=== PATIENT | male | born 1960 | race Caucasian/White ===

== ENCOUNTER → 2021-10-07 09:41 | Outpatient (BNVA) | payer MEDICARE, SELFPAY | PROVIDERS: PCP Internal Medicine; Visit Provider Hospitalist | DX: J44.9 Chronic obstructive pulmonary disease, unspecified (principal); J31.0 Chronic rhinitis; J84.9 Interstitial pulmonary disease, unspecified; R06.00 Dyspnea, unspecified; J34.89 Other specified disorders of nose and nasal sinuses; G47.33 Obstructive sleep apnea (adult) (pediatric); Z77.090 Contact with and (suspected) exposure to asbestos | CPT/HCPCS: 94618; 99202 ==

== ENCOUNTER 2021-12-23 10:36 | Outpatient (REF) | payer MEDICARE, SELFPAY | END 2021-12-23 10:37 | disposition home or self-care (01) | LOC: HO.XRAY 10:36 | PROVIDERS: PCP Internal Medicine; Visit Provider Hospitalist | DX: J84.9 Interstitial pulmonary disease, unspecified (principal); J44.9 Chronic obstructive pulmonary disease, unspecified; R06.00 Dyspnea, unspecified; G47.33 Obstructive sleep apnea (adult) (pediatric); J34.89 Other specified disorders of nose and nasal sinuses; Z77.090 Contact with and (suspected) exposure to asbestos | CPT/HCPCS: 99212 ==

== ENCOUNTER 2022-01-19 15:45 | Outpatient (REF) | payer MEDICARE, SELFPAY ==
--- NOTE | ~2022-01-19 | XR_ITS ---
EXAMINATION: XR CHEST CLINICAL INFORMATION: Difficulty breathing. Interstitial pulmonary disease COMPARISON: None TECHNIQUE: 2 views of the chest were obtained. FINDINGS: Heart size borderline with slight distention of the pulmonary vessels and an underlying prominence to the interstitial pattern suggestive of edema or pneumonitis. No pleural effusion. Postsurgical changes observed in the right shoulder joint. XR/XR chest 2V IMPRESSION: Initial pneumonitis versus edema.
== END 2022-01-19 15:46 | disposition home or self-care (01) ==
LOC: HO.XRAY 15:45
PROVIDERS: Visit Provider Hospitalist
DX: J84.9 Interstitial pulmonary disease, unspecified (principal)
CPT/HCPCS: 71046

== ENCOUNTER 2022-02-20 09:26 | Outpatient (REF) | payer MEDICARE, SELFPAY ==
[2022-02-20 15:35] LABS: MANUAL DIFF FLAG NO
[2022-02-20 15:47] LABS: Venous Blood Gas Refer to POC result
[2022-02-20 15:50] LABS: VBG pCO2 63 mmHg; VBG pO2 35 mmHg
[2022-02-20 15:51] LABS: VBG Base Excess 1.4 mmol/L; VBG HCO3 30 mmol/L (22-26)
[2022-02-20 15:52] LABS: VBG pH 7.28 (7.32-7.43)
[2022-02-20 15:58] LABS: Ammonia 31 umol/L (13-55); Basophils Percent Auto 0.4 % (0-2); Eosinophils Absolute Auto 0.2 X10*3/uL (0.0-0.4); Eosinophils Percent Auto 2.6 % (0-4); Hematocrit 51.9 % (42.0-52.0); Hemoglobin 16.7 g/dl (14.0-18.0); Imm Gran Abs Auto 0.03 X10*3/uL (0.00-0.03); Imm Gran Pct Auto 0.4 % (0.0-0.4); Lymphocytes Absolute Auto 1.4 X10*3/uL (1.2-4.9); Lymphocytes Percent Auto 18.8 % (20-40); Mean Corpuscular HGB Conc 32.2 g/dl (31.0-36.0); Mean Corpuscular Hemoglobin 29.3 pg (27.0-33.0); Mean Corpuscular Volume 91.2 fL (80.0-98.0); Mean Platelet Volume 10.2 fL (9.4-12.4); Monocytes Absolute Auto 0.5 X10*3/uL (0.1-1.2); Monocytes Percent Auto 6.3 % (2-11); Neutrophils Absolute Auto 5.2 x10*3/uL (2.0-8.3); Neutrophils Percent Auto 71.5 % (45-73); Platelet Count 179 X10*3/uL (160-400); Red Blood Count 5.69 X10*6/uL (4.60-5.80); Red Cell Distribution Width 13.2 % (11.0-16.0); White Blood Count 7.3 X10*3/uL (4.8-10.8)
[2022-02-20 16:05] LABS: Alanine Aminotransferase 21 U/L (0-40); Albumin Level 4.1 g/dL (3.5-5.0); Alkaline Phosphatase 112 U/L (39-117); Anion Gap 16 (12-20); Aspartate Amino Transferase 25 U/L (5-37); Bilirubin Direct 0.2 mg/dL (0.0-0.5); Bilirubin Total 0.7 mg/dL (0.0-1.0); Blood Urea Nitrogen 13 mg/dL (9-16); Calcium 10.4 mg/dL (8.4-10.2); Carbon Dioxide 28 mmol/L (22-29); Chloride 103 mmol/L (96-108); Estimated Glomerular Filt Rate > 60; Glucose Random 93 mg/dL (60-115); Potassium 5.9 mmol/L (3.3-5.1); Sodium 141 mmol/L (135-145); Total Protein 8.8 g/dL (6.5-8.0)
[2022-02-20 17:06] LABS: Erythrocyte Sedimentation Rate 22 MM/HR (0-15)
== END 2022-02-20 09:27 | disposition home or self-care (01) ==
LOC: HO.LAB 09:26
PROVIDERS: PCP Internal Medicine; Visit Provider Hospitalist
DX: J44.9 Chronic obstructive pulmonary disease, unspecified (principal); R41.82 Altered mental status, unspecified; J96.01 Acute respiratory failure with hypoxia; J96.02 Acute respiratory failure with hypercapnia; J84.9 Interstitial pulmonary disease, unspecified; J34.89 Other specified disorders of nose and nasal sinuses; Z77.090 Contact with and (suspected) exposure to asbestos
CPT/HCPCS: 36415; 80048; 80076; 82140; 82803; 85025; 85652; Q3014

== ENCOUNTER 2022-02-20 16:46 | Inpatient (IN) | payer MEDICARE, SELFPAY ==
--- NOTE | ~2022-02-20 | CT_ITS ---
EXAMINATION: CT CHEST WITHOUT CONTRAST CLINICAL INFORMATION: Cough, shortness of breath COMPARISON: X-ray 01/19/2022 TECHNIQUE: Multidetector volumetric CT imaging of the chest was done. Axial MIP volume rendering provided. Sagittal and coronal reformatted images were obtained. This CT examination was performed using dose optimization techniques as appropriate, variously including the following: *Automated exposure control *Adjustment of mA and/or kV according to patient size (this includes techniques or standardized protocols for targeted exams where dose is matched to indication/reason for exam; i.e. extremities or head) *Use of iterative reconstruction technique DLP: 375 mGy-cm FINDINGS: LUNGS: Trachea and central airway are patent. There is extensive multifocal groundglass opacities and interstitial prominence diffusely in bilateral lungs. More prominent confluent changes are seen in the inferior aspect of the right middle lobe, and in the right lower lobe, with component of peripheral distribution. Findings could reflect inflammatory, infectious process.. This pattern of infection can be seen in Covid disease. MEDIASTINUM: Heart size is borderline. Normal caliber aorta. No mediastinal or hilar lymphadenopathy seen. There are subcentimeter lymph nodes in the mediastinum. No pericardial effusion. CORONARY ARTERY CALCIFICATION: Coronary artery calcification present. PLEURA: There is no pleural effusion. No pleural mass or thickening. AXILLA: No axillary lymphadenopathy. UPPER ABDOMEN: Slightly lobular/nodular contour of the liver. No focal lesion seen. No biliary duct dilatation. Enlarged spleen measuring 15.7 cm AP. OSSEOUS STRUCTURES: There appears to severe right glenohumeral joint arthritis. Metallic screws/anchors in the right humeral head. Multilevel degenerative changes in the spine. CT/CT chest wo IV con IMPRESSION: 1. Multifocal groundglass opacities with interstitial prominence extensively in bilateral lungs, with more prominent changes in the right middle lobe inferiorly, in the right lower lobe. Differential consideration include infectious, inflammatory etiologies... This pattern can be seen with Covid disease, clinically correlate. Recommend follow-up imaging to ensure resolution of these findings. 2. Slightly lobulated contour of the liver. Splenomegaly. Clinically correlate. Further evaluation with follow-up ultrasound, CT without contrast as clinically warranted. 3. Severe right shoulder arthritis. Fleischner guidelines were followed.
[2022-02-20 16:48] VITALS: BP 146/76; PULSE 88; RESP 20; TEMP 36.3; O2SAT 95; BMI 32.8
--- NOTE | 2022-02-20 16:48 | ED_ITS ---
HPI - Recheck/Abnormal Lab/Rx General Chief Complaint: General Medical <Norma Anguiano CNP - Last Filed: 02/20/22 17:37> Stated Complaint: Abnormal labs <Norma Anguiano CNP - Last Filed: 02/20/22 17:37> Time Seen by Provider: 02/20/22 17:34 <Norma Anguiano CNP - Last Filed: 02/20/22 17:37> Source: patient <Tiffanie Lopez NP - Last Filed: 02/21/22 02:04> Mode of arrival: ambulatory <Tiffanie Lopez NP - Last Filed: 02/21/22 02:04> Limitations: no limitations <Tiffanie Lopez NP - Last Filed: 02/21/22 02:04> History of Present Illness HPI narrative: 61-year-old male with past medical history of COPD, history of asbestos exposure, GEOVANNI, presents from Dr. Alejandro's office for abnormal V BGs. Patient was evaluated by pulmonology for cough, drowsiness, and overall feeling unwell. Patient was referred to the emergency department for further workup. <Tiffanie Lopez NP - Last Filed: 02/21/22 02:04> MD complaint: abnormal lab <Tiffanie Lopez NP - Last Filed: 02/21/22 02:04> Returns today for: called because of abnormal lab/test <Tiffanie Lopez NP - Last Filed: 02/21/22 02:04> Symptoms since prior visit: no new symptoms <Tiffanie Lopez NP - Last Filed: 02/21/22 02:04> Associated symptoms: shortness of breath and other (Cough) <Tiffanie Lopez NP - Last Filed: 02/21/22 02:04> Related Data Home Medications: Home Medications Medication Instructions Recorded Confirmed albuterol sulfate 90 mcg/actuation 90 mcg inhalation Q4H PRN Wheezing 10/07/21 02/20/22 aerosol inhaler furosemide 40 mg tablet 40 mg PO BID 10/07/21 02/20/22 gabapentin 300 mg capsule 300 mg PO TID 10/07/21 02/20/22 omeprazole 40 mg capsule,delayed 40 mg PO DAILY@0630 10/07/21 02/20/22 release spironolactone 50 mg tablet 50 mg PO DAILY 10/07/21 02/20/22 fluticasone propionate 50 2 spray intranasal DAILY PRN 02/20/22 02/20/22 mcg/actuation nasal Congestion spray,suspension lactulose 10 gram/15 mL oral 15 ml PO TID PRN Constipation 02/20/22 02/20/22 solution multivitamin 1 tab PO DAILY 02/20/22 02/20/22 venlafaxine 75 mg capsule,extended 1 cap PO DAILY 02/20/22 02/20/22 release 24 hr Previous Rx's Medication Instructions Recorded fluticasone 113 mcg-salmeterol 14 1 inh inhalation BID #1 ea 10/07/21 mcg/actuation breath activated powdr (AirDuo RespiClick) prednisone 20 mg tablet See Rx Instructions PO DAILY 10 02/20/22 days #15 tabs <Norma Anguiano CNP - Last Filed: 02/20/22 17:37> Allergies/Adverse Reactions: Allergies Allergy/AdvReac Type Severity Reaction Status Date / Time No Known Allergies Allergy Verified 02/20/22 09:27 <Norma Anguiano CNP - Last Filed: 02/20/22 17:37> Review of Systems Review of Systems: Constitutional: No Fever, No Chills ENT/Mouth: No Ear Pain, positive Hoarseness, No sore throat Cardiovascular: No Chest Pain, positive SOB Respiratory: Positive Cough, positive Dyspnea Gastrointestinal: No Nausea, No Vomiting, No Diarrhea, No abdominal Pain Genitourinary: No Dysuria, No Hematuria Musculoskeletal: No joint pain, No Myalgias, No Joint Swelling Skin: No Skin lacerations, No rash Neuro: Positive Weakness, No Dizziness, No Headache Psych: No Anxiety/Panic, No Depression <Tiffanie Lopez NP - Last Filed: 02/21/22 02:04> Yes all other systems are reviewed and are negative <Tiffanie Lopez NP - Last Filed: 02/21/22 02:04> PMFSH Past Medical History Attestation statement: The following information was validated with the patient. <ROSARIO Swanson Last Filed: 02/21/22 02:04> Source: old records reviewed <Tiffanie Lopez NP - Last Filed: 02/21/22 02:04> Medical History: Medical History Altered mental state Asbestos exposure COPD (chronic obstructive pulmonary disease) Dyspnea ILD (interstitial lung disease) Nasal septal perforation GEOVANNI (obstructive sleep apnea) <Norma Anguiano ANJUM - Last Filed: 02/20/22 17:37> Social History Social History: Social History Household Members: Spouse Housing: House Patient Tobacco Use Status: Never used Tobacco Substance Use Type: Other <Norma AnguianoANJUM - Last Filed: 02/20/22 17:37> Physical Exam Vital Signs: Vital Signs: Last Vital Signs Temp 97.9 F 02/21/22 01:13 Pulse 79 02/21/22 01:13 Resp 17 02/21/22 01:13 BP 138/72 02/21/22 01:13 Pulse Ox 96 02/21/22 01:13 O2 Del Method 02/21/22 01:13 BMI result Body Mass Index 32.8 <Norma Anguiano CNP - Last Filed: 02/20/22 17:37> Vital Signs: Last Vital Signs Temp 97.9 F 02/21/22 01:13 Pulse 79 02/21/22 01:13 Resp 17 02/21/22 01:13 BP 138/72 02/21/22 01:13 Pulse Ox 96 02/21/22 01:13 O2 Del Method 02/21/22 01:13 BMI result Body Mass Index 32.8 <Tiffanie Lopez ROLLING MILL OPERATOR HELPER - Last Filed: 02/21/22 02:04> Appearance: Alert. Oriented X3. Moderate distress. Eyes: Pupils equal, round and reactive to light. ENT: Pharynx normal. Neck: Normal inspection. Neck supple. CVS: Normal heart rate and rhythm. Pulses normal. Respiratory: No respiratory distress. Coarse lung sounds with expiratory wheezi ng throughout. Abdomen: Soft and nontender. Skin: Skin warm and dry. Normal skin color. Normal skin turgor. Extremities: No lower extremity edema. Gait well-balanced well coordinated. Neuro: No motor deficit. No sensory deficit. Cranial nerves 2-12 intact <Tiffanie Lopez NP - Last Filed: 02/21/22 02:04> Course Course Course Narrative: This is an RME: Additional HPI, ROS, PE not included below will be deferred to primary provider. Patient is a 61-year-old male who was sent to emergency department by recommendation of Dr. Alejandro, history of COPD with increased drowsiness, cough, fatigue over the past week. Had venous blood gases obtained 1 hour ago,reviewed im EMR, concerning for respiratory acidosis, CO2 retention. Uses O2 only at nighttime. No apparent respiratory distress, LS rhonchi bilaterally, no tachypnea or hypoxia, Speaking clear short sentences. Plan: Spoke with gas charger, patient moved back to room, labs, CXR, viral testing <Norma Anguiano CNP - Last Filed: 02/20/22 17:37> This is an RME: Additional HPI, ROS, PE not included below will be deferred to primary provider. Patient is a 61-year-old male who was sent to emergency department by recommendation of Dr. Alejandro, history of COPD with increased drowsiness, cough, fatigue over the past week. Had venous blood gases obtained 1 hour ago,reviewed im EMR, concerning for respiratory acidosis, CO2 retention. Uses O2 only at nighttime. No apparent respiratory distress, LS rhonchi bilaterally, no tachypnea or hypoxia, Speaking clear short sentences. Plan: Spoke with gas charger, patient moved back to room, labs, CXR, viral testing 61-year-old male presents with suspected acute on chronic hypercarbic respiratory failure from Dr. Alejandro's office. The patient does have a significant lung history of asbestos exposure, COPD, GEOVANNI. Physical exam indicates coarse lung sounds throughout with poor air flow, will order nebulizers, and repeat lab values. Will add on lactic, cultures, Solu-Medrol, fluids, and ceftriaxone. 17:[address] scan of chest. 20:44 CT scan indicates multifocal ground-glass opacities extensively in the bilateral lungs, consistent with COVID however patient is COVID influenza RSV negative. I did discuss these findings with Dr. Alejandro, plan of care is to admit. Ambulatory pulse ox is 86% on room air. Lactic acid is elevated however this is not sepsis, this is due to respiratory acidosis. Plan of care is to admit for hypoxia. I did discuss this case with hospitalist, plan of care is to admit. <Tiffanie Lopez NP - Last Filed: 02/21/22 02:04> Consultations Consultation #1: Javon <Tiffanie Lopez NP - Last Filed: 02/21/22 02:04> Time: 20:46 <Tiffanie Lopez ROLLING MILL OPERATOR HELPER - Last Filed: 02/21/22 02:04> Consultation #2: Kyle <Tiffanie Lopez ROLLING MILL OPERATOR HELPER - Last Filed: 02/21/22 02:04> Time: 20:48 <Tiffanie Lopez ROLLING MILL OPERATOR HELPER - Last Filed: 02/21/22 02:04> Medications Administered Generic Name Dose Route Start Last Admin Trade Name Freq PRN Reason Stop Dose Admin Benzonatate 200 mg 02/20/22 21:49 02/21/22 00:39 Benzonatate 100 Mg Capsule PO 200 mg TID PRN Administration cough Enoxaparin Sodium 40 mg 02/20/22 22:00 02/20/22 22:15 Enoxaparin Sodium 40 Mg/0.4 Ml Syringe SUBCUT 40 mg Q24H STEFFANY Administration Sodium Chloride 3 ml 02/21/22 00:00 02/21/22 00:37 0.9 % Sodium Chloride Flush 3 Ml Syringe IVFLUSH Not Given QSHIFT STEFFANY Discontinued Medications Generic Name Dose Route Start Last Admin Trade Name Freq PRN Reason Stop Dose Admin Albuterol Sulfate 7.5 mg/ 10 mg 02/20/22 17:44 02/20/22 17:51 Albuterol Sulfate 2.5 mg INHALE 02/20/22 17:45 10 mg ONCE ONE Administration Azithromycin 500 mg 02/20/22 20:50 02/20/22 21:14 Azithromycin 500 Mg Tablet PO 02/20/22 20:51 500 mg ONCE ONE Administration Furosemide 40 mg 02/20/22 17:45 02/20/22 18:15 Furosemide 40 Mg/4 Ml Vial IVPUSH 02/20/22 17:46 40 mg ONCE ONE Administration Protocol Ceftriaxone Sodium 1 gm/ 50 mls @ 100 mls/hr 02/20/22 17:44 02/20/22 19:20 Sodium Chloride IV 02/20/22 18:13 Infused ONCE ONE Infusion Sodium Chloride 1,000 mls @ 999 mls/hr 02/20/22 23:45 02/21/22 00:31 Ns IV 02/21/22 00:45 999 mls/hr .Q1H1M ONE Administration Methylprednisolone Sodium Succinate 125 mg 02/20/22 17:44 02/20/22 18:15 Methylprednisolone Sod Succ 125 Mg/2 Ml Vial IVPUSH 02/20/22 17:45 125 mg ONCE ONE Administration <Norma Anguiano, FRAME PULLEY MORTISING MACHINE OPERATOR - Last Filed: 02/20/22 17:37> Medications Administered Generic Name Dose Route Start Last Admin Trade Name Frelina PRN Reason Stop Dose Admin Benzonatate 200 mg 02/20/22 21:49 02/21/22 00:39 Benzonatate 100 Mg Capsule PO 200 mg TID PRN Administration cough Enoxaparin Sodium 40 mg 02/20/22 22:00 02/20/22 22:15 Enoxaparin Sodium 40 Mg/0.4 Ml Syringe SUBCUT 40 mg Q24H STEFFANY Administration Sodium Chloride 3 ml 02/21/22 00:00 02/21/22 00:37 0.9 % Sodium Chloride Flush 3 Ml Syringe IVFLUSH Not Given QSHIFT STEFFANY Discontinued Medications Generic Name Dose Route Start Last Admin Trade Name Celia PRN Reason Stop Dose Admin Albuterol Sulfate 7.5 mg/ 10 mg 02/20/22 17:44 02/20/22 17:51 Albuterol Sulfate 2.5 mg INHALE 02/20/22 17:45 10 mg ONCE ONE Administration Azithromycin 500 mg 02/20/22 20:50 02/20/22 21:14 Azithromycin 500 Mg Tablet PO 02/20/22 20:51 500 mg ONCE ONE Administration Furosemide 40 mg 02/20/22 17:45 02/20/22 18:15 Furosemide 40 Mg/4 Ml Vial IVPUSH 02/20/22 17:46 40 mg ONCE ONE Administration Protocol Ceftriaxone Sodium 1 gm/ 50 mls @ 100 mls/hr 02/20/22 17:44 02/20/22 19:20 Sodium Chloride IV 02/20/22 18:13 Infused ONCE ONE Infusion Sodium Chloride 1,000 mls @ 999 mls/hr 02/20/22 23:45 02/21/22 00:31 Ns IV 02/21/22 00:45 999 mls/hr .Q1H1M ONE Administration Methylprednisolone Sodium Succinate 125 mg 02/20/22 17:44 02/20/22 18:15 Methylprednisolone Sod Succ 125 Mg/2 Ml Vial IVPUSH 02/20/22 17:45 125 mg ONCE ONE Administration <Tiffanie Lopez NP - Last Filed: 02/21/22 02:04> Medical Decision Making Differential Diagnosis Differential Diagnoses: The differential diagnosis associated with the presentation includes <Tiffanie Lopez NP - Last Filed: 02/21/22 02:04> Hypoxia, respiratory failure, pneumonia, COVID, influenza, RSV, metastatic disease <Tiffanie Lopez NP - Last Filed: 02/21/22 02:04> Admission/Observation Consideration of admission/observation: Escalation of care including admission/observation considered <Tiffanie Lopez NP - Last Filed: 02/21/22 02:04> High likelihood for admission <Tiffanie Lopez NP - Last Filed: 02/21/22 02:04> Consult Healthcare Provider Management of the patient was discussed with: Hospitalist and Front Office Secretary <Tiffanie Lopez NP - Last Filed: 02/21/22 02:04> Lab Data MDM Lab Attestation statement: I reviewed the patient's lab results. <Tiffanie Lopez NP - Last Filed: 02/21/22 02:04> Result Diagrams: 02/20/22 18:03 02/20/22 18:02 <Norma Anguiano CNP - Last Filed: 02/20/22 17:37> Labs: Lab Results 02/20/22 02/20/22 02/20/22 Range/Units 18:02 18:02 18:02 WBC (4.8-10.8) X10*3/uL RBC (4.60-5.80) X10*6/uL Hgb (14.0-18.0) g/dl Hct (42.0-52.0) % MCV (80.0-98.0) fL MCH (27.0-33.0) pg MCHC (31.0-36.0) g/dl RDW (11.0-16.0) % Plt Count (160-400) X10*3/uL MPV (9.4-12.4) fL Immature Gran % (Auto) (0.0-0.4) % Neut % (Auto) (45-73) % Lymph % (Auto) (20-40) % Lares % (Auto) (2-11) % Eos % (Auto) (0-4) % Baso % (Auto) (0-2) % Lymph # (Auto) (1.2-4.9) X10*3/uL Lares # (Auto) (0.1-1.2) X10*3/uL Eos # (Auto) (0.0-0.4) X10*3/uL Baso # (Auto) (0.0-0.2) X10*3/uL Abs Immat Gran (auto) (0.00-0.03) X10*3/uL Absolute Neuts (auto) (2.0-8.3) x10*3/uL Absolute Nucleated RBC (0.0-0.012) X10*3/uL Nucleated RBC % (auto) (0.0-0.2) /100WBC O2 Saturation % ABG pH at Pt Temp (7.35-7.45) ABG pCO2 at Pt Temp (32-45) mmHg ABG pO2 at Pt Temp (83-108) mmHg ABG HCO3 (22-26) mmol/L ABG Base Excess (Actual) mmol/L Sodium 138 (135-145) mmol/L Potassium 4.0 D (3.3-5.1) mmol/L Chloride 103 (96-108) mmol/L Carbon Dioxide 24 (22-29) mmol/L Anion Gap 15 (12-20) BUN 12 (9-16) mg/dL Creatinine 0.85 (0.5-1.4) mg/dL Estim Creat Clear Calc 97.8 Estimated GFR > 60 Random Glucose 91 (60-115) mg/dL Lactic Acid (0.5-2.0) mmol/L Lactic Acid F/U @ 2Hr (0.5-2.0) mmol/L Calcium 9.8 (8.4-10.2) mg/dL Magnesium 2.0 (1.6-2.6) mg/dL Total Bilirubin 0.5 (0.0-1.0) mg/dL AST 26 (5-37) U/L ALT 20 (0-40) U/L Alkaline Phosphatase 103 (39-117) U/L Troponin I High Sens (<3.5-35.0) ng/L B-Natriuretic Peptide (<100) pg/mL Total Protein 8.5 H (6.5-8.0) g/dL Albumin 4.0 (3.5-5.0) g/dL COVID-19 (RONEY) Negative (Negative) COVID-19 Clin Com See Note Influenza Type A (EVELYN) Negative (Negative) Influenza Type B (EVELYN) Negative (Negative) Influenza A & B Note See Note 02/20/22 02/20/22 02/20/22 Range/Units 18:02 18:02 18:02 WBC (4.8-10.8) X10*3/uL RBC (4.60-5.80) X10*6/uL Hgb (14.0-18.0) g/dl Hct (42.0-52.0) % MCV (80.0-98.0) fL MCH (27.0-33.0) pg MCHC (31.0-36.0) g/dl RDW (11.0-16.0) % Plt Count (160-400) X10*3/uL MPV (9.4-12.4) fL Immature Gran % (Auto) (0.0-0.4) % Neut % (Auto) (45-73) % Lymph % (Auto) (20-40) % Lares % (Auto) (2-11) % Eos % (Auto) (0-4) % Baso % (Auto) (0-2) % Lymph # (Auto) (1.2-4.9) X10*3/uL Lares # (Auto) (0.1-1.2) X10*3/uL Eos # (Auto) (0.0-0.4) X10*3/uL Baso # (Auto) (0.0-0.2) X10*3/uL Abs Immat Gran (auto) (0.00-0.03) X10*3/uL Absolute Neuts (auto) (2.0-8.3) x10*3/uL Absolute Nucleated RBC (0.0-0.012) X10*3/uL Nucleated RBC % (auto) (0.0-0.2) /100WBC O2 Saturation % ABG pH at Pt Temp (7.35-7.45) ABG pCO2 at Pt Temp (32-45) mmHg ABG pO2 at Pt Temp (83-108) mmHg ABG HCO3 (22-26) mmol/L ABG Base Excess (Actual) mmol/L Sodium (135-145) mmol/L Potassium (3.3-5.1) mmol/L Chloride (96-108) mmol/L Carbon Dioxide (22-29) mmol/L Anion Gap (12-20) BUN (9-16) mg/dL Creatinine (0.5-1.4) mg/dL Estim Creat Clear Calc Estimated GFR Random Glucose (60-115) mg/dL Lactic Acid 2.5 H* (0.5-2.0) mmol/L Lactic Acid F/U @ 2Hr (0.5-2.0) mmol/L Calcium (8.4-10.2) mg/dL Magnesium (1.6-2.6) mg/dL Total Bilirubin (0.0-1.0) mg/dL AST (5-37) U/L ALT (0-40) U/L Alkaline Phosphatase (39-117) U/L Troponin I High Sens < 3.5 (<3.5-35.0) ng/L B-Natriuretic Peptide 21 (<100) pg/mL Total Protein (6.5-8.0) g/dL Albumin (3.5-5.0) g/dL COVID-19 (RONEY) (Negative) COVID-19 Clin Com Influenza Type A (EVELYN) (Negative) Influenza Type B (EVELYN) (Negative) Influenza A & B Note 02/20/22 02/20/22 02/20/22 Range/Units 18:03 20:23 21:29 WBC 8.1 (4.8-10.8) X10*3/uL RBC 5.62 (4.60-5.80) X10*6/uL Hgb 16.6 (14.0-18.0) g/dl Hct 51.5 (42.0-52.0) % MCV 91.6 (80.0-98.0) fL MCH 29.5 (27.0-33.0) pg MCHC 32.2 (31.0-36.0) g/dl RDW 13.2 (11.0-16.0) % Plt Count 163 (160-400) X10*3/uL MPV 9.9 (9.4-12.4) fL Immature Gran % (Auto) 0.2 (0.0-0.4) % Neut % (Auto) 66.8 (45-73) % Lymph % (Auto) 24.0 (20-40) % Lares % (Auto) 5.6 (2-11) % Eos % (Auto) 3.0 (0-4) % Baso % (Auto) 0.4 (0-2) % Lymph # (Auto) 1.9 (1.2-4.9) X10*3/uL Lares # (Auto) 0.5 (0.1-1.2) X10*3/uL Eos # (Auto) 0.2 (0.0-0.4) X10*3/uL Baso # (Auto) 0.0 (0.0-0.2) X10*3/uL Abs Immat Gran (auto) 0.02 (0.00-0.03) X10*3/uL Absolute Neuts (auto) 5.4 (2.0-8.3) x10*3/uL Absolute Nucleated RBC 0.000 (0.0-0.012) X10*3/uL Nucleated RBC % (auto) 0.0 (0.0-0.2) /100WBC O2 Saturation 96.0 % ABG pH at Pt Temp 7.43 (7.35-7.45) ABG pCO2 at Pt Temp 30 L (32-45) mmHg ABG pO2 at Pt Temp 84 (83-108) mmHg ABG HCO3 20 L (22-26) mmol/L ABG Base Excess (Actual) -2.2 mmol/L Sodium (135-145) mmol/L Potassium (3.3-5.1) mmol/L Chloride (96-108) mmol/L Carbon Dioxide (22-29) mmol/L Anion Gap (12-20) BUN (9-16) mg/dL Creatinine (0.5-1.4) mg/dL Estim Creat Clear Calc Estimated GFR Random Glucose (60-115) mg/dL Lactic Acid (0.5-2.0) mmol/L Lactic Acid F/U @ 2Hr 2.7 H* (0.5-2.0) mmol/L Calcium (8.4-10.2) mg/dL Magnesium (1.6-2.6) mg/dL Total Bilirubin (0.0-1.0) mg/dL AST (5-37) U/L ALT (0-40) U/L Alkaline Phosphatase (39-117) U/L Troponin I High Sens (<3.5-35.0) ng/L B-Natriuretic Peptide (<100) pg/mL Total Protein (6.5-8.0) g/dL Albumin (3.5-5.0) g/dL COVID-19 (RONEY) (Negative) COVID-19 Clin Com Influenza Type A (EVELYN) (Negative) Influenza Type B (EVELYN) (Negative) Influenza A & B Note <Norma Anguiano CNP - Last Filed: 02/20/22 17:37> Lab Results 02/20/22 02/20/22 02/20/22 Range/Units 18:02 18:02 18:02 WBC (4.8-10.8) X10*3/uL RBC (4.60-5.80) X10*6/uL Hgb (14.0-18.0) g/dl Hct (42.0-52.0) % MCV (80.0-98.0) fL MCH (27.0-33.0) pg MCHC (31.0-36.0) g/dl RDW (11.0-16.0) % Plt Count (160-400) X10*3/uL MPV (9.4-12.4) fL Immature Gran % (Auto) (0.0-0.4) % Neut % (Auto) (45-73) % Lymph % (Auto) (20-40) % Lares % (Auto) (2-11) % Eos % (Auto) (0-4) % Baso % (Auto) (0-2) % Lymph # (Auto) (1.2-4.9) X10*3/uL Lares # (Auto) (0.1-1.2) X10*3/uL Eos # (Auto) (0.0-0.4) X10*3/uL Baso # (Auto) (0.0-0.2) X10*3/uL Abs Immat Gran (auto) (0.00-0.03) X10*3/uL Absolute Neuts (auto) (2.0-8.3) x10*3/uL Absolute Nucleated RBC (0.0-0.012) X10*3/uL Nucleated RBC % (auto) (0.0-0.2) /100WBC O2 Saturation % ABG pH at Pt Temp (7.35-7.45) ABG pCO2 at Pt Temp (32-45) mmHg ABG pO2 at Pt Temp (83-108) mmHg ABG HCO3 (22-26) mmol/L ABG Base Excess (Actual) mmol/L Sodium 138 (135-145) mmol/L Potassium 4.0 D (3.3-5.1) mmol/L Chloride 103 (96-108) mmol/L Carbon Dioxide 24 (22-29) mmol/L Anion Gap 15 (12-20) BUN 12 (9-16) mg/dL Creatinine 0.85 (0.5-1.4) mg/dL Estim Creat Clear Calc 97.8 Estimated GFR > 60 Random Glucose 91 (60-115) mg/dL Lactic Acid (0.5-2.0) mmol/L Lactic Acid F/U @ 2Hr (0.5-2.0) mmol/L Calcium 9.8 (8.4-10.2) mg/dL Magnesium 2.0 (1.6-2.6) mg/dL Total Bilirubin 0.5 (0.0-1.0) mg/dL AST 26 (5-37) U/L ALT 20 (0-40) U/L Alkaline Phosphatase 103 (39-117) U/L Troponin I High Sens (<3.5-35.0) ng/L B-Natriuretic Peptide (<100) pg/mL Total Protein 8.5 H (6.5-8.0) g/dL Albumin 4.0 (3.5-5.0) g/dL COVID-19 (RONEY) Negative (Negative) COVID-19 Clin Com See Note Influenza Type A (EVELYN) Negative (Negative) Influenza Type B (EVELYN) Negative (Negative) Influenza A & B Note See Note 02/20/22 02/20/22 02/20/22 Range/Units 18:02 18:02 18:02 WBC (4.8-10.8) X10*3/uL RBC (4.60-5.80) X10*6/uL Hgb (14.0-18.0) g/dl Hct (42.0-52.0) % MCV (80.0-98.0) fL MCH (27.0-33.0) pg MCHC (31.0-36.0) g/dl RDW (11.0-16.0) % Plt Count (160-400) X10*3/uL MPV (9.4-12.4) fL Immature Gran % (Auto) (0.0-0.4) % Neut % (Auto) (45-73) % Lymph % (Auto) (20-40) % Lares % (Auto) (2-11) % Eos % (Auto) (0-4) % Baso % (Auto) (0-2) % Lymph # (Auto) (1.2-4.9) X10*3/uL Lares # (Auto) (0.1-1.2) X10*3/uL Eos # (Auto) (0.0-0.4) X10*3/uL Baso # (Auto) (0.0-0.2) X10*3/uL Abs Immat Gran (auto) (0.00-0.03) X10*3/uL Absolute Neuts (auto) (2.0-8.3) x10*3/uL Absolute Nucleated RBC (0.0-0.012) X10*3/uL Nucleated RBC % (auto) (0.0-0.2) /100WBC O2 Saturation % ABG pH at Pt Temp (7.35-7.45) ABG pCO2 at Pt Temp (32-45) mmHg ABG pO2 at Pt Temp (83-108) mmHg ABG HCO3 (22-26) mmol/L ABG Base Excess (Actual) mmol/L Sodium (135-145) mmol/L Potassium (3.3-5.1) mmol/L Chloride (96-108) mmol/L Carbon Dioxide (22-29) mmol/L Anion Gap (12-20) BUN (9-16) mg/dL Creatinine (0.5-1.4) mg/dL Estim Creat Clear Calc Estimated GFR Random Glucose (60-115) mg/dL Lactic Acid 2.5 H* (0.5-2.0) mmol/L Lactic Acid F/U @ 2Hr (0.5-2.0) mmol/L Calcium (8.4-10.2) mg/dL Magnesium (1.6-2.6) mg/dL Total Bilirubin (0.0-1.0) mg/dL AST (5-37) U/L ALT (0-40) U/L Alkaline Phosphatase (39-117) U/L Troponin I High Sens < 3.5 (<3.5-35.0) ng/L B-Natriuretic Peptide 21 (<100) pg/mL Total Protein (6.5-8.0) g/dL Albumin (3.5-5.0) g/dL COVID-19 (RONEY) (Negative) COVID-19 Clin Com Influenza Type A (EVELYN) (Negative) Influenza Type B (EVELYN) (Negative) Influenza A & B Note 02/20/22 02/20/22 02/20/22 Range/Units 18:03 20:23 21:29 WBC 8.1 (4.8-10.8) X10*3/uL RBC 5.62 (4.60-5.80) X10*6/uL Hgb 16.6 (14.0-18.0) g/dl Hct 51.5 (42.0-52.0) % MCV 91.6 (80.0-98.0) fL MCH 29.5 (27.0-33.0) pg MCHC 32.2 (31.0-36.0) g/dl RDW 13.2 (11.0-16.0) % Plt Count 163 (160-400) X10*3/uL MPV 9.9 (9.4-12.4) fL Immature Gran % (Auto) 0.2 (0.0-0.4) % Neut % (Auto) 66.8 (45-73) % Lymph % (Auto) 24.0 (20-40) % Lares % (Auto) 5.6 (2-11) % Eos % (Auto) 3.0 (0-4) % Baso % (Auto) 0.4 (0-2) % Lymph # (Auto) 1.9 (1.2-4.9) X10*3/uL Lares # (Auto) 0.5 (0.1-1.2) X10*3/uL Eos # (Auto) 0.2 (0.0-0.4) X10*3/uL Baso # (Auto) 0.0 (0.0-0.2) X10*3/uL Abs Immat Gran (auto) 0.02 (0.00-0.03) X10*3/uL Absolute Neuts (auto) 5.4 (2.0-8.3) x10*3/uL Absolute Nucleated RBC 0.000 (0.0-0.012) X10*3/uL Nucleated RBC % (auto) 0.0 (0.0-0.2) /100WBC O2 Saturation 96.0 % ABG pH at Pt Temp 7.43 (7.35-7.45) ABG pCO2 at Pt Temp 30 L (32-45) mmHg ABG pO2 at Pt Temp 84 (83-108) mmHg ABG HCO3 20 L (22-26) mmol/L ABG Base Excess (Actual) -2.2 mmol/L Sodium (135-145) mmol/L Potassium (3.3-5.1) mmol/L Chloride (96-108) mmol/L Carbon Dioxide (22-29) mmol/L Anion Gap (12-20) BUN (9-16) mg/dL Creatinine (0.5-1.4) mg/dL Estim Creat Clear Calc Estimated GFR Random Glucose (60-115) mg/dL Lactic Acid (0.5-2.0) mmol/L Lactic Acid F/U @ 2Hr 2.7 H* (0.5-2.0) mmol/L Calcium (8.4-10.2) mg/dL Magnesium (1.6-2.6) mg/dL Total Bilirubin (0.0-1.0) mg/dL AST (5-37) U/L ALT (0-40) U/L Alkaline Phosphatase (39-117) U/L Troponin I High Sens (<3.5-35.0) ng/L B-Natriuretic Peptide (<100) pg/mL Total Protein (6.5-8.0) g/dL Albumin (3.5-5.0) g/dL COVID-19 (RONEY) (Negative) COVID-19 Clin Com Influenza Type A (EVELYN) (Negative) Influenza Type B (EVELYN) (Negative) Influenza A & B Note <Tiffanie Lopez NP - Last Filed: 02/21/22 02:04> Independent Interpretation I performed an independent interpretation of an: EKG and CT Scan <Tiffanie Lopez NP - Last Filed: 02/21/22 02:04> Interpretation: Vent. rate 90 BPM MI interval 136 ms QRS duration 76 ms QT/QTc 346/423 ms P-R-T axes 71 1 23 Normal sinus rhythm Cannot rule out Anterior infarct , age undetermined Abnormal ECG No previous ECGs available 20-FEB-2022 18:02:12 <Tiffanie Lopez NP - Last Filed: 02/21/22 02:04> Radiology Impression Discussion of test interpretation with radiology: I have reviewed the radiologist's reading. <Tiffanie Lopez NP - Last Filed: 02/21/22 02:04> Radiologist Impression: FINDINGS: LUNGS: Trachea and central airway are patent. There is extensive multifocal groundglass opacities and interstitial prominence diffusely in bilateral lungs. More prominent confluent changes are seen in the inferior aspect of the right middle lobe, and in the right lower lobe, with component of peripheral distribution. Findings could reflect inflammatory, infectious process.. This pattern of infection can be seen in Covid disease. MEDIASTINUM: Heart size is borderline. Normal caliber aorta. No mediastinal or hilar lymphadenopathy seen. There are subcentimeter lymph nodes in the mediastinum. No pericardial effusion.? CORONARY ARTERY CALCIFICATION: Coronary artery calcification present. PLEURA: There is no pleural effusion. No pleural mass or thickening.? AXILLA: No axillary lymphadenopathy.? UPPER ABDOMEN: Slightly lobular/nodular contour of the liver. No focal lesion seen. No biliary duct dilatation. Enlarged spleen measuring 15.7 cm AP.? OSSEOUS STRUCTURES: There appears to severe right glenohumeral joint arthritis. Metallic screws/anchors in the right humeral head. Multilevel degenerative changes in the spine.? CT/CT chest wo IV con IMPRESSION: 1. Multifocal groundglass opacities with interstitial prominence extensively in bilateral lungs, with more prominent changes in the right middle lobe inferiorly, in the right lower lobe. Differential consideration include infectious, inflammatory etiologies... This pattern can be seen with Covid disease, clinically correlate. Recommend follow-up imaging to ensure resolution of these findings. ? 2. Slightly lobulated contour of the liver. Splenomegaly. Clinically correlate. Further evaluation with follow-up ultrasound, CT without contrast as clinically warranted. ? 3. Severe right shoulder arthritis. ? Fleischner guidelines were followed. <Tiffanie Lopez NP - Last Filed: 02/21/22 02:04> Independent Historian Clinical information obtained from an independent historian. History obtained from or confirmed by: Spouse <Tiffanie Lopez NP - Last Filed: 02/21/22 02:04> External Record Review External record reviewed: Inpatient record, Outpatient record and Prior outpatient labs <Tiffanie Lopez NP - Last Filed: 02/21/22 02:04> Prescription Management I considered prescription management with: Antibiotic <Tiffanie Lopez NP - Last Filed: 02/21/22 02:04> Critical Care Time Critical Care Time Critical Care Time: Yes <Tiffanie Lopez NP - Last Filed: 02/21/22 02:04> Total Critical Care Time: 45 <Tiffanie Lopez NP - Last Filed: 02/21/22 02:04> Attestation: I have personally provided critical care time exclusive of time spent on separately billable procedures. Time includes review of laboratory data, radiology results, discussion with consultants, and monitoring for potential decompensation. Interventions were performed as documented. <ROSARIO Swanson Last Filed: 02/21/22 02:04> Discharge Plan Discharge Clinical Impression: Hypoxia, Acute respiratory failure with hypoxia and hypercarbia, Pneumonia <Norma Anguiano CNP - Last Filed: 02/20/22 17:37> Patient Disposition: Admitted As Inpatient <Norma Anguiano CNP - Last Filed: 02/20/22 17:37> Interventions: Admission Worksheet (ED) Last Done: 02/20/22 23:40 <Norma Anguiano CNP - Last Filed: 02/20/22 17:37> Discharge Date/Time: 02/20/22 23:42 <Norma Anguiano CNP - Last Filed: 02/20/22 17:37>
--- NOTE | 2022-02-20 17:36 | ECG_ITS ---
Test Reason : SOB Blood Pressure : / mmHG Vent. Rate : 090 BPM Atrial Rate : 090 BPM P-R Int : 136 ms QRS Dur : 076 ms QT Int : 346 ms P-R-T Axes : 071 001 023 degrees QTc Int : 423 ms Normal sinus rhythm Cannot rule out Anterior infarct , age undetermined Nonspecific ST and T wave abnormality Abnormal ECG No previous ECGs available Referred By: Tiffanie Lopez Electronically Signed By:AMANDA LOERA
[2022-02-20] MEDS: Albuterol Sulfate 7.5 MG, Albuterol Sulfate (0.083%) 2.5 MG 10 MG INHALE (17:51)
[2022-02-20 17:54] VITALS: RESP 18; O2SAT 96
[2022-02-20 18:15] LABS: MANUAL DIFF FLAG NO
[2022-02-20] MEDS: cefTRIAXone sodium 1 GM in 0.9 % Sodium Chloride 50 ML IV (18:15)
[2022-02-20] MEDS: Furosemide 40 MG/4 ML VIAL IVPUSH (18:15)
[2022-02-20] MEDS: methylPREDNISolone Sod Succ 125 MG/2 ML VIAL IVPUSH (18:15)
[2022-02-20 18:17] LABS: Basophils Percent Auto 0.4 % (0-2); Eosinophils Absolute Auto 0.2 X10*3/uL (0.0-0.4); Hematocrit 51.5 % (42.0-52.0); Hemoglobin 16.6 g/dl (14.0-18.0); Imm Gran Abs Auto 0.02 X10*3/uL (0.00-0.03); Imm Gran Pct Auto 0.2 % (0.0-0.4); Lymphocytes Absolute Auto 1.9 X10*3/uL (1.2-4.9); Mean Corpuscular HGB Conc 32.2 g/dl (31.0-36.0); Mean Corpuscular Hemoglobin 29.5 pg (27.0-33.0); Mean Corpuscular Volume 91.6 fL (80.0-98.0); Mean Platelet Volume 9.9 fL (9.4-12.4); Monocytes Absolute Auto 0.5 X10*3/uL (0.1-1.2); Monocytes Percent Auto 5.6 % (2-11); Neutrophils Absolute Auto 5.4 x10*3/uL (2.0-8.3); Neutrophils Percent Auto 66.8 % (45-73); Platelet Count 163 X10*3/uL (160-400); Red Blood Count 5.62 X10*6/uL (4.60-5.80); Red Cell Distribution Width 13.2 % (11.0-16.0); White Blood Count 8.1 X10*3/uL (4.8-10.8)
[2022-02-20 18:33] LABS: Alanine Aminotransferase 20 U/L (0-40); Alkaline Phosphatase 103 U/L (39-117); Anion Gap 15 (12-20); Aspartate Amino Transferase 26 U/L (5-37); Bilirubin Total 0.5 mg/dL (0.0-1.0); Blood Urea Nitrogen 12 mg/dL (9-16); Calcium 9.8 mg/dL (8.4-10.2); Carbon Dioxide 24 mmol/L (22-29); Chloride 103 mmol/L (96-108); Creatinine Clr Calc Pharmacy 97.8; Estimated Glomerular Filt Rate > 60; Glucose Random 91 mg/dL (60-115); Sodium 138 mmol/L (135-145); Total Protein 8.5 g/dL (6.5-8.0)
[2022-02-20 18:34] LABS: Lactic Acid 2.5 mmol/L (0.5-2.0)
[2022-02-20 18:38] LABS: B Type Natriuretic Peptide 21 pg/mL (<100)
[2022-02-20 18:43] LABS: COVID-19 Test Negative (Negative); IDNOW Serial# 55D5AD1C; IDNOW Serial# 6674DD1D; Influenza A Negative (Negative); Influenza B2 Negative (Negative); Troponin-I High Sensitivity < 3.5 ng/L (<3.5-35.0)
--- NOTE | 2022-02-20 18:46 | PC.NURSE ---
61 y/o M referred from PCP office with elevated CO2 labs and fatigue. hx of CHF, ?CHF exacerbation. 18G IV in place, labs drawn and sent, covid swab sent, bcx sent, IV medication given as well as IV abx. pt resting comfortably. VSS
[2022-02-20 19:19] VITALS: BP 147/83; PULSE 102; RESP 18; TEMP 36.7; O2SAT 97
--- NOTE | 2022-02-20 20:11 | PC.NURSE ---
Patient is alert and oriented x3. Denies to be in pain. Vitals are stable, no signs of resp distress. Patient is resting comfortable with the call johnson in reach. by the bed side. Safety maintained.
[2022-02-20 20:13] LABS: Reflex Lactate? Lactic Acid Added
[2022-02-20 20:57] LABS: ~Lactic Acid-LAB USE ONLY 2.7 mmol/L (0.5-2.0)
[2022-02-20 21:14] VITALS: O2SAT 94
[2022-02-20] MEDS: Azithromycin 500 MG TABLET PO (21:14)
[2022-02-20 21:15] VITALS: BP 108/66; PULSE 85; RESP 18; O2SAT 93
[2022-02-20 21:36] LABS: ABG Base Excess -2.2 mmol/L; ABG HCO3 20 mmol/L (22-26); ABG pCO2 30 mmHg (32-45); ABG pH 7.43 (7.35-7.45); ABG pO2 84 mmHg (83-108)
--- NOTE | 2022-02-20 21:36 | PHA.MEDREC ---
Pharmacy Consult ? Medication Reconciliation Pharmacy has completed the medication reconciliation.
[2022-02-20 21:49] LABS: ABG Refer to POC result
--- NOTE | 2022-02-20 21:49 | PM.IMHP ---
History of Present Illness Date of Service: 02/20/22 Chief Complaint: Dyspnea This is a 61-year-old male with pertinent history of chronic hypoxemic respiratory failure secondary to COPD, essential hypertension, gastroesophageal reflux disease, mood disorder who presents to the emergency department for evaluation of dyspnea. Patient was seen at Dr. Alejandro office today and was sent to the ER for further evaluation. Patient states for the last 5-6 days he has been having dyspnea, worse with exertion. Also has associated productive cough, chills. Also noticed wheezing which has not relieved with his home inhalers. No sick contacts. Patient denies chest discomfort, palpitations, abdominal pain, nausea, vomiting, changes in urinary or bowel habits. Also has been having increased drowsiness and fatigability in the emergency department, imaging concerning for right-sided pneumonia. Patient was initially hypercapnic which improved with IV steroids Review of Systems Constitutional: Constitutional: Reports chills, Reports fatigue and Reports malaise Cardiovascular: Cardiovascular: Reports no additional cardiovascular complaints and Reports dyspnea on exertion Respiratory: Respiratory: Reports cough, Reports dyspnea on exertion and Reports wheezing Gastrointestinal: Gastrointestinal: Reports no additional gastrointestinal complaints Genitourinary: Genitourinary: Reports no additional male genitourinary complaints Endocrine: Endocrine: Reports fatigue Allergic/Immunologic: Allergic/Immunologic: Reports wheezing [facility] Medical History Altered mental state Asbestos exposure COPD (chronic obstructive pulmonary disease) Dyspnea ILD (interstitial lung disease) Nasal septal perforation GEOVANNI (obstructive sleep apnea) Pertinent family history: no family history of CAD Social History Patient Tobacco Use Status: Never used Tobacco Advance Directives: No Advance Directives Information Provided: Yes Meds Allergies Allergy/AdvReac Type Severity Reaction Status Date / Time No Known Allergies Allergy Verified 02/20/22 09:27 Active Medications: Current Medications Acetaminophen (Acetaminophen 325 Mg Tablet) 650 mg PO Q6H PRN PRN Reason: Pain, Mild (Pain Scale 1-3) Albuterol Sulfate 2.5 mg/ (Ipratropium Smock 0.5 mg) 0 mg INHALE RQ4H WHILE AWAKE STEFFANY Albuterol Sulfate 2.5 mg/ (Ipratropium Smock 0.5 mg) 0 mg INHALE RQ4H WHILE AWAKE PRN PRN Reason: Wheezing Enoxaparin Sodium (Enoxaparin Sodium 40 Mg/0.4 Ml Syringe) 40 mg SUBCUT Q24H STEFFANY Melatonin (Melatonin 3 Mg Tablet) 6 mg PO BEDTIME PRN PRN Reason: Insomnia Methylprednisolone Sodium Succinate (Methylprednisolone Sod Succ 40 Mg/Ml Vial) 40 mg IVPUSH Q12H STEFFANY Ondansetron HCl (Ondansetron Hcl 4 Mg/2 Ml Vial) 4 mg IVPUSH Q8H PRN PRN Reason: Nausea and Vomiting Pharmacy Consult (Consult Rx Perform Med Rec) 1 each MISCELLANE ONCE PRN PRN Reason: Consult order Sodium Chloride (0.9 % Sodium Chloride Flush 3 Ml Syringe) 3 ml IVFLUSH QSHIFT [facility] Home Medications Medication Instructions Recorded Confirmed Last Taken Type albuterol sulfate 90 mcg/actuation 90 mcg inhalation Q4H PRN Wheezing 10/07/21 02/20/22 Unknown History aerosol inhaler furosemide 40 mg tablet 40 mg PO BID 10/07/21 02/20/22 Unknown History gabapentin 300 mg capsule 300 mg PO TID 10/07/21 02/20/22 Unknown History omeprazole 40 mg capsule,delayed 40 mg PO DAILY@0630 10/07/21 02/20/22 Unknown History release spironolactone 50 mg tablet 50 mg PO DAILY 10/07/21 02/20/22 Unknown History fluticasone propionate 50 2 spray intranasal DAILY PRN 02/20/22 02/20/22 Unknown History mcg/actuation nasal Congestion spray,suspension lactulose 10 gram/15 mL oral 15 ml PO TID PRN Constipation 02/20/22 02/20/22 02/20/22 History solution multivitamin 1 tab PO DAILY 02/20/22 02/20/22 Unknown History venlafaxine 75 mg capsule,extended 1 cap PO DAILY 02/20/22 02/20/22 Unknown History release 24 hr Physical Exam Vital Signs and Narrative: Vital Signs: Last Vital Signs Temp 98.1 F 02/20/22 19:19 Pulse 85 02/20/22 21:15 Resp 18 02/20/22 21:15 BP 108/66 02/20/22 21:15 Pulse Ox 93 02/20/22 21:15 O2 Del Method 02/20/22 21:15 BMI result Body Mass Index 32.8 Middle-aged male lying in bed in mild distress Neck supple, no JVD Regular rate and rhythm, S1-S2 heard Right-sided crackles with bilateral wheezing Abdomen soft nontender, no guarding, no rigidity Patient is awake, alert and oriented to self, place, time and person ; no focal motor deficit Psych: Normal mood No pedal edema Results Labs 02/20/22 18:03 02/20/22 18:02 Labs: Laboratory Results - last 24 hr 02/20/22 02/20/22 02/20/22 18:02 18:02 18:02 MCV MCH MCHC RDW Plt Count MPV Immature Gran % (Auto) Neut % (Auto) Lymph % (Auto) Simpson % (Auto) Eos % (Auto) Baso % (Auto) Lymph # (Auto) Simpson # (Auto) Eos # (Auto) Baso # (Auto) Abs Immat Gran (auto) Absolute Neuts (auto) Absolute Nucleated RBC Nucleated RBC % (auto) O2 Saturation ABG pH at Pt Temp ABG pCO2 at Pt Temp ABG pO2 at Pt Temp ABG HCO3 ABG Base Excess (Actual) Anion Gap 15 Estim Creat Clear Calc 97.8 Estimated GFR > 60 Random Glucose 91 Lactic Acid Lactic Acid F/U @ 2Hr Calcium 9.8 Magnesium 2.0 Total Bilirubin 0.5 AST 26 ALT 20 Alkaline Phosphatase 103 Troponin I High Sens B-Natriuretic Peptide Total Protein 8.5 H Albumin 4.0 COVID-19 (RONEY) Negative COVID-19 Clin Com See Note Influenza Type A (EVELYN) Negative Influenza Type B (EVELYN) Negative Influenza A & B Note See Note 02/20/22 02/20/22 02/20/22 18:02 18:02 18:02 MCV MCH MCHC RDW Plt Count MPV Immature Gran % (Auto) Neut % (Auto) Lymph % (Auto) Simpson % (Auto) Eos % (Auto) Baso % (Auto) Lymph # (Auto) Simpson # (Auto) Eos # (Auto) Baso # (Auto) Abs Immat Gran (auto) Absolute Neuts (auto) Absolute Nucleated RBC Nucleated RBC % (auto) O2 Saturation ABG pH at Pt Temp ABG pCO2 at Pt Temp ABG pO2 at Pt Temp ABG HCO3 ABG Base Excess (Actual) Anion Gap Estim Creat Clear Calc Estimated GFR Random Glucose Lactic Acid 2.5 H* Lactic Acid F/U @ 2Hr Calcium Magnesium Total Bilirubin AST ALT Alkaline Phosphatase Troponin I High Sens < 3.5 B-Natriuretic Peptide 21 Total Protein Albumin COVID-19 (RONEY) COVID-19 Clin Com Influenza Type A (EVELYN) Influenza Type B (EVELYN) Influenza A & B Note 02/20/22 02/20/22 02/20/22 18:03 20:23 21:29 MCV 91.6 MCH 29.5 MCHC 32.2 RDW 13.2 Plt Count 163 MPV 9.9 Immature Gran % (Auto) 0.2 Neut % (Auto) 66.8 Lymph % (Auto) 24.0 Simpson % (Auto) 5.6 Eos % (Auto) 3.0 Baso % (Auto) 0.4 Lymph # (Auto) 1.9 Simpson # (Auto) 0.5 Eos # (Auto) 0.2 Baso # (Auto) 0.0 Abs Immat Gran (auto) 0.02 Absolute Neuts (auto) 5.4 Absolute Nucleated RBC 0.000 Nucleated RBC % (auto) 0.0 O2 Saturation 96.0 ABG pH at Pt Temp 7.43 ABG pCO2 at Pt Temp 30 L ABG pO2 at Pt Temp 84 ABG HCO3 20 L ABG Base Excess (Actual) -2.2 Anion Gap Estim Creat Clear Calc Estimated GFR Random Glucose Lactic Acid Lactic Acid F/U @ 2Hr 2.7 H* Calcium Magnesium Total Bilirubin AST ALT Alkaline Phosphatase Troponin I High Sens B-Natriuretic Peptide Total Protein Albumin COVID-19 (RONEY) COVID-19 Clin Com Influenza Type A (EVELYN) Influenza Type B (EVELYN) Influenza A & B Note Imaging Radiologist's Impressions: Impressions Chest CT 02/20/22 17:55 IMPRESSION: 1. Multifocal groundglass opacities with interstitial prominence extensively in bilateral lungs, with more prominent changes in the right middle lobe inferiorly, in the right lower lobe. Differential consideration include infectious, inflammatory etiologies... This pattern can be seen with Covid disease, clinically correlate. Recommend follow-up imaging to ensure resolution of these findings. 2. Slightly lobulated contour of the liver. Splenomegaly. Clinically correlate. Further evaluation with follow-up ultrasound, CT without contrast as clinically warranted. 3. Severe right shoulder arthritis. Fleischner guidelines were followed. Assessment and Plan (1) Acute respiratory failure with hypoxia and hypercarbia: Status: Acute (2) Pneumonia: Status: Acute (3) COPD (chronic obstructive pulmonary disease): Status: Acute Plan This is a 61-year-old male with pertinent history of chronic hypoxemic respiratory failure secondary to COPD, essential hypertension, gastroesophageal reflux disease, mood disorder who presents to the emergency department for evaluation of dyspnea. #. Acute on chronic hypoxemic hypercapnic respiratory failure due to #. Right sided (community-acquired) pneumonia leading to COPD exacerbation. Ambulatory hypoxemia noted in the ER. Patient on baseline nighttime 2 L supplemental oxygen. Initial respiratory acidosis on VBG resolved with IV steroids. Continue empiric IV antibiotics for CAP. Continue systemic steroids and scheduled and p.r.n. DuoNebs. Sputum cultures and blood cultures pending #. lactic acidosis due to hypoxemia. No sepsis #. essential hypertension: Continue p.o. antihypertensives #. gastroesophageal reflux disease: On PPI DVT prophylaxis: Lovenox 40 mg daily Diet: Cardiac diet Full code Admit as inpatient and will require two night minimum hospital stay for IV antibiotics Time Spent With Patient Time: Total time managing care of this patient today ____ minutes. Quality Stroke Does the patient have a stroke diagnosis?: No VTE Prior VTE?: No VTE Risk Level:: Medical - moderate - high VTE Device Contraindication: Treatment Not Indicated VTE Drug Contraindication: N/A - Med Ordered
[2022-02-20 22:13] VITALS: BP 108/63; PULSE 87; RESP 18; TEMP 36.8; O2SAT 95
[2022-02-20] MEDS: Enoxaparin Sodium 40 MG/0.4 ML SYRINGE SUBCUT (22:15)
[2022-02-20 22:31] LABS: Reflex Lactate? 2 Y
[2022-02-20 23:30] LABS: ~Lactic Acid-LAB USE ONLY 4.1 mmol/L (0.5-2.0)
--- NOTE | 2022-02-20 23:37 | PC.NURSE ---
Patient is alert and oriented x4. Denies to be in plain. Resting peacefully, vitals are stable. Report was given to the nurse Al. Lab called to report critical results on lactic acid. Al the nurse is aware of that. Patient is not in resp distress, safety maintained.
[2022-02-21] VITALS (8 sets, daily range): BP systolic 113–138; BP diastolic 59–73; PULSE 79–95; RESP 16–18; TEMP 36.4–37.1; O2SAT 94–99; BMI 31.4
[2022-02-21] MEDS: 0.9 % Sodium Chloride 1,000 ML 999 ML IV (00:31)
[2022-02-21] MEDS: Benzonatate 100 MG CAPSULE 200 MG PO (00:39)
[2022-02-21] MEDS: Omeprazole 40 MG CAPSULE.DR PO (05:33)
[2022-02-21 05:58] LABS: Mean Corpuscular Hemoglobin 29.2 pg (27.0-33.0); PLT CLUMP 1; SCAN SMEAR FLAG 1
[2022-02-21 06:00] LABS: Hematocrit 44.7 % (42.0-52.0); Hemoglobin 14.8 g/dl (14.0-18.0); Imm Gran Abs Auto 0.02 X10*3/uL (0.00-0.03); Imm Gran Pct Auto 0.3 % (0.0-0.4); Lymphocytes Absolute Auto 0.5 X10*3/uL (1.2-4.9); Lymphocytes Percent Auto 6.2 % (20-40); MANUAL DIFF FLAG SCAN; Mean Corpuscular HGB Conc 33.1 g/dl (31.0-36.0); Mean Corpuscular Volume 88.3 fL (80.0-98.0); Mean Platelet Volume 9.9 fL (9.4-12.4); Monocytes Absolute Auto 0.2 X10*3/uL (0.1-1.2); Monocytes Percent Auto 2.3 % (2-11); Neutrophils Absolute Auto 7.1 x10*3/uL (2.0-8.3); Neutrophils Percent Auto 91.2 % (45-73); Red Blood Count 5.06 X10*6/uL (4.60-5.80); Red Cell Distribution Width 12.9 % (11.0-16.0)
[2022-02-21 06:02] LABS: Platelet Count 138 X10*3/uL (160-400); White Blood Count 7.8 X10*3/uL (4.8-10.8)
[2022-02-21 06:14] LABS: Anion Gap 13 (12-20); Blood Urea Nitrogen 12 mg/dL (9-16); Calcium 9.6 mg/dL (8.4-10.2); Carbon Dioxide 20 mmol/L (22-29); Chloride 106 mmol/L (96-108); Creatinine Clr Calc Pharmacy 99.1; Estimated Glomerular Filt Rate > 60; Glucose Random 184 mg/dL (60-115); Potassium 4.1 mmol/L (3.3-5.1); Sodium 135 mmol/L (135-145)
[2022-02-21 06:17] LABS: SLIDE REVIEW VERIFIED
[2022-02-21 06:32] LABS: Lactic Acid 2.4 mmol/L (0.5-2.0)
[2022-02-21 07:55] LABS: Reflex Lactate? Lactic Acid Added
[2022-02-21 08:31] LABS: ~Lactic Acid-LAB USE ONLY 2.2 mmol/L (0.5-2.0)
[2022-02-21] MEDS: Furosemide 40 MG TABLET PO ×2 (08:53→17:21)
[2022-02-21] MEDS: Gabapentin 300 MG CAPSULE PO ×3 (08:53→22:32)
[2022-02-21] MEDS: Spironolactone 25 MG TABLET 50 MG PO (08:53)
[2022-02-21] MEDS: methylPREDNISolone Sod Succ 40 MG/ML VIAL IVPUSH ×2 (08:53→22:29)
[2022-02-21] MEDS: 0.9 % Sodium Chloride Flush 3 ML SYRINGE IVFLUSH ×2 (08:54→15:07)
--- NOTE | 2022-02-21 09:17 | P.PNIM_ITS ---
Subjective Subjective Date of Service: 02/21/22 Interval History: Seen in follow-up for pneumonia with acute hypoxemic respiratory failure Interval history: No complaints except for nonproductive cough. Denies any shortness of breath, wheezing, chest pain Review of Systems General: No fevers, malaise, unintentional weight loss HEENT: No sore throat, nasal congestion, rhinorrhea, sinus pain, ear pain Cardiovascular: No chest pain, palpitations, or leg edema Respiratory: +cough. No shortness of breath, wheezing GI: No abdominal pain, nausea, vomiting, diarrhea MSK: No myalgia, back pain Neuro: No headaches, weakness, paresthesias Skin: No rashes or lesions Physical Exam Vital Signs: Vital Signs: Last Vital Signs Temp 97.6 F 02/21/22 08:00 Pulse 80 02/21/22 08:23 Resp 18 02/21/22 08:23 BP 132/73 02/21/22 08:00 Pulse Ox 99 02/21/22 08:00 O2 Del Method 02/21/22 08:00 BMI result Body Mass Index 31.4 Constitutional - Awake and Alert, No apparent distress Eyes - PERRLA, EOMI Cardiovascular - S1S2, RRR, No edema Respiratory - Normal lung expansion, Normal respiratory effort, No respiratory distress, rhonchi RML/RLL Gastrointestinal - NT / ND; +BS; No rebound or guarding Extremities - no calf tenderness bilaterally, no swelling Skin - Warm/Dry Neurological - Alert & oriented x3 Psychological - Appropriate affect Objective Data Active Medications Acetaminophen (Acetaminophen 325 Mg Tablet) 650 mg PO Q6H PRN PRN Reason: Pain, Mild (Pain Scale 1-3) Benzonatate (Benzonatate 100 Mg Capsule) 200 mg PO TID PRN PRN Reason: cough Last Admin: 02/21/22 00:39 Dose: 200 mg Documented By: THEE Albuterol Sulfate 2.5 mg/ (Ipratropium [place] 0.5 mg) 0 mg INHALE RQ4H WHILE AWAKE STEFFANY Last Admin: 02/21/22 08:19 Dose: 1 each Documented By: FLORESITA Albuterol Sulfate 2.5 mg/ (Ipratropium [place] 0.5 mg) 0 mg INHALE Q4H PRN PRN Reason: Wheezing Enoxaparin Sodium (Enoxaparin Sodium 40 Mg/0.4 Ml Syringe) 40 mg SUBCUT Q24H [facility] Last Admin: 02/20/22 22:15 Dose: 40 mg Documented By: ARTOCL Fluticasone Propionate (Fluticasone Propionate Nasal 16 Gm [place]) 2 spray NOSTRIL-B DAILY PRN PRN Reason: Congestion Furosemide (Furosemide 40 Mg Tablet) 40 mg PO BIDWM [facility]; Protocol Last Admin: 02/21/22 08:53 Dose: 40 mg Documented By: LILIANE Gabapentin (Gabapentin 300 Mg Capsule) 300 mg PO TID [facility] Last Admin: 02/21/22 08:53 Dose: 300 mg Documented By: LILIANE Azithromycin 500 mg/ Sodium (Chloride) 250 mls @ 125 mls/hr IV Q24H [facility] Ceftriaxone Sodium 1 gm/ (Sodium Chloride) 50 mls @ 100 mls/hr IV Q24H [facility] Lactulose (Lactulose 20 Gm/30 Ml Solution) 10 gm PO TID PRN PRN Reason: Constipation Melatonin (Melatonin 3 Mg Tablet) 6 mg PO BEDTIME PRN PRN Reason: Insomnia Methylprednisolone Sodium Succinate (Methylprednisolone Sod Succ 40 Mg/Ml Vial) 40 mg IVPUSH Q12H [facility] Last Admin: 02/21/22 08:53 Dose: 40 mg Documented By: LILIANE Non-Formulary Medication (Fluticasone Propion-Salmeterol [Airduo Respiclick]) 1 inhalation INHALE BID [facility] Omeprazole (Omeprazole 40 Mg Capsule.Dr) 40 mg PO DAILY@0630 [facility] Last Admin: 02/21/22 05:33 Dose: 40 mg Documented By: THEE Ondansetron HCl (Ondansetron Hcl 4 Mg/2 Ml Vial) 4 mg IVPUSH Q8H PRN PRN Reason: Nausea and Vomiting Pharmacy Consult (Consult Rx Perform Med Rec) 1 each MISCELLANE ONCE PRN PRN Reason: Consult order Sodium Chloride (0.9 % Sodium Chloride Flush 3 Ml Syringe) 3 ml IVFLUSH QSHIFT [facility] Last Admin: 02/21/22 08:54 Dose: 3 ml Documented By: LILIANE Spironolactone (Spironolactone 25 Mg Tablet) 50 mg PO DAILY [facility]; Protocol Last Admin: 02/21/22 08:53 Dose: 50 mg Documented By: LILIANE Labs 02/21/22 05:51 02/21/22 05:51 Labs: Laboratory Results - last 24 hr 02/20/22 02/20/22 02/20/22 18:02 18:02 18:02 MCV MCH MCHC RDW Plt Count MPV Immature Gran % (Auto) Neut % (Auto) Lymph % (Auto) George % (Auto) Eos % (Auto) Baso % (Auto) Lymph # (Auto) George # (Auto) Eos # (Auto) Baso # (Auto) Abs Immat Gran (auto) Absolute Neuts (auto) Absolute Nucleated RBC Nucleated RBC % (auto) Smear Tech's Comments O2 Saturation ABG pH at Pt Temp ABG pCO2 at Pt Temp ABG pO2 at Pt Temp ABG HCO3 ABG Base Excess (Actual) Anion Gap 15 Estim Creat Clear Calc 97.8 Estimated GFR > 60 Random Glucose 91 Lactic Acid Lactic Acid F/U @ 2Hr Lactic Acid F/U @ 4Hr Calcium 9.8 Magnesium 2.0 Total Bilirubin 0.5 AST 26 ALT 20 Alkaline Phosphatase 103 Troponin I High Sens B-Natriuretic Peptide Total Protein 8.5 H Albumin 4.0 COVID-19 (RONEY) Negative T-Quad 22ID-INVOLTA Com See Note Influenza Type A (EVELYN) Negative Influenza Type B (EVELYN) Negative Influenza A & B Note See Note 02/20/22 02/20/22 02/20/22 18:02 18:02 18:02 MCV MCH MCHC RDW Plt Count MPV Immature Gran % (Auto) Neut % (Auto) Lymph % (Auto) George % (Auto) Eos % (Auto) Baso % (Auto) Lymph # (Auto) George # (Auto) Eos # (Auto) Baso # (Auto) Abs Immat Gran (auto) Absolute Neuts (auto) Absolute Nucleated RBC Nucleated RBC % (auto) Smear Tech's Comments O2 Saturation ABG pH at Pt Temp ABG pCO2 at Pt Temp ABG pO2 at Pt Temp ABG HCO3 ABG Base Excess (Actual) Anion Gap Estim Creat Clear Calc Estimated GFR Random Glucose Lactic Acid 2.5 H* Lactic Acid F/U @ 2Hr Lactic Acid F/U @ 4Hr Calcium Magnesium Total Bilirubin AST ALT Alkaline Phosphatase Troponin I High Sens < 3.5 B-Natriuretic Peptide 21 Total Protein Albumin COVID-19 (RONEY) COVID-INVOLTA Com Influenza Type A (EVELYN) Influenza Type B (EVELYN) Influenza A & B Note 02/20/22 02/20/22 02/20/22 18:03 20:23 21:29 MCV 91.6 MCH 29.5 MCHC 32.2 RDW 13.2 Plt Count 163 MPV 9.9 Immature Gran % (Auto) 0.2 Neut % (Auto) 66.8 Lymph % (Auto) 24.0 George % (Auto) 5.6 Eos % (Auto) 3.0 Baso % (Auto) 0.4 Lymph # (Auto) 1.9 George # (Auto) 0.5 Eos # (Auto) 0.2 Baso # (Auto) 0.0 Abs Immat Gran (auto) 0.02 Absolute Neuts (auto) 5.4 Absolute Nucleated RBC 0.000 Nucleated RBC % (auto) 0.0 Smear Tech's Comments O2 Saturation 96.0 ABG pH at Pt Temp 7.43 ABG pCO2 at Pt Temp 30 L ABG pO2 at Pt Temp 84 ABG HCO3 20 L ABG Base Excess (Actual) -2.2 Anion Gap Estim Creat Clear Calc Estimated GFR Random Glucose Lactic Acid Lactic Acid F/U @ 2Hr 2.7 H* Lactic Acid F/U @ 4Hr Calcium Magnesium Total Bilirubin AST ALT Alkaline Phosphatase Troponin I High Sens B-Natriuretic Peptide Total Protein Albumin COVID-19 (RONEY) COVID-19 Clin Com Influenza Type A (EVELYN) Influenza Type B (EVELYN) Influenza A & B Note 02/20/22 02/21/22 02/21/22 22:50 05:51 05:51 MCV 88.3 MCH 29.2 MCHC 33.1 RDW 12.9 Plt Count 138 L MPV 9.9 Immature Gran % (Auto) 0.3 Neut % (Auto) 91.2 H Lymph % (Auto) 6.2 L George % (Auto) 2.3 Eos % (Auto) 0.0 Baso % (Auto) 0.0 Lymph # (Auto) 0.5 L George # (Auto) 0.2 Eos # (Auto) 0.0 Baso # (Auto) 0.0 Abs Immat Gran (auto) 0.02 Absolute Neuts (auto) 7.1 Absolute Nucleated RBC 0.000 Nucleated RBC % (auto) 0.0 Smear Tech's Comments VERIFIED O2 Saturation ABG pH at Pt Temp ABG pCO2 at Pt Temp ABG pO2 at Pt Temp ABG HCO3 ABG Base Excess (Actual) Anion Gap Estim Creat Clear Calc Estimated GFR Random Glucose Lactic Acid 2.4 H* Lactic Acid F/U @ 2Hr Lactic Acid F/U @ 4Hr 4.1 H* Calcium Magnesium Total Bilirubin AST ALT Alkaline Phosphatase Troponin I High Sens B-Natriuretic Peptide Total Protein Albumin COVID-19 (RONEY) COVID-19 Clin Com Influenza Type A (EVELYN) Influenza Type B (EVELYN) Influenza A & B Note 02/21/22 02/21/22 05:51 08:07 MCV MCH MCHC RDW Plt Count MPV Immature Gran % (Auto) Neut % (Auto) Lymph % (Auto) George % (Auto) Eos % (Auto) Baso % (Auto) Lymph # (Auto) George # (Auto) Eos # (Auto) Baso # (Auto) Abs Immat Gran (auto) Absolute Neuts (auto) Absolute Nucleated RBC Nucleated RBC % (auto) Smear Tech's Comments O2 Saturation ABG pH at Pt Temp ABG pCO2 at Pt Temp ABG pO2 at Pt Temp ABG HCO3 ABG Base Excess (Actual) Anion Gap 13 Estim Creat Clear Calc 99.1 Estimated GFR > 60 Random Glucose 184 H Lactic Acid Lactic Acid F/U @ 2Hr 2.2 H* Lactic Acid F/U @ 4Hr Calcium 9.6 Magnesium Total Bilirubin AST ALT Alkaline Phosphatase Troponin I High Sens B-Natriuretic Peptide Total Protein Albumin COVID-19 (RONEY) COVID-19 Clin Com Influenza Type A (EVELYN) Influenza Type B (EVELYN) Influenza A & B Note Assessment and Plan (1) Acute respiratory failure with hypoxia and hypercarbia: Status: Acute (2) Pneumonia: Status: Acute Plan This is a 61-year-old male with pertinent history of chronic hypoxemic respiratory failure secondary to COPD, asbestos exposure, essential hypertension, gastroesophageal reflux disease, mood disorder admitted for community-acquired pneumonia with acute on chronic hypoxemic respiratory failure. #Acute on chronic hypoxemic hypercapnic respiratory failure - secondary to community-acquired pneumonia, COPD exacerbation -on arrival, was in respiratory acidosis on VBG resolved with IV steroids -continue supplemental O2 to maintain oximetry 90-92% -on 2 L nocturnal supplemental O2 at home as well as CPAP -Treat pneumonia and COPD per below -continue CPAP at bedtime #Right sided (community-acquired) pneumonia -negative for COVID-19, influenza -Continue supplemental O2 as above -continue ceftriaxone azithromycin -sputum culture pending. Blood cultures pending # COPD exacerbation-secondary to pneumonia -IV Solu-Medrol -DuoNebs q.4h -albuterol p.r.n. -supplemental O2 as above # lactic acidosis due to hypoxemia- No sepsis #essential hypertension -Continue p.o. antihypertensives #gastroesophageal reflux disease -continue PPI DVT prophylaxis: Lovenox 40 mg daily Diet:? Cardiac diet Full code Pt requires ongoing inpt hospital stay for IV antibiotics for community-acquired pneumonia with acute on chronic hypoxemic hypercapnic respiratory failure with increase in supplemental O2 requirement Time spent in interview with patient, documentation of note, reviewing history and physical, chest x-ray, CBC, BMP, serologies, chest CT Time Spent With Patient Time: Total time managing care of this patient today 25 minutes. Quality Stroke Does the patient have a stroke diagnosis?: No VTE Prior VTE?: No VTE Risk Level:: Medical - moderate - high VTE Device Contraindication: Treatment Not Indicated VTE Drug Contraindication: N/A - Med Ordered
[2022-02-21 10:12] LABS: Reflex Lactate? 2 Y
[2022-02-21] MEDS: cefTRIAXone sodium 1 GM in 0.9 % Sodium Chloride 50 ML IV (17:21)
[2022-02-21] MEDS: Azithromycin 500 MG in 0.9 % Sodium Chloride 250 ML 125 MG IV (22:23)
[2022-02-21] MEDS: Enoxaparin Sodium 40 MG/0.4 ML SYRINGE SUBCUT (22:32)
[2022-02-22] MEDS: Melatonin 3 MG TABLET 6 MG PO (01:31)
[2022-02-22 04:00] VITALS: BP 119/71; PULSE 77; RESP 17; TEMP 36.4; O2SAT 94
[2022-02-22] MEDS: Omeprazole 40 MG CAPSULE.DR PO (05:31)
[2022-02-22 08:00] VITALS: BP 126/62; PULSE 80; RESP 17; TEMP 37.1; O2SAT 93
[2022-02-22] MEDS: Furosemide 40 MG TABLET PO (08:30)
[2022-02-22] MEDS: Spironolactone 25 MG TABLET 50 MG PO (08:30)
[2022-02-22] MEDS: Gabapentin 300 MG CAPSULE PO (08:30)
[2022-02-22] MEDS: 0.9 % Sodium Chloride Flush 3 ML SYRINGE IVFLUSH (08:31)
[2022-02-22] MEDS: methylPREDNISolone Sod Succ 40 MG/ML VIAL IVPUSH (08:31)
[2022-02-22] MEDS: Fluticasone/Vilanterol 100/25 BLST.W.DEV 1 PUFF INHALE (08:52)
[2022-02-22 08:55] VITALS: PULSE 84; RESP 18; O2SAT 93
--- NOTE | 2022-02-22 10:07 | P.DS_ITS ---
DS: Providers Provider Date of Service: 02/22/22 Date of admission: 02/20/22 21:45 Date of discharge: 02/22/22 Primary care physician: Le Lima MD Attending physician on admission: Lopez Wright Attending physician on discharge: Gemma Johnson Discharging clinician: Digna Lennon DS: Diagnosis Discharge Diagnosis (1) Acute respiratory failure with hypoxia and hypercarbia: Status: Acute (2) Pneumonia: Status: Acute DS: Summary Hospital Course Hospital Course: HPI on admission 02/20/[address] Wright: This is a 61-year-old male with pertinent history of chronic hypoxemic respiratory failure secondary to COPD, essential hypertension, gastroesophageal reflux disease, mood disorder who presents to the emergency department for evaluation of dyspnea.? Patient was seen? at Dr. Alejandro office today and was sent to the ER for further evaluation.? Patient states for the last 5-6 days he has been having dyspnea, worse with exertion.? Also has associated productive cough, chills.? Also noticed wheezing which has not relieved with his home inhalers.? No sick contacts.? Patient denies chest discomfort, palpitations, abdominal pain, nausea, vomiting, changes in urinary or bowel habits.? Also has been having increased drowsiness and fatigability ?in the emergency department, imaging concerning for right-sided pneumonia.? Patient was initially hypercapnic which improved with IV steroids Hospital Course: Hospital course uneventful. Pt admitted for acute on chronic hypercarbic respiratory failure with nocturnal hypoxemia on 2L supplemental O2 nightly at baseline with CPAP, referred to ED by psychiatric social worker for abnormal VGB results. Treated for multifocal pneumonia. No increased supplemental O2 requirement. Treated with IV ceftriaxone and azithromycin as well as IV steroids. Will be discharged with augmentin BID x5 days, azithromycin 250mg daily x4 days, and 40mg prednisone x 3 days. Follow up with PCP and Dr. Alejandro. #Acute on chronic hypoxemic hypercapnic respiratory failure - secondary to community-acquired pneumonia, COPD exacerbation- resolved -on arrival, was in respiratory acidosis on VBG 7.28/63/35/30 resolved with IV steroid. Follow up ABG 7.43/30//84/20/-2.2 -No acute hypoxemia requiring supplemental O2 -Continued baseline 2 L nocturnal supplemental O2 as well as CPAP -Treat pneumonia and COPD below #Right sided (community-acquired) pneumonia- resolving -Chest CT noted multifocal groundglass opacities with interstitial prominence extensively b/l, greatest in RML/RLL -negative for COVID-19, influenza -Treated with ceftriaxone azithromycin -Blood cultures preliminary result negative -D/c with augmentin and azithromycin as above. Follow up CXR in 6 weeks with pcp. # COPD exacerbation-secondary to pneumonia- resolved -History of asbestos exposure -Treated with IV solumedrol, duonebs. -D/c with prednisone as above. Continue maintenance inhalers, albuterol prn # lactic acidosis due to hypoxemia- No sepsis #essential hypertension -Treated with home antihypertensives with reasonable control #gastroesophageal reflux disease -treated with ppi Time Spent with Patient Time attestation: Total time managing care of this patient today ____ minutes. Discharge coordination time: Greater than 30 minutes Quality: Safe Use of Opioids Does Pt have an Active Cancer Diagnosis on the Problem List?: No Quality: Stroke Does the patient have a stroke diagnosis?: No Physical Exam Vital Signs: Vital Signs: Last Vital Signs Temp 98.7 F 02/22/22 08:00 Pulse 84 02/22/22 08:55 Resp 18 02/22/22 08:55 BP 126/62 02/22/22 08:00 Pulse Ox 93 02/22/22 08:00 O2 Del Method 02/22/22 08:00 BMI result Body Mass Index 31.4 DS: Data Data Completed and Pending Labs on day of discharge: Laboratory Results - last 24 hr 02/21/22 10:23 Lactic Acid F/U @ 4Hr 3.0 H* Preliminary micro results at discharge 02/20/22 18:02 Blood Culture - Preliminary Blood - Venous No growth after 24 hours. 02/20/22 18:02 Blood Culture - Preliminary Blood - Venous No growth after 24 hours. Discharge Plan Discharge Anticipated Discharge Date/Time: 02/22/22 09:44 Patient Disposition: Home, Self-Care Discharge Diagnosis: Pneumonia, COPD exacerbation Referrals: Le Lima MD [Primary Care Provider] - 1 Week Discharge Medications: New amoxicillin-pot clavulanate 875-125 mg tablet 1 tab PO BID Qty: 10 0RF azithromycin 250 mg tablet 250 mg PO BEDTIME 6 Days Qty: 4 0RF prednisone 20 mg tablet 40 mg PO DAILY Qty: 6 0RF Continued venlafaxine 75 mg capsule,extended release 24hr 1 cap PO DAILY lactulose 10 gram/15 mL solution 15 ml PO TID PRN (Reason: Constipation) fluticasone propionate 50 mcg/actuation spray,suspension 2 spray intranasal DAILY PRN (Reason: Congestion) multivitamin Tablet 1 tab PO DAILY gabapentin 300 mg capsule 300 mg PO TID omeprazole 40 mg capsule,delayed release(DR/EC) 40 mg PO DAILY@0630 furosemide 40 mg tablet 40 mg PO BID spironolactone 50 mg tablet 50 mg PO DAILY albuterol sulfate 90 mcg/actuation HFA aerosol inhaler 90 mcg inhalation Q4H PRN (Reason: Wheezing) fluticasone propion-salmeterol [AirDuo RespiClick] 113-14 mcg/actuation aerosol powdr breath activated 1 inh inhalation BID Qty: 1 11RF Discontinued prednisone 20 mg tablet See Rx Instructions PO DAILY 10 Days Qty: 15 0RF Rx Instructions: PO daily; Take 2 tabs daily x 5 days, then 1 tablet daily x 5 days Diet: Regular diet Activity on Discharge: As tolerated Stand Alone Forms: Patient Portal Discharge page Care Plan Goals: Continue treatment of community acquired pneumonia Continue treatment for COPD excaerbation Health Concerns: Community acquired pneumonia and COPD exacerbation with acute on chronic hypoxemic respiratory failure Plan of Treatment: Community acquired pneumonia -Your chest CT showed Mulifocal pneumonia. Covid and influenza testing negative -You were treated with IV ceftriaxone and azithromycin. You were successfully weaned off oxygen back to your baseline -You should complete outpatient course of antibiotics without skipping any doses: Take augmentin 875mg twice daily x 10 doses (next dose due around 7pm) and azithromycin 250mg daily x 4 doses (next dose due around 7pm) -Follow up with PCP soon. Recommend repeat chest xray in 5-6 weeks to ensure full resolution of pneumonia COPD exacerbation- secondary to pneumonia -Treated with IV steroids. Continue 40mg (2 tabs 20mg) daily x 3 days (next dose due tomorrow am 02/23) -Continue home inhalers and albuterol prn -Follow up with Dr. Alejandro Assessment: As above Incidental finding on chest CT: Slightly abnormal appearance of the liver. Your liver enzymes in your blood work are all normal. Recommend following up with your PCP regarding results given your history of substance use and cirrhosis with your PCP and possibly a follow up ultrasound of the liver at the discretion of PCP.
[2022-02-22 12:14] VITALS: PULSE 84; RESP 18; O2SAT 94
--- NOTE | 2022-02-22 12:27 | MHC.CM.PN ---
PT REPORTS HE LIVES WITH HIS AND IS INDEPENDENT WITH CARE HE REPORTS HE HAS NO SERVICES HE HAS A CPAP AND HOME O2, HE REPORTS HE USES BOTH AT NIGHT ONLY HE REPORTS HIS IS HIS HCP, COPY REQUESTED HE IS KACI ELIZABETH PCP: GUADALUPE CLEMENT IMM DELIVERED PT WILL DC HOME TODAY WITH NO SERVICES FAMILY TO TRANSPORT
== END 2022-02-22 14:08 | disposition home or self-care (01) | DRG 194 ==
LOC: HO.ED 21:17 → HO.EDOVER 21:49 → HO.S3 22:35
PROVIDERS: Nurse Practitioner Family; Admitting Provider Student in an Organized Health Care Education/Training Program; Emergency Provider Emergency Medicine; PCP Internal Medicine; Visit Provider Physician Assistant
DX: J18.9 Pneumonia, unspecified organism (principal); E87.20 Acidosis, unspecified; J44.0 Chronic obstructive pulmonary disease with (acute) lower respiratory infection; J44.1 Chronic obstructive pulmonary disease with (acute) exacerbation; I10 Essential (primary) hypertension; G47.33 Obstructive sleep apnea (adult) (pediatric); Z20.822 Contact with and (suspected) exposure to COVID-19; Z79.51 Long term (current) use of inhaled steroids; Z79.899 Other long term (current) drug therapy
CPT/HCPCS: 36415; 71250; 80048; 80053; 82803; 83605; 83735; 83880; 84484; 85025; 87040; 87502; 87635; 93005; 94640; 94660; 96365; 96375; 99285; J0456; J0696; J1650; J1940; J2920; J2930

== ENCOUNTER → 2022-03-30 14:49 | Outpatient (BNVA) | payer MEDICARE, SELFPAY | PROVIDERS: PCP Internal Medicine; Visit Provider Hospitalist | DX: J84.9 Interstitial pulmonary disease, unspecified (principal); J44.9 Chronic obstructive pulmonary disease, unspecified; R06.00 Dyspnea, unspecified; J34.89 Other specified disorders of nose and nasal sinuses; J18.9 Pneumonia, unspecified organism; G47.33 Obstructive sleep apnea (adult) (pediatric); Z77.090 Contact with and (suspected) exposure to asbestos | CPT/HCPCS: 99212 ==

== ENCOUNTER → 2022-07-30 14:45 | Outpatient (BNVA) | payer MEDICARE, SELFPAY | PROVIDERS: PCP Internal Medicine; Visit Provider Hospitalist | DX: J84.9 Interstitial pulmonary disease, unspecified (principal); J44.9 Chronic obstructive pulmonary disease, unspecified; J34.89 Other specified disorders of nose and nasal sinuses; J18.9 Pneumonia, unspecified organism; R06.00 Dyspnea, unspecified; G47.33 Obstructive sleep apnea (adult) (pediatric); Z77.090 Contact with and (suspected) exposure to asbestos | CPT/HCPCS: 99212 ==

== ENCOUNTER → 2022-08-30 20:30 | Outpatient (REF) | payer MEDICARE, SELFPAY | LOC: HO.SL 20:30 | PROVIDERS: PCP Internal Medicine; Visit Provider Hospitalist | DX: G47.33 Obstructive sleep apnea (adult) (pediatric) (principal); G47.34 Idiopathic sleep related nonobstructive alveolar hypoventilation | CPT/HCPCS: 95810 ==

== ENCOUNTER → 2022-08-30 20:30 | Outpatient (BNV) | payer MEDICARE, SELFPAY | PROVIDERS: PCP Internal Medicine; Visit Provider Psychiatry & Neurology Neurology | DX: G47.33 Obstructive sleep apnea (adult) (pediatric) (principal) | CPT/HCPCS: 95810 ==

== ENCOUNTER 2022-10-29 15:34 | Outpatient (AMB) | payer MEDICARE, SELFPAY ==
[2022-10-29 15:42] VITALS: PULSE 90; O2SAT 96; BMI 32.1
--- NOTE | 2022-10-29 15:42 | MHC.OFFVIS ---
Intake Vital Signs 10/29/22 15:42 Height 5 ft 7 in Weight 205 lb BMI 32.1 Pulse 90 Pulse Source Pulse Oximeter Pulse Oximetry (%) 96 Oxygen Delivery Method Room Air Intake Visit Reasons: Asthma Manager Product Management Required: No Allergies No Known Allergies Allergy (Verified 10/29/22 15:43) HPI HPI Comments History of Present Illness Details The patient is a 62-year-old gentleman with a known history of past substance abuse and alcohol use now with underlying liver cirrhosis and obstructive sleep apnea. The patient has been complaining worsening dyspnea on exertion moderate severity. In addition the patient does complaint of a cough at times productive in nature. Being a white phlegm. Denies any hemoptysis. He was evaluated at [facility] . Underwent pulmonary function studies in addition to a CT scan of the chest. We did personally review the report. the patient has evidence of interstitial lung disease primarily in the subpleural area as well as some areas of ground-glass opacities. The patient was placed on Trelegy. Although it is very expensive for him to pay and now he is not able to afford it. He did feel the Trelegy was helping some. The patient does sleep on a recliner. He states that he had diagnosis of sleep apnea. Reason the last few months he did undergo an [facility] We did review the report. This was a suboptimal study as the patient only slept about a couple hours and did not have any significant sleep apnea during those 2 hours. The patient did desaturate below 88% for about 9 minutes. Therefore the patient likely requires oxygen supplementation at nighttime. This will be checked with an overnight oximetry. In the future we can consider repeating this study. During the visit the patient was taken for a walking oximetry. He is currently healing from a wound in his lower extremity making it very difficult for him to ambulate. The patient did not qualify for oxygen with activity. 12/23/2021 the patient is here for pulmonary follow-up visit. The patient overall has been doing better. He is responding well to the inhaler. He is using as prescribed. Although, too expensive about 50 dollars a month. Will continue for now although will looking to more financially reasonable with her options in the near future. In addition to that he did start the oxygen at nighttime. The oxygen therapy has been affecting beneficial. The patient is still struggling with the CPAP. he does try to use it. The CPAP therapy is affecting beneficial. He should be using it every night more than 4 hours a night. The patient will return in about 3-4 months and undergo pulmonary function studies. Depending of the results we can consider additional evaluation specially for hepatopulmonary conditions. 02/20/2022 the patient has a telephone visit today due to the patient's she is worsening respiratory symptoms. He has been complaining of cough and shortness of breath. Moderate severity. His also was noticed that he has been more tired and sleeping more. The patient does have liver cirrhosis in addition to his COPD. Therefore she was sent to get blood work. His ammonia level was within normal limits which is reassuring. Although his venous blood gas demonstrated hypercarbia with acute on chronic respiratory acidosis. Therefore, the patient was referred to the hospital. He was evaluated in the ER. There he had a CT scan of the chest demonstrating extensive ground-glass opacities he was admitted to the hospital briefly. 03/30/2022 the patient is here for pulmonary follow-up visit. He was last seen back in February where he was confuse and was hypercarbic. He did go to the ER where he had a ABG done demonstrating resolution of the hypercarbia. His lactic acid was indeed elevated and the patient did have a CT scan consistent with ill-defined hazy opacities throughout which may have been due to an atypical type of pneumonia. He was treated with antibiotics and the patient clinically is feeling better from a respiratory status. However, he has noticed significant lower extremity edema. He has been using his Lasix. His scan a few lb. He did go to a [employer] party and they did have a lot of snacks. Probably dietary indiscretion did take place during that time. Unfortunately he now has significant amount of fluid. He was going to go ahead and double up on the Lasix at least for the morning does from 40-80 for 3 days to see if this helps with his fluid status. He is also should be using the compression stockings and he can talk to his provider about Nathen bandage wraps. Patient has significant fluid. Does not appear to be infected at this time although he just finished a course of antibiotics. If his the redness comes back and his legs feel more warm. He can always call here but I will send him a course of doxycycline that he can start in the meantime. The 07/30/2022 the patient is here for a pulmonary follow-up visit. The patient overall is doing better. He had issues with depression and went back to drinking and therefore was admitted to [facility] psychiatrically and then went to rehab afterwards. That was tough for him. Although he is now working with a counselor and waiting for psychiatrist to try to get back to normal with that. He is using the CPAP at nighttime. He is also using the oxygen with. He is wondering if it needs to be adjusted. He is not getting supplies from any DME company and the patient is no longer active with any [employer] company. Therefore now that he also requires oxygen and has had issues with hypercarbia the patient needs to have an in-lab study to further address 1st of all his diagnosis of sleep apnea and then afterwards address the issue of if the patient benefits from BiPAP or IPAP to address his respiratory failure component. He continues with respiratory medicines and also has been and diuretics with good effect. The only issue is that the inhalers are expensive. I will switch him over to Symbicort in hopes that is a little bit better antunez and efficacy. The Will plan to continue the inhalers and will follow-up after the in-lab sleep study. 10/29/2022 the patient is here for a pulmonary follow-up visit. Overall the patient is doing a lot better. He brought in the CPAP and we were able to adjusted to the Pred pressure. He has been tolerating the new pressure is very well. I did request he can bring it to the next visit so we can download the machine. He does uses CPAP every night for more than 4 hours a night. Again the therapy has been affecting beneficial. In meantime he continues with his respiratory therap. the patient is still working with his alcohol. He recently went back to AA. In the meantime he was in the pool and he lacerated his left lower extremity. Now appears to be significantly inflamed erythematous indurated warm. This is consistent with cellulitis. Will go ahead and prescribed some antibiotics to make sure that it does not get worse. We did marked. The patient is aware that if the swelling gets worse he needs to seek urgent medical advice otherwise follow-up with his primary care. The patient returns will bring his machine in so we can download the data. [facility] Medical History (Updated 10/30/22 @ 00:14 by Ryne Alejandro MD) Nocturnal hypoxia Altered mental state Nasal septal perforation Asbestos exposure GEOVANNI (obstructive sleep apnea) Dyspnea ILD (interstitial lung disease) COPD (chronic obstructive pulmonary disease) Social History Household Members: Spouse Housing: House Patient Tobacco Use Status: Never used Tobacco Substance Use Type: Other service: No Current occupational status: retired Review of Systems Const Denies daytime sleepiness and Denies fatigue Eyes Denies change in vision ENT Denies change in voice, Reports nasal congestion and Reports nasal discharge Card Denies chest pain, Reports leg edema, Reports dyspnea on exertion and Reports paroxysmal nocturnal dyspnea Resp Reports chest congestion, Reports cough, Denies hemoptysis, Reports dyspnea on exertion and Denies wheezing GI Denies abdominal pain Musc Reports abnormal gait, Reports myalgias, Reports arthralgias and Reports joint swelling Skin/Breast Reports as per HPI Neuro Reports abnormal gait Endo Denies fatigue Ramana/Lymph Denies easy bleeding and Denies easy bruising Aller/Immun Denies wheezing Physical Exam Vital Signs: Last Vital Signs Pulse 90 10/29/22 15:42 Pulse Ox 96 10/29/22 15:42 Oxygen Delivery Method Room Air 10/29/22 15:42 BMI result Body Mass Index 32.1 Const General: comfortable HEENT Head: Yes normal to inspection General nose exam: Abnormal nasal septum present perforated Eyes General: appearance normal, both eyes and all related structures Sclerae: scleral abnormal bilateral Neck Neck: Yes supple Chest Chest palpation & inspection: normal inspection of the chest Resp Auscultation: no rhonchi, no wheezes and diminished lung sounds Cardio Rate: regular rate Rhythm: regular rhythm Heart sounds: S1 normal heart sound present and S2 normal heart sound present GI Inspection: Yes normal to inspection Skin General skin exam: no rashes or lesions noted Extrem General: No clubbing, No cyanosis and Yes edema Assessment & Plan Assessment & Plan (1) ILD (interstitial lung disease): Code(s): J84.9 - Interstitial pulmonary disease, unspecified (2) COPD (chronic obstructive pulmonary disease): Code(s): J44.9 - Chronic obstructive pulmonary disease, unspecified Qualifiers: COPD type: chronic bronchitis Chronic bronchitis type: simple Qualified Code(s): J41.0 - Simple chronic bronchitis (3) Dyspnea: Code(s): R06.00 - Dyspnea, unspecified Qualifiers: Dyspnea type: dyspnea on exertion Qualified Code(s): R06.09 - Other forms of dyspnea (4) GEOVANNI (obstructive sleep apnea): Code(s): G47.33 - Obstructive sleep apnea (adult) (pediatric) (5) Asbestos exposure: Code(s): Z77.090 - Contact with and (suspected) exposure to asbestos (6) Nasal septal perforation: Code(s): J34.89 - Other specified disorders of nose and nasal sinuses (7) Pneumonia: Comment: s/p treatment Code(s): J18.9 - Pneumonia, unspecified organism (8) Cellulitis: Code(s): L03.90 - Cellulitis, unspecified Qualifiers: Site of cellulitis: extremity Site of cellulitis of extremity: lower extremity Laterality: left Qualified Code(s): L03.116 - Cellulitis of left lower limb Plan Continue CPAP 13cm, need to download data next visit continue oxygen therapy NICOLE as needed continue symbiocrt start doxycycline for cellulitis F/U 6-8 months Medications: New doxycycline monohydrate 100 mg PO BID 14 days 28 tabs 0RF Coding Level of Care Code Est Pt Level 4 (97819) Diagnoses ILD (interstitial lung disease) J84.9 Simple chronic bronchitis J41.0 COPD type: chronic bronchitis Chronic bronchitis type: simple Dyspnea on exertion R06.09 Dyspnea type: dyspnea on exertion GEOVANNI (obstructive sleep apnea) G47.33 Asbestos exposure Z77.090 Nasal septal perforation J34.89 Pneumonia J18.9 Cellulitis of left lower extremity L03.116 Site of cellulitis: extremity Site of cellulitis of extremity: lower extremity Laterality: left Time Spent (min) 16
== END 2022-10-29 16:03 | disposition home or self-care (01) ==
PROVIDERS: PCP Internal Medicine; Visit Provider Hospitalist
DX: J84.9 Interstitial pulmonary disease, unspecified (principal); J41.0 Simple chronic bronchitis; G47.33 Obstructive sleep apnea (adult) (pediatric); Z77.090 Contact with and (suspected) exposure to asbestos; J34.89 Other specified disorders of nose and nasal sinuses; J18.9 Pneumonia, unspecified organism; L03.116 Cellulitis of left lower limb
CPT/HCPCS: 99214

== ENCOUNTER → 2022-10-29 15:34 | Outpatient (BNVA) | payer MEDICARE, SELFPAY | PROVIDERS: PCP Internal Medicine; Visit Provider Hospitalist | DX: J41.0 Simple chronic bronchitis (principal); J84.9 Interstitial pulmonary disease, unspecified; R06.09 Other forms of dyspnea; J34.89 Other specified disorders of nose and nasal sinuses; G47.33 Obstructive sleep apnea (adult) (pediatric); L03.116 Cellulitis of left lower limb; Z77.090 Contact with and (suspected) exposure to asbestos; Z99.89 Dependence on other enabling machines and devices | CPT/HCPCS: 99212 ==

== ENCOUNTER 2023-09-02 15:46 | Outpatient (AMB) | payer MEDICARE, OTHER, SELFPAY ==
[2023-09-02 15:48] VITALS: BP 122/67; PULSE 96; O2SAT 97; BMI 34.5
--- NOTE | 2023-09-02 15:48 | A.OFFVIS_ITS ---
Vital Signs 09/02/23 15:48 Height 5 ft 7 in Weight 220 lb BMI 34.5 BP 122/67 Blood Pressure Location Lt brachial Position Sitting Pulse 96 Pulse Source Doppler Pulse Oximetry (%) 97 Oxygen Delivery Method Room Air Intake Visit Reasons: Asthma Allergies No Known Allergies Allergy (Verified 10/29/22 15:43) HPI Comments Details: The patient is a 62-year-old gentleman with a known history of past substance abuse and alcohol use now with underlying liver cirrhosis and obstructive sleep apnea. The patient has been complaining worsening dyspnea on exertion moderate severity. In addition the patient does complaint of a cough at times productive in nature. Being a white phlegm. Denies any hemoptysis. He was evaluated at [address] . Underwent pulmonary function studies in addition to a CT scan of the chest. We did personally review the report. the patient has evidence of interstitial lung disease primarily in the subpleural area as well as some areas of ground-glass opacities. The patient was placed on Trelegy. Although it is very expensive for him to pay and now he is not able to afford it. He did feel the Trelegy was helping some. The patient does sleep on a recliner. He states that he had diagnosis of sleep apnea. Reason the last few months he did undergo an [facility] We did review the report. This was a suboptimal study as the patient only slept about a couple hours and did not have any significant sleep apnea during those 2 hours. The patient did desaturate below 88% for about 9 minutes. Therefore the patient likely requires oxygen supplementation at nighttime. This will be checked with an overnight oximetry. In the future we can consider repeating this study. During the visit the patient was taken for a walking oximetry. He is currently healing from a wound in his lower extremity making it very difficult for him to ambulate. The patient did not qualify for oxygen with activity. 12/23/2021 the patient is here for pulmonary follow-up visit. The patient overall has been doing better. He is responding well to the inhaler. He is using as prescribed. Although, too expensive about 50 dollars a month. Will continue for now although will looking to more financially reasonable with her options in the near future. In addition to that he did start the oxygen at nighttime. The oxygen therapy has been affecting beneficial. The patient is still struggling with the CPAP. he does try to use it. The CPAP therapy is affecting beneficial. He should be using it every night more than 4 hours a night. The patient will return in about 3-4 months and undergo pulmonary function studies. Depending of the results we can consider additional evaluation specially for hepatopulmonary conditions. 02/20/2022 the patient has a telephone visit today due to the patient's she is worsening respiratory symptoms. He has been complaining of cough and shortness of breath. Moderate severity. His also was noticed that he has been more tired and sleeping more. The patient does have liver cirrhosis in addition to his COPD. Therefore she was sent to get blood work. His ammonia level was within normal limits which is reassuring. Although his venous blood gas demonstrated hypercarbia with acute on chronic respiratory acidosis. Therefore, the patient was referred to the hospital. He was evaluated in the ER. There he had a CT scan of the chest demonstrating extensive ground-glass opacities he was admitted to the hospital briefly. 03/30/2022 the patient is here for pulmonary follow-up visit. He was last seen back in February where he was confuse and was hypercarbic. He did go to the ER where he had a ABG done demonstrating resolution of the hypercarbia. His lactic acid was indeed elevated and the patient did have a CT scan consistent with ill- defined hazy opacities throughout which may have been due to an atypical type of pneumonia. He was treated with antibiotics and the patient clinically is feeling better from a respiratory status. However, he has noticed significant lower extremity edema. He has been using his Lasix. His scan a few lb. He did go to a [employer] and they did have a lot of snacks. Probably dietary indiscretion did take place during that time. Unfortunately he now has signifi cant amount of fluid. He was going to go ahead and double up on the Lasix at least for the morning does from 40-80 for 3 days to see if this helps with his fluid status. He is also should be using the compression stockings and he can talk to his provider about Nathen bandage wraps. Patient has significant fluid. Does not appear to be infected at this time although he just finished a course of antibiotics. If his the redness comes back and his legs feel more warm. He can always call here but I will send him a course of doxycycline that he can start in the meantime. The 07/30/2022 the patient is here for a pulmonary follow-up visit. The patient overall is doing better. He had issues with depression and went back to drinking and therefore was admitted to [facility] psychiatrically and then went to rehab afterwards. That was tough for him. Although he is now working with a counselor and waiting for psychiatrist to try to get back to normal with that. He is using the CPAP at nighttime. He is also using the oxygen with. He is wondering if it needs to be adjusted. He is not getting supplies from any DME company and the patient is no longer active with any [employer] company. Therefore now that he also requires oxygen and has had issues with hypercarbia the patient needs to have an in-lab study to further address 1st of all his diagnosis of sleep apnea and then afterwards address the issue of if the patient benefits from BiPAP or IPAP to address his respiratory failure component. He continues with respiratory medicines and also has been and diuretics with good effect. The only issue is that the inhalers are expensive. I will switch him over to Symbicort in hopes that is a little bit better antunez and efficacy. The Will plan to continue the inhalers and will follow-up after the in-lab sleep study. 10/29/2022 the patient is here for a pulmonary follow-up visit. Overall the patient is doing a lot better. He brought in the CPAP and we were able to adju sted to the Pred pressure. He has been tolerating the new pressure is very well. I did request he can bring it to the next visit so we can download the machine. He does uses CPAP every night for more than 4 hours a night. Again the therapy has been affecting beneficial. In meantime he continues with his respiratory therap. the patient is still working with his alcohol. He recently went back to AA. In the meantime he was in the pool and he lacerated his left lower extremity. Now appears to be significantly inflamed erythematous indurated warm. This is consistent with cellulitis. Will go ahead and prescribed some antibiotics to make sure that it does not get worse. We did marked. The patient is aware that if the swelling gets worse he needs to seek urgent medical advice otherwise follow-up with his primary care. The patient returns springtime will bring his machine in so we can download the data. 09/02/2023 the patient is here for pulmonary follow-up visit. The patient ove rall fairly okay. He ran out of his inhalers therefore he has been short of breath. Make sure to send to the pharmacy. In addition to that we did look at his last CT scan from March 09 demonstrating pneumonitis. The patient will get a chest x-ray today. He also recently underwent an endoscopy and demonstrated that he does have esophageal varices. The patient did undergo banding. No evidence of any active bleeding. He is trying to be careful with his medication adherence. In addition to that he did get a new CPAP. The CPAP therapy 5 has been very affecting beneficial. Although he has not gotten to use the new machine as of yet since he has been too hot upstairs where he sleeps. He is going to start using it tonight however. He understands that if he does not use it it may be taken back. Therefore he needs use it more than 4 hours a night. Does use oxygen with it. Hopefully by using the CPAP regularly he will feel better during the daytime. His Maxwell score is still elevated at 11 over 24. The patient also will monitor closely his p.o. intake. He has 2 avoid anything was salt since he is having some lower extremity edema and also already have some portal hypertension. He does take diuretics for that. [facility] Medical History (Updated 10/30/22 @ 00:14 by Ryne Alejandro MD) Nocturnal hypoxia Altered mental state Nasal septal perforation Asbestos exposure GEOVANNI (obstructive sleep apnea) Dyspnea ILD (interstitial lung disease) COPD (chronic obstructive pulmonary disease) Social History Household Members: Spouse Housing: House Patient Tobacco Use Status: Never used Tobacco Substance Use Type: Other service: No Current occupational status: retired Review of Systems Const Reports daytime sleepiness and Denies fatigue Eyes Denies change in vision ENT Denies change in voice, Reports nasal congestion and Reports nasal discharge Card Denies chest pain, Reports leg edema, Reports dyspnea on exertion and Reports paroxysmal nocturnal dyspnea Resp Reports chest congestion, Reports cough, Denies hemoptysis, Reports dyspnea on exertion and Denies wheezing GI Denies abdominal pain Musc Reports abnormal gait, Reports myalgias, Reports arthralgias and Reports joint swelling Skin/Breast Reports as per HPI Neuro Reports abnormal gait Endo Denies fatigue Ramana/Lymph Denies easy bleeding and Denies easy bruising Aller/Immun Denies wheezing Physical Exam Vital Signs: Last Vital Signs Pulse 96 09/02/23 15:48 BP 122/67 09/02/23 15:48 Pulse Ox 97 09/02/23 15:48 Oxygen Delivery Method Room Air 09/02/23 15:48 BMI result Body Mass Index 34.5 Const General: comfortable HEENT Head: Yes normal to inspection General nose exam: Abnormal nasal septum present perforated Eyes General: appearance normal, both eyes and all related structures Sclerae: scleral abnormal bilateral Neck Neck: Yes supple Chest Chest palpation & inspection: normal inspection of the chest Resp Auscultation: no rhonchi, no wheezes and diminished lung sounds Cardio Rate: regular rate Rhythm: regular rhythm Heart sounds: S1 normal heart sound present and S2 normal heart sound present GI Inspection: Yes normal to inspection Skin General skin exam: no rashes or lesions noted Extrem General: No clubbing, No cyanosis and Yes edema Assessment & Plan Assessment & Plan (1) ILD (interstitial lung disease): Code(s): J84.9 - Interstitial pulmonary disease, unspecified Category: Medical (2) COPD (chronic obstructive pulmonary disease): Code(s): J44.9 - Chronic obstructive pulmonary disease, unspecified Category: Medical Qualifiers: COPD type: chronic bronchitis Chronic bronchitis type: simple Qualified Code(s): J41.0 - Simple chronic bronchitis (3) Dyspnea: Code(s): R06.00 - Dyspnea, unspecified Category: Medical Qualifiers: Dyspnea type: dyspnea on exertion Qualified Code(s): R06.09 - Other forms of dyspnea (4) GEOVANNI (obstructive sleep apnea): Code(s): G47.33 - Obstructive sleep apnea (adult) (pediatric) Category: Medical (5) Asbestos exposure: Code(s): Z77.090 - Contact with and (suspected) exposure to asbestos Category: Medical (6) Nasal septal perforation: Code(s): J34.89 - Other specified disorders of nose and nasal sinuses Category: Medical Plan Continue CPAP 13cm with 2L oxygenneed to download data next visit continue oxygen therapy NICOLE as needed continue symbiocrt diuresis as tolerated low Na diet CXR F/U 6-8 months Orders: Orders XR chest 2V Today J84.9 - Interstitial pulmonary disease, unspecified Medications: Changed From albuterol sulfate 90 mcg/actuation 90 mcg inhalation Q4H PRN Wheezing To albuterol sulfate 90 mcg/actuation 90 mcg inhalation Q4H PRN 8.5 grams 11RF Wheezing 30 days Refilled Symbicort 160-4.5 mcg/actuation (budesonide-formoterol) 2 puffs inhalation BID 10.2 grams 11RF 30 days NS J44.9 - Chronic obstructive pulmonary disease, unspecified Coding Level of Care Code Est Pt Level 4 (70190) Diagnoses ILD (interstitial lung disease) J84.9 Simple chronic bronchitis J41.0 COPD type: chronic bronchitis Chronic bronchitis type: simple Dyspnea on exertion R06.09 Dyspnea type: dyspnea on exertion GEOVANNI (obstructive sleep apnea) G47.33 Asbestos exposure Z77.090 Nasal septal perforation J34.89 Time Spent (min) 17
== END 2023-09-02 16:08 | disposition home or self-care (01) ==
PROVIDERS: PCP Internal Medicine; Visit Provider Hospitalist
DX: J84.9 Interstitial pulmonary disease, unspecified (principal); J41.0 Simple chronic bronchitis; R06.09 Other forms of dyspnea; G47.33 Obstructive sleep apnea (adult) (pediatric); Z77.090 Contact with and (suspected) exposure to asbestos; J34.89 Other specified disorders of nose and nasal sinuses
CPT/HCPCS: 99214

== ENCOUNTER 2023-09-02 15:46 | Outpatient (REF) | payer MEDICARE, OTHER, SELFPAY ==
--- NOTE | ~2023-09-02 | XR_ITS ---
EXAMINATION: XR CHEST CLINICAL INFORMATION: Interstitial pulmonary disease, unspecified COMPARISON: January 2022. TECHNIQUE: 2 views of the chest were obtained. FINDINGS: No new dominant airspace consolidation or pleural effusions. The hilar regions and pulmonary vascularity appear to be stable. Slight interstitial prominence not appearing significantly changed. There are minimal thoracic spondylitic changes. XR/XR chest 2V IMPRESSION: No new dominant infiltrates or effusions. Slight interstitial prominence not appearing appreciably changed.
== END 2023-09-02 15:47 | disposition home or self-care (01) ==
LOC: HO.XRAY 15:46
PROVIDERS: PCP Internal Medicine; Visit Provider Hospitalist
DX: J84.9 Interstitial pulmonary disease, unspecified (principal)
CPT/HCPCS: 71046

== ENCOUNTER 2024-03-28 10:48 | Outpatient (AMB) | payer MEDICARE, OTHER, SELFPAY ==
[2024-03-28 10:54] VITALS: BP 108/64; PULSE 68; O2SAT 95; BMI 39.2
--- NOTE | 2024-03-28 10:54 | MHC.OFFVIS ---
Vital Signs 03/28/24 10:54 Height 5 ft 7 in Weight 250 lb 3.594 oz BMI 39.2 BP 108/64 Blood Pressure Location Rt brachial Position Sitting Pulse 68 Pulse Source Pulse Oximeter Pulse Oximetry (%) 95 Oxygen Delivery Method Room Air Intake Visit Reasons: asthma Allergies No Known Allergies Allergy (Verified 03/28/24 10:56) HPI Comments Details: The patient is a 63-year-old gentleman with a known history of past substance abuse and alcohol use now with underlying liver cirrhosis and obstructive sleep apnea. The patient has been complaining worsening dyspnea on exertion moderate severity. In addition the patient does complaint of a cough at times productive in nature. Being a white phlegm. Denies any hemoptysis. He was evaluated at [facility] . Underwent pulmonary function studies in addition to a CT scan of the chest. We did personally review the report. the patient has evidence of interstitial lung disease primarily in the subpleural area as well as some areas of ground-glass opacities. The patient was placed on Trelegy. Although it is very expensive for him to pay and now he is not able to afford it. He did feel the Trelegy was helping some. The patient does sleep on a recliner. He states that he had diagnosis of sleep apnea. Reason the last few months he did undergo an [facility]-lab sleep [facility] We did review the report. This was a suboptimal study as the patient only slept about a couple hours and did not have any significant sleep apnea during those 2 hours. The patient did desaturate below 88% for about 9 minutes. Therefore the patient likely requires oxygen supplementation at nighttime. This will be checked with an overnight oximetry. In the future we can consider repeating this study. During the visit the patient was taken for a walking oximetry. He is currently healing from a wound in his lower extremity making it very difficult for him to ambulate. The patient did not qualify for oxygen with activity. 12/23/2021 the patient is here for pulmonary follow-up visit. The patient overall has been doing better. He is responding well to the inhaler. He is using as prescribed. Although, too expensive about 50 dollars a month. Will continue for now although will looking to more financially reasonable with her options in the near future. In addition to that he did start the oxygen at nighttime. The oxygen therapy has been affecting beneficial. The patient is still struggling with the CPAP. he does try to use it. The CPAP therapy is affecting beneficial. He should be using it every night more than 4 hours a night. The patient will return in about 3-4 months and undergo pulmonary function studies. Depending of the results we can consider additional evaluation specially for hepatopulmonary conditions. 02/20/2022 the patient has a telephone visit today due to the patient's she is worsening respiratory symptoms. He has been complaining of cough and shortness of breath. Moderate severity. His also was noticed that he has been more tired and sleeping more. The patient does have liver cirrhosis in addition to his COPD. Therefore she was sent to get blood work. His ammonia level was within normal limits which is reassuring. Although his venous blood gas demonstrated hypercarbia with acute on chronic respiratory acidosis. Therefore, the patient was referred to the hospital. He was evaluated in the ER. There he had a CT scan of the chest demonstrating extensive ground-glass opacities he was admitted to the hospital briefly. 03/30/2022 the patient is here for pulmonary follow-up visit. He was last seen back in February where he was confuse and was hypercarbic. He did go to the ER where he had a ABG done demonstrating resolution of the hypercarbia. His lactic acid was indeed elevated and the patient did have a CT scan consistent with ill-defined hazy opacities throughout which may have been due to an atypical type of pneumonia. He was treated with antibiotics and the patient clinically is feeling better from a respiratory status. However, he has noticed significant lower extremity edema. He has been using his Lasix. His scan a few lb. He did go to a [employer] party and they did have a lot of snacks. Probably dietary indiscretion did take place during that time. Unfortunately he now has significant amount of fluid. He was going to go ahead and double up on the Lasix at least for the morning does from 40-80 for 3 days to see if this helps with his fluid status. He is also should be using the compression stockings and he can talk to his provider about Nathen bandage wraps. Patient has significant fluid. Does not appear to be infected at this time although he just finished a course of antibiotics. If his the redness comes back and his legs feel more warm. He can always call here but I will send him a course of doxycycline that he can start in the meantime. The 07/30/2022 the patient is here for a pulmonary follow-up visit. The patient overall is doing better. He had issues with depression and went back to drinking and therefore was admitted to [facility] psychiatrically and then went to rehab afterwards. That was tough for him. Although he is now working with a counselor and waiting for psychiatrist to try to get back to normal with that. He is using the CPAP at nighttime. He is also using the oxygen with. He is wondering if it needs to be adjusted. He is not getting supplies from any DME company and the patient is no longer active with any [employer] company. Therefore now that he also requires oxygen and has had issues with hypercarbia the patient needs to have an in-lab study to further address 1st of all his diagnosis of sleep apnea and then afterwards address the issue of if the patient benefits from BiPAP or IPAP to address his respiratory failure component. He continues with respiratory medicines and also has been and diuretics with good effect. The only issue is that the inhalers are expensive. I will switch him over to Symbicort in hopes that is a little bit better antunez and efficacy. The Will plan to continue the inhalers and will follow-up after the in-lab sleep study. 10/29/2022 the patient is here for a pulmonary follow-up visit. Overall the patient is doing a lot better. He brought in the CPAP and we were able to adjusted to the Pred pressure. He has been tolerating the new pressure is very well. I did request he can bring it to the next visit so we can download the machine. He does uses CPAP every night for more than 4 hours a night. Again the therapy has been affecting beneficial. In meantime he continues with his respiratory therap. the patient is still working with his alcohol. He recently went back to AA. In the meantime he was in the pool and he lacerated his left lower extremity. Now appears to be significantly inflamed erythematous indurated warm. This is consistent with cellulitis. Will go ahead and prescribed some antibiotics to make sure that it does not get worse. We did marked. The patient is aware that if the swelling gets worse he needs to seek urgent medical advice otherwise follow-up with his primary care. The patient returns will bring his machine in so we can download the data. 09/02/2023 the patient is here for pulmonary follow-up visit. The patient overall fairly okay. He ran out of his inhalers therefore he has been short of breath. Make sure to send to the pharmacy. In addition to that we did look at his last CT scan from March 09 demonstrating pneumonitis. The patient will get a chest x-ray today. He also recently underwent an endoscopy and demonstrated that he does have esophageal varices. The patient did undergo banding. No evidence of any active bleeding. He is trying to be careful with his medication adherence. In addition to that he did get a new CPAP. The CPAP therapy 5 has been very affecting beneficial. Although he has not gotten to use the new machine as of yet since he has been too hot upstairs where he sleeps. He is going to start using it tonight however. He understands that if he does not use it it may be taken back. Therefore he needs use it more than 4 hours a night. Does use oxygen with it. Hopefully by using the CPAP regularly he will feel better during the daytime. His [place] score is still elevated at 11 over 24. The patient also will monitor closely his p.o. intake. He has 2 avoid anything was salt since he is having some lower extremity edema and also already have some portal hypertension. He does take diuretics for that. 03/28/2024 the patient is here for a pulmonary follow-up visit. The patient overall has been doing okay. He was briefly hospitalized in he underwent endoscopy demonstrating varices. Status post banding. He was diagnosed with portal hypertension. His placed on blood pressure medications. He is also taking diuretics. He is having issues with hoarseness. He has been tolerating the CPAP the CPAP therapy has been affecting beneficial. He is having issues with his mask. I will request a replacement mask, F40 so they can be fit to him. I believe this mask would be lot more comfortable for him. He does find CPAP to be very affecting beneficial. Patient also has been having issues with shortness of breath and deconditioning. He has also gained weight. We did talk about pulmonary rehabilitation is been be very effective for him. He is going to think about it. In the meantime will plan to follow-up with PFTs for his next follow-up in then we can discuss about pulmonary rehab further. In the meantime he is going to make some dietary indiscretions and eliminate salt specially because his liver cirrhosis. On exam he does have some irritation to the left tonsil appears to be infection. Will go ahead and start him on chlorhexidine mouthwash. If he continues have the abnormality he should follow-up with his primary care. [facility] Medical History (Updated 10/30/22 @ 00:14 by Ryne Alejandro MD) Nocturnal hypoxia Altered mental state Nasal septal perforation Asbestos exposure GEOVANNI (obstructive sleep apnea) Dyspnea ILD (interstitial lung disease) COPD (chronic obstructive pulmonary disease) Social History Household Members: Spouse Housing: House Patient Tobacco Use Status: Never used Tobacco Substance Use Type: Other service: No Current occupational status: retired Review of Systems Const Reports daytime sleepiness, Denies fatigue and Reports weight gain Eyes Denies change in vision ENT Denies change in voice, Reports nasal congestion and Reports nasal discharge Card Denies chest pain, Reports leg edema, Reports dyspnea on exertion and Reports paroxysmal nocturnal dyspnea Resp Reports chest congestion, Reports cough, Denies hemoptysis, Reports dyspnea on exertion and Denies wheezing GI Denies abdominal pain Musc Reports abnormal gait, Reports myalgias, Reports arthralgias and Reports joint swelling Skin/Breast Reports as per HPI Neuro Reports abnormal gait Endo Denies fatigue Ramana/Lymph Denies easy bleeding and Denies easy bruising Aller/Immun Denies wheezing Physical Exam Vital Signs: Last Vital Signs Pulse 68 03/28/24 10:54 BP 108/64 03/28/24 10:54 Pulse Ox 95 03/28/24 10:54 Oxygen Delivery Method Room Air 03/28/24 10:54 BMI result Body Mass Index 39.2 Const General: comfortable HEENT Head: Yes normal to inspection General nose exam: Abnormal nasal septum present perforated Throat: Yes abnormal tonsil (exudative appearance over the left tonsil) Eyes General: appearance normal, both eyes and all related structures Sclerae: scleral abnormal bilateral Neck Neck: Yes supple Chest Chest palpation & inspection: normal inspection of the chest Resp Auscultation: no rhonchi, no wheezes and diminished lung sounds Cardio Rate: regular rate Rhythm: regular rhythm Heart sounds: S1 normal heart sound present and S2 normal heart sound present GI Inspection: Yes normal to inspection Skin General skin exam: no rashes or lesions noted Extrem General: No clubbing, No cyanosis and Yes edema Assessment & Plan Assessment & Plan (1) ILD (interstitial lung disease): Code(s): J84.9 - Interstitial pulmonary disease, unspecified Category: Medical (2) COPD (chronic obstructive pulmonary disease): Code(s): J44.9 - Chronic obstructive pulmonary disease, unspecified Category: Medical Qualifiers: COPD type: chronic bronchitis Chronic bronchitis type: simple Qualified Code(s): J41.0 - Simple chronic bronchitis (3) Dyspnea: Code(s): R06.00 - Dyspnea, unspecified Category: Medical Qualifiers: Dyspnea type: dyspnea on exertion Qualified Code(s): R06.09 - Other forms of dyspnea (4) GEOVANNI (obstructive sleep apnea): Code(s): G47.33 - Obstructive sleep apnea (adult) (pediatric) Category: Medical (5) Asbestos exposure: Code(s): Z77.090 - Contact with and (suspected) exposure to asbestos Category: Medical (6) Nasal septal perforation: Code(s): J34.89 - Other specified disorders of nose and nasal sinuses Category: Medical Plan Continue CPAP 13cm with 2L oxygen, trial F40 mask continue oxygen therapy NICOLE as needed stop symbiocrt due to cost start Wixela start chlorhexadine (monitor exudative changes to the left tonsil) diuresis as tolerated low Na diet CXR PFTs F/U 4 months Orders: Orders PFT pulmonary function test 3 Months J41.0 - Simple chronic bronchitis Medications: New chlorhexidine gluconate 0.12% 15 mL buccal BID 14 days 600 mL 0RF fluticasone propion-salmeterol 250-50 mcg/dose (Wixela Inhub) 1 inh inhalation Q12H 30 days 60 ea 11RF fluticasone propion-salmeterol 250-50 mcg/dose (Wixela Inhub) 1 inh inhalation Q12H 30 days 60 ea 11RF Coding Level of Care Code Est Pt Level 4 (83851) Complex EM visit Add On G2211 Diagnoses ILD (interstitial lung disease) J84.9 Simple chronic bronchitis J41.0 COPD type: chronic bronchitis Chronic bronchitis type: simple Dyspnea on exertion R06.09 Dyspnea type: dyspnea on exertion GEOVANNI (obstructive sleep apnea) G47.33 Asbestos exposure Z77.090 Nasal septal perforation J34.89 Time Spent (min) 17
== END 2024-03-28 11:28 | disposition home or self-care (01) ==
PROVIDERS: PCP Internal Medicine; Visit Provider Hospitalist
DX: J84.9 Interstitial pulmonary disease, unspecified (principal); J41.0 Simple chronic bronchitis; R06.09 Other forms of dyspnea; G47.33 Obstructive sleep apnea (adult) (pediatric); Z77.090 Contact with and (suspected) exposure to asbestos; J34.89 Other specified disorders of nose and nasal sinuses
CPT/HCPCS: 99214; G2211

== ENCOUNTER → 2024-03-28 10:48 | Outpatient (BNVA) | payer MEDICARE, OTHER, SELFPAY | PROVIDERS: PCP Internal Medicine; Visit Provider Hospitalist | DX: J41.0 Simple chronic bronchitis (principal); G47.33 Obstructive sleep apnea (adult) (pediatric); R06.09 Other forms of dyspnea; J84.9 Interstitial pulmonary disease, unspecified; J34.89 Other specified disorders of nose and nasal sinuses; Z77.090 Contact with and (suspected) exposure to asbestos | CPT/HCPCS: 99212 ==

== ENCOUNTER 2024-06-08 12:52 | Outpatient (REF) | payer MEDICARE, OTHER, SELFPAY ==
--- NOTE | 2024-06-08 12:56 | PFT_ITS ---
Spirometry [] Lung Volumes [] Diffusion Capacity [] Methacholine Challenge [] Flow Volume Loops [] MVV [] MIP/MEP(Max inspiratory pressure/Max expiratory pressure) [] 6 Minute Walk Test [] ABG [] Interpretation [] MTDD
[2024-06-08 13:34] VITALS: PULSE 71; O2SAT 97
--- OUTSIDE RECORDS SUMMARY | 2024-06-08 15:08 | XMS_ITS | Encounter Summary ---
Author Organization [employer] [facility] Address [address] [place] [address] Care Team Providers Care Bee Breeder Name Role Phone Jonny Lima MD Primary Care Provider [phone] Encounter Details Date Type Department Care Team Description 02/22/2022 [facility] Medical Records [address] [place] [address] Digna Lennon PA-C Social History Tobacco Use Types Packs/Day Years Used Date Smoking Tobacco: Never Passive Smoke Exposure: Past Smokeless Tobacco: Never Alcohol Use Standard Drinks/Week Comments No 0 (1 standard drink = 0.6 oz pur e alcohol) quit 03/28/2018 Sex Assigned at Date Recorded Male 07/20/2020 9:55 AM E DT Job Start Date Occupation Industry Not on file Not on file Not on file documented as of this encounter Plan of Treatment Not on file documented as of this encounter Visit Diagnoses Not on filedocumented in this encounter Care Teams Bee Breeder Relationship Specialty Start Date End Date Jonny Lima MD [address] [place] [address] PCP - General Internal Medicine 01/13/19 documented as of this encounter
--- OUTSIDE RECORDS SUMMARY | 2024-06-08 15:08 | XMS_ITS | Encounter Summary ---
Author Organization [facility] Address [address] [place] [address] Care Team Providers Care Rolloff Truck Driver Name Role Phone Jonny Lima MD Primary Care Provider [phone] Encounter Details Date Type Department Care Team Description 11/04/2019 [facility] Medical Records [address] [place] [address] Social History Tobacco Use Types Packs/Day Years Used Date Smoking Tobacco: Never Passive Smoke Exposure: Past Smokeless Tobacco: Never Alcohol Use Standard Drinks/Week Comments No 0 (1 standard drink = 0.6 oz pur e alcohol) quit 03/28/2018 Sex Assigned at Date Recorded Male 07/20/2020 9:55 AM E DT Job Start Date Occupation Industry Not on file Not on file Not on file COVID-19 Exposure Response Date Recorded In the last month, have you been in contact with someone who was confirmed or suspected to have Coronavirus / COVID-19? No / Unsure 10/20/2019 9:55 AM EDT documented as of this encounter Plan of Treatment Not on file documented as of this encounter Visit Diagnoses Not on filedocumented in this encounter Care Teams Rolloff Truck Driver Relationship Specialty Start Date End Date Jonny Lima MD [address] [place] [address] PCP - General Internal Medicine 01/13/19 documented as of this encounter
--- OUTSIDE RECORDS SUMMARY | 2024-06-08 15:08 | XMS_ITS | Encounter Summary ---
Author Organization [facility] Address [address] [place] [address] Care Team Providers Care Investment Advisor Name Role Phone Jonny Lima MD Primary Care Provider [phone] Encounter Details Date Type Department Care Team Description 11/03/2019 Hospital Medical Records [address] [place] [address] Brothers, MD Anthony Social History Tobacco Use Types Packs/Day Years [...] on filedocumented in this encounter Care Teams Investment Advisor Relationship Specialty Start Date End Date Jonny Lima MD [address] [place] [id number] PCP - General Internal Medicine 01/13/19 documented as of this encounter
--- OUTSIDE RECORDS SUMMARY | 2024-06-08 15:08 | XMS_ITS | Encounter Summary ---
Author Organization [facility] Address [address] [place] [address] Care Team Providers Care Distribution Sales Manager Name Role Phone Jonny Lima MD Primary Care Provider [phone] Reason for Visit * Reason Comments E-prescribe Rx Request Encounter Details Date Type Department Care Team Description 10/24/2019 Refill Medicine/Pediatrics - [place] [address] [place] [phone] Jonny Lima, [address] [place] [address] E-prescribe Rx Request Social History Tobacco Use Types Packs/Day Years Used Date Smoking Tobacco: Never Smokeless Tobacco: Never Alcohol Use Standard Drinks/Week [...] AM EDT documented as of this encounter Miscellaneous Notes * Telephone Encounter - Alvina Stearns - 10/24/2019 4:47 PM EDT Patient would like script to be: E-PRESCRIBED/FAXED TO PHARMACY WHEN WAS THE PATIENT'S LAST APPOINTMENT IN ADULT MEDICINE? 10/20/19 WHEN WAS THE LAST TIME THE PATIENT SAW THEIR PCP? Same as above Does patient have an upcoming appointment? (THE MEDICATION REQUESTED IS ON THE MED LIST ABOVE) All of the medications requested were on the CURRENT MEDS list Did you check the Pharmacy information above?: YES Patient wants: 30 -day supply Is this a mail order prescription request ? NO If the refill is from a FAXED refill request what is the RX # listed on the fax? N/A Patients current insurance carrier is: Payor: [employer] PLAN / Plan: DIRECT BRONZE $50/$90 [facility] [id number] / Product Type: HMO [id number] documented in this encounter Plan of Treatment Not on file documented as of this encounter Visit Diagnoses Not on filedocumented in this encounter Care Teams Distribution Sales Manager Relationship Specialty Start Date End Date Jonny Lima MD [address] [place] [address] PCP - General Internal Medicine 01/13/19 documented as of this encounter
--- OUTSIDE RECORDS SUMMARY | 2024-06-08 15:08 | XMS_ITS | Encounter Summary ---
Author Organization [facility] Address [address] [place] [address] Care Team Providers Care Financial Accountant Name Role Phone Amira Shannon MD Primary Care Provider Unavailable Jonny Lima MD Primary Care Provider [phone] Amira Shannon MD Primary Care Provider Unavailable Jonny Lima MD Primary Care Provider [phone] Encounter Details Date Type Department Care Team Description 03/21/2018 Telephone Adult Medicine - [address] [address] Amira Shannon MD Social History Tobacco Use Types Packs/Day Years Used Date Smoking Tobacco: Never Smokeless Tobacco: Never Alcohol Use Standard Drinks/Week Comments No 0 (1 standard drink = 0.6 oz pur e alcohol) former alcohol absue Sex Assigned at Date Recorded Male 07/20/2020 9:55 AM E DT Job Start Date Occupation Industry Not on file Not on file Not on file documented as of this encounter Miscellaneous Notes * Telephone Encounter - Shoshana Wilson R.N. - 03/24/2018 12:22 PM EST Called and spoke with patient. Patient states he has not followed up yet but states he is working on it . Patient agrees to call with questions or concerns. FYI to . * Telephone Encounter - Shoshana Wilson R.N. - 03/21/2018 1:06 PM EST Called patient. Got name identified voicemail. Left message for patient to return call * Telephone Encounter - Amira Shannon MD - 03/21/2018 12:17 PM EST At his visit last week he told me he planned on called to get into inpatient detox for alcohol. Canyou please call and see if he did call and got in or has a spot soon? Thanks documented in this encounter Plan of Treatment Not on file documented as of this encounter Visit Diagnoses Not on filedocumented in this encounter Care Teams Financial Accountant Relationship Specialty Start Date End Date Amira Shannon MD PCP - General Internal Medicine 06/01/14 Jonny Lima, [address] [place] [address] PCP - General Internal Medicine 07/13/18 11/22/18 Amira Shannon MD PCP - General Internal Medicine 11/23/18 Jonny Lima, [address] [place] [address] PCP - General Internal Medicine 01/13/19 documented as of this encounter
--- OUTSIDE RECORDS SUMMARY | 2024-06-08 15:08 | XMS_ITS | Encounter Summary ---
Author Organization [facility] Address [address] [place] [address] Care Team Providers Care Molding Machine Setter Name Role Phone Amira Shannon MD Primary Care Provider Unavailable Jonny Lima MD Primary Care Provider [phone] Amira Shannon MD Primary Care Provider Unavailable Jonny Lima MD Primary Care Provider [phone] Reason for Visit * Reason Onset Date Comments APPOINTMENT 05/24/2018 EGD Encounter Details Date Type Department Care Team Description 05/24/2018 Telephone Gastroenterology - [address] [place] [address] Arnoldo Duvall MD APPOINTMENT (EGD) Social History Tobacco Use Types Packs/Day Years [...] encounter Miscellaneous Notes * Telephone Encounter - Kareen Parks - 05/24/2018 10:33 AM EDT 1st attempt to schedule appointment, LM to schedule an EGD with Dr. Duvall and a 6 month followup documented in this encounter Plan of Treatment Not on file documented as of this encounter Visit Diagnoses Not on filedocumented in this encounter Care Teams Molding Machine Setter Relationship Specialty Start Date End Date Radhika-Amira Mena MD PCP - General Internal Medicine 06/01/14 Jonny Lima, [address] [place] [address] PCP - General Internal Medicine 07/13/18 11/22/18 Radhika-Amira Mena MD PCP - General Internal Medicine 11/23/18 Jonny Lima, [address] [place] [address] PCP - General Internal Medicine 01/13/19 documented as of this encounter
--- OUTSIDE RECORDS SUMMARY | 2024-06-08 15:08 | XMS_ITS | Encounter Summary ---
Author Organization [facility] Address [address] [place] [address] Care Team Providers Care Supervisor Electrolytic Tinning Name Role Phone Amira Shannon MD Primary Care Provider Unavailable Nicanor Orozco MD Primary Care Provider Iza Pace DO Primary Care Provider Unavailabl e Amira Shannon MD Primary Care Provider Unavailable Jonny Lima MD Primary Care Provider +1 [phone] mAira Shannon MD Primary Care Provider Unavailable Jonny Lima MD Primary Care Provider +1 -[phone] Encounter Details Date Type Department Care Team Description 11/06/2009 Paper Hanger Report Medical Records [address] [place] [address] [place], [address] [address] Social History Tobacco Use Types Packs/Day Years Used Date Smoking Tobacco: Never Alcohol Use Standard Drinks/Week Comments No 0 (1 standard drink = 0.6 oz pur e alcohol) former Sex Assigned at Date Recorded Male 07/20/2020 9:55 AM E DT Job Start Date Occupation Industry Not on file Not on file Not on file documented as of this encounter Plan of Treatment Not on file documented as of this encounter Visit Diagnoses Not on filedocumented in this encounter Care Teams Supervisor Electrolytic Tinning Relationship Specialty Start Date End Date Amira Shannon MD PCP - General 04/28/1011/17 Nicanor Orozco MD PCP - General 06/15/01 04/27/10 Iza Barajas DO PCP - General Internal Medicine 11/19/11 05/31/14 Amira Shannon MD PCP - General Internal Medicine 06/01/14 Jonny Lima, [address] [place] [address] PCP - General Internal Medicine 07/13/18 11/22/18 Amira Shannon MD PCP - General Internal Medicine 11/23/18 Jonny Lima, [address] [place] [address] PCP - General Internal Medicine 01/13/19 documented as of this encounter
--- OUTSIDE RECORDS SUMMARY | 2024-06-08 15:08 | XMS_ITS | Encounter Summary ---
Author Organization [facility] Address [address] [place] [address] Care Team Providers Care Uniform Cap Operator Name Role Phone Amira Shannon MD Primary Care Provider Unavailable Iza Barajas DO Primary Care Provider Unavailabl e Amira Shannon MD Primary Care Provider Unavailable Jonny Lima MD Primary Care Provider [phone] [phone] Amira Shannon MD Primary Care Provider Unavailable Jonny Lima MD Primary Care Provider +1 -[phone] Encounter Details Date Type Department Care Team Description 06/24/2010 Stereoptic Projection Topographer Report Medical Records [address] [place] [address] [place] Social History Tobacco Use Types Packs/Day Years [...] on filedocumented in this encounter Care Teams Uniform Cap Operator Relationship Specialty Start Date End Date Amira Shannon MD PCP - General 04/28/1011/17 Iza Barajas DO PCP - General Internal Medicine 11/19/11 05/31/14 Amira Shannon MD PCP - General Internal Medicine 06/01/14 Jonny Lima MD [address] [place], [place] [id number] PCP - General Internal Medicine 07/13/18 11/22/18 Radhika-Amira Mena MD PCP - General Internal Medicine 11/23/18 Jonny Lima MD [address] [place] [address] PCP - General Internal Medicine 01/13/19 documented as of this encounter
--- OUTSIDE RECORDS SUMMARY | 2024-06-08 15:08 | XMS_ITS | Encounter Summary ---
Author Organization [facility] Address [address] [place] [address] Care Team Providers Care Biology Manager Name Role Phone Jonny Lima MD Primary Care Provider [phone] [phone] Encounter Details Date Type Department Care Team Description 01/22/2022 Pt. Non Urgent Medic al Question Adult Medicine - [address] [address] Harris Solomon PA-C [address] [place] [address] Social History Tobacco Use Types Packs/Day Years [...] encounter Miscellaneous Notes * Telephone Encounter - Shweta Madsen L.P.N. - 01/22/2022 3:37 PM EST From: Raul Metz To: Alexandrea Solomon Sent: 01/22/2022 3:29 PM EST Subject: Yasmeen amado at [facility] is looking for records for yasmeen. I???m assuming he would need the woundcare information is that some thing that could be givin to them. I guess they have tried to call [employer] and no luck with getting a hold of some one Thanks Jorge and yasmeen metz documented in this encounter Plan of Treatment Not on file documented as of this encounter Visit Diagnoses Not on filedocumented in this encounter Care Teams Biology Manager Relationship Specialty Start Date End Date Jonny Lima MD [address] [place] [address] [facility] [place] [address] PCP - General Internal Medicine 01/13/19 documented as of this encounter
--- OUTSIDE RECORDS SUMMARY | 2024-06-08 15:08 | XMS_ITS | Encounter Summary ---
Author Organization [facility] Address [address] [place] [address] Care Team Providers Care Carton Forming Machine Operator Name Role Phone Jonny Lima MD Primary Care Provider [phone] [phone] Encounter Details Date Type Department Care Team Description 06/27/2020 Orders Only Lab - [place] [address] [place] [address] Jonny Lima, [address] [place] [address] Alcoholic cirrhosis of liver with ascites (HCC) (Primary Dx) Social History Tobacco Use Types Packs/Day Years [...] on file documented as of this encounter Results * (ABNORMAL) AMMONIA, BLOOD, ASSAY (09/09/2020 3:33 PM EDT) AMMONIA (NH3) 37(H) 11 - 35 umol/L 09/09/2020 5:03 PM EDT [facility] 09/09/2020 3:33 PM EDT 09/09/2020 3:33 PM EDT [facility]ative [facility] - 09/09/2020 5:03 PM EDT Release to patient->Immediate Jonny Lima MD LAB [facility] [employer] documented in this encounter Visit Diagnoses Diagnosis Alcoholic cirrhosis of liver with ascites (HCC)- Primary Alcoholic cirrhosis of liver Alcoholic cirrhosis of liver with ascites (HCC) Alcoholic cirrhosis of liver documented in this encounter Care Teams Carton Forming Machine Operator Relationship Specialty Start Date End Date Jonny Lima, [address] [place] [address] PCP - General Internal Medicine 01/13/19 documented as of this encounter
--- OUTSIDE RECORDS SUMMARY | 2024-06-08 15:08 | XMS_ITS | Encounter Summary ---
Author Organization [facility] Address [address] [place] [address] Care Team Providers Care Fermentologist Name Role Phone Amira Shannon MD Primary Care Provider Unavailable Jonny Lima MD Primary Care Provider [phone] [phone] Amira Shannon MD Primary Care Provider Unavailable Jonny Lima MD Primary Care Provider +1 [phone] Reason for Visit * Reason Onset Date Comments Provider Call Back 03/30/2018 Encounter Details Date Type Department Care Team Description 03/30/2018 Telephone Adult [facility] - [address] [address] Amira Shannon MD Provider Call Back Social History Tobacco Use Types Packs/Day Years [...] encounter Miscellaneous Notes * Telephone Encounter - Chayo Hall - 03/30/2018 4:42 PM EST FYI to provider- pt went to [facility]. documented in this encounter Plan of Treatment Not on file documented as of this encounter Visit Diagnoses Not on filedocumented in this encounter Care Teams Fermentologist Relationship Specialty Start Date End Date Amira Shannon MD PCP - General Internal Medicine 06/01/14 Jonny Lima, [address] [place] [address] PCP - General Internal Medicine 07/13/18 11/22/18 Amira Shannon MD PCP - General Internal Medicine 11/23/18 Jonny Lima, [address] [place] [address] PCP - General Internal Medicine 01/13/19 documented as of this encounter
--- OUTSIDE RECORDS SUMMARY | 2024-06-08 15:09 | XMS_ITS | Encounter Summary ---
Author Organization [facility] Address [address] [place] [address] Care Team Providers Care Kinesiologist Name Role Phone Amira Shannon MD Primary Care Provider Unavailable Jonny Lima MD Primary Care Provider [phone] [phone] Amira Shannon MD Primary Care Provider Unavailable Jonny Lima MD Primary Care Provider +1 [phone] Encounter Details Date Type Department Care Team Description 02/21/2016 C Application Developer Report Medical Records [address] [place] [address] Kanika Mosqueda MD Social History Tobacco Use Types Packs/Day [...] on filedocumented in this encounter Care Teams Kinesiologist Relationship Specialty Start Date End Date Amira Shannon MD PCP - General Internal Medicine 06/01/14 Jonny Lima MD [address] [place], [place] [address] PCP - General Internal Medicine 07/13/18 11/22/18 mAira Shannon MD PCP - General Internal Medicine 11/23/18 Jonny Lima MD [address] [place] [address] [place] [address] PCP - General Internal Medicine 01/13/19 documented as of this encounter
--- OUTSIDE RECORDS SUMMARY | 2024-06-08 15:09 | XMS_ITS | Encounter Summary ---
Author Organization [facility] Address [address] [place] [address] Care Team Providers Care Drug Abuse Technician Name Role Phone Jonny Lima MD Primary Care Provider [phone] [phone] Reason for Visit * Reason Comments E-prescribe Rx Request Encounter Details Date Type Department Care Team Description 07/22/2021 Refill Adult Medicine - [place] [address] [place] [address] Jonny Lima MD [address] [place] [address] E-prescribe Rx Request Social History Tobacco Use [...] on filedocumented in this encounter Care Teams Drug Abuse Technician Relationship Specialty Start Date End Date Jonny Lima MD [address] [place] [address] PCP - General Internal Medicine 01/13/19 documented as of this encounter
--- OUTSIDE RECORDS SUMMARY | 2024-06-08 15:09 | XMS_ITS | Encounter Summary ---
Author Organization [facility] Address [address] [place] [address] Care Team Providers Care Die Cutter Name Role Phone Jonny Lima MD Primary Care Provider [phone] [phone] Reason for Visit * Reason Onset Date Comments Medication 07/06/2023 Encounter Details Date Type Department Care Team Description 07/06/2023 Refill Gastroenterology - [place] [address] [facility] [address] [place] [id number] Deny Reis DO [address] [facility] [address] [facility] [place] [address] Medication Social History Tobacco Use Types Packs/Day Years [...] on filedocumented in this encounter Care Teams Die Cutter Relationship Specialty Start Date End Date Jonny Lima MD [address] [place] [address] PCP - General Internal Medicine 01/13/19 documented as of this encounter
--- OUTSIDE RECORDS SUMMARY | 2024-06-08 15:09 | XMS_ITS | Encounter Summary ---
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
--- OUTSIDE RECORDS SUMMARY | 2024-06-08 15:09 | XMS_ITS | Encounter Summary ---
Author [facility] Address [address] [place] [address] Care Team Providers Care Rn X Ray Name Role Phone Jonny Lima MD Primary Care Provider +1 -[phone] Encounter Details Date Type Department Care Team Description 07/27/2019 Support Services Tech Report Medical Records [address] [place] [address] Brothers, MD Anthony Social History Tobacco Use [...] on filedocumented in this encounter Care Teams Rn X Ray Relationship Specialty Start Date End Date Jonny Lima MD [address] [place] [address] PCP - General Internal Medicine 01/13/19 documented as of this encounter
--- OUTSIDE RECORDS SUMMARY | 2024-06-08 15:09 | XMS_ITS | Encounter Summary ---
Author Organization [facility] Address [address] [place] [address] Care Team Providers Care Bull Riveter Name Role Phone Jonny Lima MD Primary Care Provider [phone] [phone] Amria Shannon MD Primary Care Provider Unavailable Jonny Lima MD Primary Care Provider +1 [phone] Reason for Visit * Reason Onset Date Comments Provider Call Back 11/16/2018 Encounter Details Date Type Department Care Team Description 11/16/2018 Telephone Adult Medicine - [place] [address] [place] [address] Jonny Lima MD [address] [place] [address] Provider Call Back Social History Tobacco Use [...] encounter Miscellaneous Notes * Telephone Encounter - Darlene Shaw L.P.N. - 11/17/2018 11:45 AM EDT Left message to call back.with questions Left msg advising pcp out of office till Wednesday Encouraged to keep appt 11-23-18 with GI, that I see he has scheduled * Telephone Encounter - Nisa Haynes - 11/16/2018 12:36 PM EDT Caller requesting call back from provider: Le Lima Is the caller the patient? YES If caller is not the patient, what is the callers name? N/A Callers relationship to patient? N/A If person calling is not the patient themselves, is there a verbal release in FYI or permanent comments for this person: NO Reason for call back: The patient wants to inform pcp that nothing has changed since his last visiton 11/01. Patient states nothing has changed and he is continuing to have an increase in his weight.The patient states he spoke to his GI doctor, states they were no help. Patient is requesting to speak to somebody about what the next steps are for this. Please advise. Caller offered to speak with the nurse for assistance: YES Response: Patient offered to speak with nurse for assistance and patient agreed. Message forwarded to nurse. documented in this encounter Plan of Treatment Not on file documented as of this encounter Visit Diagnoses Not on filedocumented in this encounter Care Teams Bull Riveter Relationship Specialty Start Date End Date Jonny Lima MD [address] [place] [address] PCP - General Internal Medicine 07/13/18 11/22/18 Amira Shannon MD [address] [place] [address] PCP - General Internal Medicine 11/23/18 01/12/19 Jonny Lima MD [address] [place] [address] PCP - General Internal Medicine 01/13/19 documented as of this encounter
--- OUTSIDE RECORDS SUMMARY | 2024-06-08 15:09 | XMS_ITS | Encounter Summary ---
Author Organization [facility] Address [address] [place] [address] Care Team Providers Care Review Assistant Name Role Phone Jonny Lima MD Primary Care Provider +1 -[phone] Reason for Visit * Reason Onset Date Comments Prior Authorization 04/09/2021 MRI BRAIN Encounter Details Date Type Department Care Team Description 04/09/2021 Telephone Internal Medicine - [address], [address] [place] [address] Harris Solomon PA-C [address] [place] [address] Prior Authorization (MRI BRAIN) Social History Tobacco Use Types Packs/Day Years [...] have Coronavirus / COVID-19? No / Unsure 04/03/2021 3:48 PM EST documented as of this encounter Miscellaneous Notes * Telephone Encounter - Gabi Cortes - 04/09/2021 8:45 AM EST Patient has appointment on 04/13/21 at 1030 so will need this order today if possible to fax to them. Thank You Gabi Cortes [phone] Prior Auth Department * Telephone Encounter - Gabi Ruizregard - 04/09/2021 8:24 AM EST You placed an internal order for MRI Brain. However due to insurance must be seen at [facility] for MRI. Please place a new external order so we may get patient auth and booked. 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
--- OUTSIDE RECORDS SUMMARY | 2024-06-08 15:09 | XMS_ITS | Encounter Summary ---
Author Organization [facility] Address [address] [place] [address] Care Team Providers Care Cook Enchilada Name Role Phone Amira Shannon MD Primary Care Provider Unavailable Jonny Lima MD Primary Care Provider [phone] Amira Shannon MD Primary Care Provider Unavailable Jonny Lima MD Primary Care Provider +1 -[phone] Encounter Details Date Type Department Care Team Description 01/09/2017 [facility] Medical Records [address] [place] [address] Social History Tobacco Use Types Packs/Day Years [...] on filedocumented in this encounter Care Teams Cook Enchilada Relationship Specialty Start Date End Date Amira Shannon MD PCP - General Internal Medicine 06/01/14 Jonny Lima MD [address] [place] [address] PCP - General Internal Medicine 07/13/18 11/22/18 Amira Shannon MD PCP - General Internal Medicine 11/23/18 Jonny Lima MD [address] [facility] [place] [address] PCP - General Internal Medicine 01/13/19 documented as of this encounter
--- OUTSIDE RECORDS SUMMARY | 2024-06-08 15:09 | XMS_ITS | Encounter Summary ---
Author Organization [facility] Address [address] [place] [address] Care Team Providers Care Transfer Pumper Name Role Phone Jonny Lima MD Primary Care Provider [phone] -[phone] Reason for Referral * EXTERNAL (Routine) - Closed Specialty Diagnoses / Procedures Referred By Contderek t Referred To Contact Pulmonology Procedures REFERRAL TO PULMONOLOGY Harris Solomon PA-C [address] [place] [address] Ryne Alejandro MD [address] [place] [phone] Referral ID Status Reason Start Date Expiration Date Visits Re quested Visits Authorized [id number] Closed 06/20/2021 06/20/2022 1 1 Encounter Details Date Type Department Care Team Description 06/20/2021 Orders Only Adult Medicine [address] [address] Harris Solomon PA-C [address] [place] [address] Social History Tobacco Use Types Packs/Day Years [...] Exposure Response Date Recorded In the last 10 days, have yo u been in contact with someone who was confirmed or suspected to have Coronavirus/COVID-19? No / Unsure 06/20/2021 3:01 PM EDT documented as of this encounter Plan of Treatment Not on file documented as of this encounter Visit Diagnoses Not on filedocumented in this encounter Care Teams Transfer Pumper Relationship Specialty Start Date End Date Jonny Lima MD [address] [place] [address] PCP - General Internal Medicine 01/13/19 documented as of this encounter
--- OUTSIDE RECORDS SUMMARY | 2024-06-08 15:09 | XMS_ITS | Encounter Summary ---
Author Organization [facility] Address [address] [place] [address] Care Team Providers Care Structural Worker Name Role Phone Amira Shannon MD Primary Care Provider Unavailable Jonny Lima MD Primary Care Provider [phone] [phone] Amira Shannon MD Primary Care Provider Unavailable Jonny Lima MD Primary Care Provider +1 -[phone] Reason for Referral * EXTERNAL (Routine) - Authorized/Booked Specialty Diagnoses / Procedures Referred By Contac t Referred To Contact Neurosurgery Procedures REFERRAL TO NEUROSURGERY Amira Shannon MD [address] [place] [address] Soham Chandler MD [address] [facility] [address] [place] [address] Referral ID Status Reason Start Date Expiration Date V isits Requested Visits Authorized SEE NOTE Authorized/B ooked 08/19/2017 11/19/2017 1 1 Reason for Visit * Reason Onset Date Comments Light Rail Train Operator Feedback 08/17/2017 Encounter Details Date Type Department Care Team Description 08/17/2017 Telephone Adult Medicine - [place] [address] [place] [address] Amira Shannon MD Light Rail Train Operator Feedback () Social History Tobacco Use Types Packs/Day Years [...] encounter Miscellaneous Notes * Telephone Encounter - Li Flor MD - 08/19/2017 8:40 AM EDT Order signed. * Telephone Encounter - Renetta Alejandro - 08/17/2017 10:54 AM EDT Please review this patients new referral request. The referral has been pended. Please complete thefollowing: If approved> sign order If denied>please give instructions and route to your practice nursing pool. Practice nurse should inform referrals and the patient if denied. Called [facility] Neurosurgery and spoke with Denise they will not accept patient plan or an out of network. Pended order without provider name. * Telephone Encounter - Alvina Stearns - 08/17/2017 10:22 AM EDT What insurance does the patient have today? Payor: [facility] PUBLIC [facility] / Plan: [facility] TYPE II $10/$18/ Product Type: HMO [id number] Effective 11/15/08: [employer] will not retro referral requests over 90 days. If request is for this please instruct patient to call the 800# on their insurance card to appeal. Do not submit a request. Referrals cannot be processed if the insurance is not accurate. If the insurance listed above in red is NO BILLING INFORMATION FOUND FOR THIS ENCOUTNER The patients correct insurance must be obtained and registered in [facility] or their referral can not be processed. Is this a retro request? NO. If yes for what date of service do you need the retro referral? N/A Who is calling to request this referral? The patient If the caller is not the patient, what is their name? N/A Ask the patient WHO referred them to this specialty: Patient self referred FIRST and LAST NAME of SPECIALIST PATIENT is seeing: Dr bandar vines What specialty is this? Nuerology DIAGNOSIS Patient is being seen for (Not a body part or a procedure): Back pain Have you seen this SPECIALIST for this PROBLEM/DX before?NO If YES, when: Have you checked REVIEW or the APPT DESK to see if this referral has already been done or has visits left? YES Is this visit:Initial Visit Address of Specialist: [address] [place] [address] Phone # of Specialist: [phone] Fax #: (if applicable):[phone] Does patient have an appointment scheduled?: NO Date of appointment- (including a retro-request): Is this appointment related to: Not MVA, WC or Surgery related documented in this encounter Plan of Treatment Not on file documented as of this encounter Visit Diagnoses Not on filedocumented in this encounter Care Teams Structural Worker Relationship Specialty Start Date End Date Amira Shannon MD PCP - General Internal Medicine 06/01/14 Jonny Lima MD [address] [place] [address] PCP - General Internal Medicine 07/13/18 11/22/18 Amira Shannon MD PCP - General Internal Medicine 11/23/18 Jonny Lima MD [address] [place] [address] PCP - General Internal Medicine 01/13/19 documented as of this encounter
--- OUTSIDE RECORDS SUMMARY | 2024-06-08 15:09 | XMS_ITS | Encounter Summary ---
Author Organization [facility] Address [address] [place] [address] Care Team Providers Care Swiss Machinist Name Role Phone Jonny Lima MD Primary Care Provider [phone] [phone] Encounter Details Date Type Department Care Team Description 11/02/2023 Hoist Cylinder Loader Report Medical Records [address] [place] [address] Oliver Montenegro PA-C Social History Tobacco Use Types Packs/Day [...] on filedocumented in this encounter Care Teams Swiss Machinist Relationship Specialty Start Date End Date Jonny Lima MD [address] [place] [address] PCP - General Internal Medicine 01/13/19 documented as of this encounter
--- OUTSIDE RECORDS SUMMARY | 2024-06-08 15:09 | XMS_ITS | Encounter Summary ---
Author Organization [employer] [facility] Address [address] [place] [address] Care Team Providers Care Redrawer Name Role Phone Jonny Lima MD Primary Care Provider +1 -[phone] Reason for Visit * Reason Comments E-prescribe Rx Request Encounter Details Date Type Department Care Team Description 07/18/2021 Refill Adult Medicine - [place] [address] [place] [address] Jonny Lima MD [address] [place] [address] E-prescribe Rx Request Social History Tobacco Use [...] Recorded In the last 10 days, have stanton u been in contact with someone who was confirmed or suspected to have Coronavirus/COVID-19? No / Unsure 06/20/2021 3:01 PM EDT documented as of this encounter Plan of Treatment Not on file documented as of this encounter Visit Diagnoses Not on filedocumented in this encounter Care Teams Redrawer Relationship Specialty Start Date End Date Jonny Lima MD [address] [place] [address] PCP - General Internal Medicine 01/13/19 documented as of this encounter
--- OUTSIDE RECORDS SUMMARY | 2024-06-08 15:09 | XMS_ITS | Encounter Summary ---
Author Organization [facility] Address [address] [place] [address] Care Team Providers Care Dam Operator Name Role Phone Jonny Lima MD Primary Care Provider +1 -[phone] Encounter Details Date Type Department Care Team Description 03/08/2019 Telephone Internal Medicine - [address], [address] [place] [address] Jonny Lima, [address] [place] [address] Social History Tobacco Use Types Packs/Day Years [...] on filedocumented in this encounter Care Teams Dam Operator Relationship Specialty Start Date End Date Jonny Lima MD [address] [place] [address] PCP - General Internal Medicine 01/13/19 documented as of this encounter
--- OUTSIDE RECORDS SUMMARY | 2024-06-08 15:09 | XMS_ITS | Encounter Summary ---
Author Organization [facility] Address [address] [place] [address] Care Team Providers Care Cocoa Bean Cleaner Name Role Phone Amira Shannon MD Primary Care Provider Unavailable Jonny Lima MD Primary Care Provider +1 [phone] Amira Shannon MD Primary Care Provider Unavailable Jonny Lima MD Primary Care Provider +1 -[phone] Encounter Details Date Type Department Care Team Description 01/09/2017 [facility] Medical Records [address] [place] [address] Tania Castillo Social History Tobacco Use Types Packs/Day Years [...] on filedocumented in this encounter Care Teams Cocoa Bean Cleaner Relationship Specialty Start Date End Date Amira Shannon MD PCP - General Internal Medicine 06/01/14 Jonny Lima MD [address] [place] [address] PCP - General Internal Medicine 07/13/18 11/22/18 Amira Shannon MD PCP - General Internal Medicine 11/23/18 Jonny Lima, 230 [facility] [place] [address] PCP - General Internal Medicine 01/13/19 documented as of this encounter
--- OUTSIDE RECORDS SUMMARY | 2024-06-08 15:09 | XMS_ITS | Encounter Summary ---
Author Organization [facility] Address [address] [place] [address] Care Team Providers Care Tanning Wheel Operator Name Role Phone Jonny Lima MD Primary Care Provider +1 -[phone] Encounter Details Date Type Department Care Team Description 07/08/2022 Transfer Records Medical Records [address] [place] [address] Gastroenterology, [facility] Social History Tobacco Use Types Packs/Day Years [...] on filedocumented in this encounter Care Teams Tanning Wheel Operator Relationship Specialty Start Date End Date Jonny Lima MD [address] [place] [address] PCP - General Internal Medicine 01/13/19 documented as of this encounter
--- OUTSIDE RECORDS SUMMARY | 2024-06-08 15:09 | XMS_ITS | Encounter Summary ---
Author Organization [facility] Address [address] [place] [address] Care Team Providers Care Dialysis Biomed Technician Name Role Phone Amira Shannon MD Primary Care Provider Unavailable Jonny Lima MD Primary Care Provider +1 [phone] Aimra Shannon MD Primary Care Provider Unavailable Jonny Lima MD Primary Care Provider +1 -[phone] Encounter Details Date Type Department Care Team Description 09/21/2016 Orders Only Adult Medicine - [address] [address] Harris Solomon PA-C [address] [place] [address] Elevated blood pressure Social History Tobacco Use Types Packs/Day Years [...] on file documented as of this encounter Procedures Procedure Name Priority Date/Time Associated Diagnosis Comments AMB BLOOD PRESSURE MONITORING Routine 03/19/2016 Elevated blood pressure documented in this encounter Results * AMB BLOOD PRESSURE MONITORING (03/19/2016) Harris Solomon PA-C OUTSIDE CARDIOLOGY documented in this encounter Visit Diagnoses Diagnosis Elevated blood pressure Elevated blood pressure reading without diagnosis of hypertension documented in this encounter Care Teams Dialysis Biomed Technician Relationship Specialty Start Date End Date HeatherAmira Mena MD PCP - General Internal Medicine 06/01/14 Jonny Lima, [address] [place] [address] PCP - General Internal Medicine 07/13/18 11/22/18 Amira Shannon MD PCP - General Internal Medicine 11/23/18 Jonny Lima, [address] [place] [address] PCP - General Internal Medicine 01/13/19 documented as of this encounter
--- OUTSIDE RECORDS SUMMARY | 2024-06-08 15:09 | XMS_ITS | Encounter Summary ---
Author Organization [facility] Address [address] [place] [address] Care Team Providers Care Train Brake Operator Name Role Phone Jonny Lima MD Primary Care Provider +1 -[phone] Reason for Visit * Reason Comments E-prescribe Rx Request Encounter Details Date Type Department Care Team Description 04/28/2019 Refill Adult Medicine - [address] [id number] Candice Bustillos PA-C E-prescribe Rx Request Social History Tobacco Use [...] encounter Miscellaneous Notes * Telephone Encounter - Madyson Raúl - 04/28/2019 11:35 AM EDT Patient would like script to be: E-PRESCRIBED/FAXED TO PHARMACY WHEN WAS THE PATIENT'S LAST APPOINTMENT IN ADULT MEDICINE? 03/29/2019 WHEN WAS THE LAST TIME THE PATIENT SAW THEIR PCP? Same as above Does patient have an upcoming appointment? no (THE MEDICATION REQUESTED IS ON THE MED [...] N/A Patients current insurance carrier is: Payor: MITULRamamia PLAN / Plan: DIRECT Refund ExchangeBRANDEN $2000 $50/$75/ Product Type: HMO [id number] documented in this encounter Plan of Treatment Not on file documented as of this encounter Visit Diagnoses Not on filedocumented in this encounter Care Teams Train Brake Operator Relationship Specialty Start Date End Date Jonny Lima MD [address] [place] [address] PCP - General Internal Medicine 01/13/19 documented as of this encounter
--- OUTSIDE RECORDS SUMMARY | 2024-06-08 15:09 | XMS_ITS | Encounter Summary ---
Author Organization [facility] Address [address] [place] [address] Care Team Providers Care Ui Software Developer Name Role Phone Jonny Lima MD Primary Care Provider +1 [phone] Encounter Details Date Type Department Care Team Description 05/27/2021 Orders Only Adult Medicine - [place] [address] [place] [address] Jonny Lima MD [address] [place] [address] Cellulitis of right lower limb (Primary Dx); Altered mental status, unspecified altered mental status type; Cellulitis, unspecified cellulitis site; Alcohol dependence, uncomplicated (HCC) Social History Tobacco Use Types Packs/Day Years [...] suspected to have Coronavirus/COVID-19? No / Unsure 05/07/2021 1:39 PM EDT documented as of this encounter Plan of Treatment Not on file documented as of this encounter Visit Diagnoses Diagnosis Cellulitis of right lower limb- Primary Altered mental status, unspecified altered mental status type Cellulitis, unspecified cellulitis site Alcohol dependence, uncomplicated (HCC) documented in this encounter Care Teams Ui Software Developer Relationship Specialty Start Date End Date Jonny Lima, [address] [place] [address] PCP - General Internal Medicine 01/13/19 documented as of this encounter
--- OUTSIDE RECORDS SUMMARY | 2024-06-08 15:09 | XMS_ITS | Encounter Summary ---
Author Organization 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
--- OUTSIDE RECORDS SUMMARY | 2024-06-08 15:09 | XMS_ITS | Encounter Summary ---
Author Organization [facility] Address [address] [place] [address] Care Team Providers Care Pharmacy Helper Name Role Phone Jonny Lima MD Primary Care Provider [phone] [phone] Encounter Details Date Type Department Care Team Description 07/20/2023 Orders Only Medical Records [address] [place] [address] Deny Reis DO [address] [facility] [address] [facility] [place] [address] Social History Tobacco Use Types Packs/Day Years [...] Procedure Name Priority Date/Time Associated Diagnosis Comments OUTSIDE COLONOSCOPY Routine 07/20/2023 documented in this encounter Results * OUTSIDE COLONOSCOPY (07/20/2023) Deny Reis DO RADIOLOGY documented in this encounter Visit Diagnoses Not on filedocumented in this encounter Care Teams Pharmacy Helper Relationship Specialty Start Date End Date Jonny Lima MD [address] [place] [address] PCP - General Internal Medicine 01/13/19 documented as of this encounter
--- OUTSIDE RECORDS SUMMARY | 2024-06-08 15:09 | XMS_ITS | Encounter Summary ---
Author Organization [facility] Address [address] [place] [address] Care Team Providers Care Production Bow Maker Name Role Phone Jonny Lima MD Primary Care Provider [phone] [phone] Reason for Visit * Reason Comments E-prescribe Rx Request Encounter Details Date Type Department Care Team Description 01/04/2021 Refill Adult Medicine - [place] [address] [place], [place] [id number] Harris Solomon PA-C [address] [place] [address] E-prescribe Rx Request Social History Tobacco Use [...] encounter Miscellaneous Notes * Telephone Encounter - Le Khan M.A. - 01/07/2021 10:09 AM EST Return in about 4 months (around 01/13/2021). Pt was sent Qoturet message to book appt * Telephone Encounter - Madyson Olsen - 01/06/2021 3:56 PM EST Patient would like script to be: E-PRESCRIBED/FAXED TO PHARMACY WHEN WAS THE PATIENT'S LAST APPOINTMENT IN ADULT MEDICINE? 09/12/2020 WHEN WAS THE LAST TIME THE PATIENT SAW THEIR PCP? Same as above Does patient have an upcoming appointment? Patient was sent a My Chart request to set up an appointment as they are due. (THE MEDICATION REQUESTED IS ON THE MED LIST ABOVE) Did you check the Pharmacy information above?: YES Patient wants: 30 -day supply Is this a mail order prescription request ? YES If the refill is from a FAXED refill request what is the RX # listed on the fax? N/A Patients current insurance carrier is: Payor: MEDICARE-Zartis / Plan: MEDICARE-Zartis / Product Type: MEDICARE [id number] documented in this encounter Plan of Treatment Not on file documented as of this encounter Visit Diagnoses Not on filedocumented in this encounter Care Teams Production Bow Maker Relationship Specialty Start Date End Date Jonny Lima MD [address] [place] [address] PCP - General Internal Medicine 01/13/19 documented as of this encounter
--- OUTSIDE RECORDS SUMMARY | 2024-06-08 15:09 | XMS_ITS | Encounter Summary ---
Author Organization [facility] Address [address] [place] [address] Care Team Providers Care Spindle Maker Name Role Phone Amira Shannon MD Primary Care Provider Unavailable Jonny Lima MD Primary Care Provider +1 -[phone] Amira Shannon MD Primary Care Provider Unavailable Jonny Lima MD Primary Care Provider +1 -[phone] Encounter Details Date Type Department Care Team Description 01/13/2017 [facility] Medical Records [address] [place] [address] Social History Tobacco Use Types Packs/Day Years [...] on filedocumented in this encounter Care Teams Spindle Maker Relationship Specialty Start Date End Date Amira Shannon MD PCP - General Internal Medicine 06/01/14 Jonny Lima MD [address] [place] [address] PCP - General Internal Medicine 07/13/18 11/22/18 Amira Shannon MD PCP - General Internal Medicine 11/23/18 Jonny Lima MD 230 [facility] [place] [address] PCP - General Internal Medicine 01/13/19 documented as of this encounter
--- OUTSIDE RECORDS SUMMARY | 2024-06-08 15:09 | XMS_ITS | Encounter Summary ---
Author [facility] Address [address] [place] [address] Care Team Providers Care Wildlife Control Agent Name Role Phone Amira Shannon MD Primary Care Provider Unavailable Jonny Lima MD Primary Care Provider [phone] [phone] Amira Shannon MD Primary Care Provider Unavailable Jonny Lima MD Primary Care Provider +1 -[phone] Reason for Visit * Reason Onset Date Comments er follow up 08/19/2017 Encounter Details Date Type Department Care Team Description 08/19/2017 Telephone Adult Medicine - [address] [address] Amira Shannon MD er follow up Social History Tobacco Use Types Packs/Day Years [...] * Telephone Encounter - Alvina Stearns - 08/19/2017 10:13 AM EDT ER follow-up appointment booked YES If ER or UC follow up, can be booked with APC or MD. If hospital admission follow up MUST be booked with a physician Appointment time: 200PM Provider visit is scheduled with: Jaymie Martel PA-C Hospital/ center patient was treated at: [facility] Date of visit: 08/17/17 Was this only an ER/UC visit or was the patient admitted to the hospital? ER visit onlyER visit only If patient was admitted what was the date of discharge? Reason/diagnosis for visit or stay: Back pain Was visit or stay related to an injury? NO If yes, what was the date of injury (DOI)? N/A If yes, was the injury due to N/A Tests performed: Lab: YES X-ray: NO EKG: NO Other tests. If yes, what?; Ultra sound documented in this encounter Plan of Treatment Not on file documented as of this encounter Visit Diagnoses Not on filedocumented in this encounter Care Teams Wildlife Control Agent Relationship Specialty Start Date End Date Amira Shannon MD PCP - General Internal Medicine 06/01/14 Jonny Lima, [address] [place] [address] PCP - General Internal Medicine 07/13/18 11/22/18 Amira Shannon MD PCP - General Internal Medicine 11/23/18 Jonny Lima MD [address] [place] [address] PCP - General Internal Medicine 01/13/19 documented as of this encounter
--- OUTSIDE RECORDS SUMMARY | 2024-06-08 15:09 | XMS_ITS | Encounter Summary ---
Author Organization [facility] Address [address] [place] [address] Care Team Providers Care Business Investor Name Role Phone Jonny Lima MD Primary Care Provider +1 -[phone] Encounter Details Date Type Department Care Team Description 05/11/2023 Orders Only Gastroenterology - [address] [place] [address] Catherine Linares DScPAS Alcoholic cirrhosis of liver with ascites (HCC) Social History Tobacco Use Types Packs/Day [...] on file documented as of this encounter Progress Notes * Shannon Palmer - 05/18/2023 9:08 AM EDT I will send msg. documented in this encounter Plan of Treatment Not on file documented as of this encounter Procedures Procedure Name Priority Date/Time Associated Diagnosis Comments SONO ABDOMEN COMPLETE Routine 05/11/2023 Alcoholic cirrhosis of liver with ascites (HCC) documented in this encounter Results * SONO ABDOMEN COMPLETE (05/11/2023) Catherine Linares DScPAS ULTRASOUND documented in this encounter Visit Diagnoses Diagnosis Alcoholic cirrhosis of liver with ascites (HCC) Alcoholic cirrhosis of liver documented in this encounter Care Teams Business Investor Relationship Specialty Start Date End Date Jonny Lima MD [address] [place] [address] PCP - General Internal Medicine 01/13/19 documented as of this encounter
--- OUTSIDE RECORDS SUMMARY | 2024-06-08 15:09 | XMS_ITS | Encounter Summary ---
Author Organization [facility] Address [address] [place] [address] Care Team Providers Care Film Cleaner Name Role Phone Amira Shannon MD Primary Care Provider Unavailable Jonny Lima MD Primary Care Provider +1 -[phone] Amira Shannon MD Primary Care Provider Unavailable Jonny Lima MD Primary Care Provider +1 -[phone] Encounter Details Date Type Department Care Team Description 12/28/2015 Investment Banker Report Medical Records [address] [place] [address] Abstract, Provider Social History Tobacco Use Types Packs/Day Years [...] on filedocumented in this encounter Care Teams Film Cleaner Relationship Specialty Start Date End Date Amira Shannon MD PCP - General Internal Medicine 06/01/14 Jonny Lima MD [address] [place] [address] PCP - General Internal Medicine 07/13/18 11/22/18 Amira Shannon MD PCP - General Internal Medicine 11/23/18 Jonny Lima MD [address] [facility] [place] [address] PCP - General Internal Medicine 01/13/19 documented as of this encounter
--- OUTSIDE RECORDS SUMMARY | 2024-06-08 15:09 | XMS_ITS | Encounter Summary ---
Author Organization [facility] Address [address] [place] [address] Care Team Providers Care Sander Hand Name Role Phone Jonny Lima MD Primary Care Provider +1 -[phone] Encounter Details Date Type Department Care Team Description 08/06/2022 Telephone Adult Medicine - [address] [address] Harris Solomon PA-C [address] [place] [address] Social History Tobacco Use Types Packs/Day Years [...] suspected to have Coronavirus/COVID-19? No / Unsure 07/29/2022 10:49 AM EDT documented as of this encounter Miscellaneous Notes * Telephone Encounter - Amina Shankar M.A. - 08/06/2022 3:45 PM EDT This appt is booked wrong it was supposed to be for chronic care management which is a physical exam 30 minutes. Please check and reschedule to a physical slot. thanks documented in this encounter Plan of Treatment Not on file documented as of this encounter Visit Diagnoses Not on filedocumented in this encounter Care Teams Sander Hand Relationship Specialty Start Date End Date Jonny Lima MD [address] [place] [address] PCP - General Internal Medicine 01/13/19 documented as of this encounter
--- OUTSIDE RECORDS SUMMARY | 2024-06-08 15:09 | XMS_ITS | Encounter Summary ---
Author Organization [facility] Address [address] [place] [address] Care Team Providers Care Electroplating Sales Representative Name Role Phone Radhika-Amira Mena MD Primary Care Provider Unavailable Jonny Lima MD Primary Care Provider +1 -[phone] Amira Shannon MD Primary Care Provider Unavailable Jonny Lima MD Primary Care Provider +1 -[phone] Encounter Details Date Type Department Care Team Description 02/18/2018 Telephone Adult Medicine - [address] [address] Jaymie Kumari PA-C [address] [place] [address] Social History Tobacco Use Types Packs/Day Years [...] encounter Miscellaneous Notes * Telephone Encounter - Vanessa Shah M.A. - 02/18/2018 9:25 AM EST Spoke with patient and informed message below. * Telephone Encounter - Jaymie Kumari PA-C - 02/18/2018 9:18 AM EST Please call patient and advise for him to return to check his iron levels. Lab already in * Telephone Encounter - Jaymie Kumari PA-C - 02/18/2018 9:18 AM EST ----- Message from Dread Kessler LPN sent at 02/17/2018 4:31 PM EST ----- Results reviewed. Can wait for provider return. documented in this encounter Plan of Treatment Not on file documented as of this encounter Results * (ABNORMAL) IRON/TIBC (02/23/2018 3:50 PM EST) UNSATURATED IRON BINDING CAP 38 ug/dl 02/24/2018 8:57 AM [facility] TIBC 170 162 - 506 ug/dL 02/24/2018 8:57 AM [facility] IRON 132 50 - 160 ug/dL 02/24/2018 8:57 AM [facility] % FE SATURATION 78(H) 20 - 50 % 9 8:57 AM [facility] 02/23/2018 3:50 PM EST 02/23/2018 3:52 PM EST Jaymie Kumari PA-C LAB Performing Organization Address City/State/[facility] Co de Phone Number [facility] [address] [place] [address] documented in this encounter Visit Diagnoses Diagnosis Anemia, unspecified type- Primary documented in this encounter Care Teams Electroplating Sales Representative Relationship Specialty Start Date End Date Radhika-Amira Mena MD PCP - General Internal Medicine 06/01/14 Jonny Lima MD [address] [place] [address] PCP - General Internal Medicine 07/13/18 11/22/18 Amira Shannon MD PCP - General Internal Medicine 11/23/18 Jonny Lima, [address] [place] [address] PCP - General Internal Medicine 01/13/19 documented as of this encounter
--- OUTSIDE RECORDS SUMMARY | 2024-06-08 15:09 | XMS_ITS | Encounter Summary ---
Author Organization [employer] [facility] Address [address] [place] [address] Care Team Providers Care Rn Cardiology Name Role Phone Jonny Lima MD Primary Care Provider +1 -[phone] Reason for Visit * Reason Comments E-prescribe Rx Request Encounter Details Date Type Department Care Team Description 09/01/2021 Refill Adult Medicine [facility] [address] [place] [address] Harris Solomon PA-C [address] [place] [address] E-prescribe Rx Request Social History Tobacco Use [...] suspected to have Coronavirus/COVID-19? No / Unsure 08/07/2021 1:23 PM EDT documented as of this encounter Plan of Treatment Not on file documented as of this encounter Visit Diagnoses Not on filedocumented in this encounter Care Teams Rn Cardiology Relationship Specialty Start Date End Date Jonny Lima MD [address] [place] [address] PCP - General Internal Medicine 01/13/19 documented as of this encounter
--- OUTSIDE RECORDS SUMMARY | 2024-06-08 15:09 | XMS_ITS | Encounter Summary ---
Author Organization [facility] Address [address] [place] [address] Care Team Providers Care Intel Analyst Name Role Phone Jonny Lima MD Primary Care Provider +1 -[phone] Reason for Visit * Reason Onset Date Comments medication problems 09/18/2020 Encounter Details Date Type Department Care Team Description 09/18/2020 Telephone Adult Medicine - [place] [address] [place] [address] Jonny Lima MD [address] [place] [address] medication problems Social History Tobacco Use Types Packs/Day Years [...] or suspected to have Coronavirus / COVID-19? Unable to assess 09/11/2020 3:11 PM EDT documented as of this encounter Miscellaneous Notes * Telephone Encounter - Kathrine Durand - 09/18/2020 1:49 PM EDT Patient would like their sildenafil (Viagra) 100 MG tablet prescription sent [facility] Per patient it can be emailed over. documented in this encounter Plan of Treatment Not on file documented as of this encounter Visit Diagnoses Not on filedocumented in this encounter Care Teams Intel Analyst Relationship Specialty Start Date End Date Jonny Lima MD [address] [place] [address] PCP - General Internal Medicine 01/13/19 documented as of this encounter
--- OUTSIDE RECORDS SUMMARY | 2024-06-08 15:09 | XMS_ITS | Encounter Summary ---
Author Organization [facility] Address [address] [place] [address] Care Team Providers Care Research And Development Chemist Name Role Phone Jonny Lima MD Primary Care Provider [phone] Reason for Visit * Reason Onset Date Comments TEST RESULTS 02/06/2019 Encounter Details Date Type Department Care Team Description 02/06/2019 Telephone Adult Medicine - [employer] [address] [place], [place] [id number] Jonny Lima MD [address] [place] [address] TEST RESULTS Social History Tobacco Use Types Packs/Day Years [...] encounter Miscellaneous Notes * Telephone Encounter - Jonny Lima MD - 02/06/2019 5:27 PM EST Unable to reach patient left patient a message that his echocardiogram showed normal left ventricular function and not explanation for Patient retaining fluid. will discuss further on the next visit.if patient calls please relay the message * Telephone Encounter - Enma Adhikari M.A. - 02/06/2019 4:12 PM EST Echo results in scanning Pt requesting for results. * Telephone Encounter - Sunitha Cortes - 02/06/2019 3:29 PM EST Inform patient: ANY URGENT OR ABNORMAL RESULTS WIILL RESULT IN A CALL BACK TO THE PATIENT DHARA. Type of test: :Echo Date test was performed: 01/30/19 Where was the test performed: [facility] Who ordered this test?: Dr. Mueller Is the doctor here today?: YES Can the message wait until the doctor returns?: YES IF PATIENT'S PCP IS NOT IN INSTRUCT PATIENT THAT THEY WILL RECEIVE A CALL BACK WHEN THE PCP IS IN THE OFFICE NEXT. documented in this encounter Plan of Treatment Not on file documented as of this encounter Visit Diagnoses Not on filedocumented in this encounter Care Teams Research And Development Chemist Relationship Specialty Start Date End Date Jonny Liam MD [address] [place] [id number] PCP - General Internal Medicine 01/13/19 documented as of this encounter
--- OUTSIDE RECORDS SUMMARY | 2024-06-08 15:09 | XMS_ITS | Encounter Summary ---
Author Organization [facility] Address [address] [place] [address] Care Team Providers Care Operations Chief Name Role Phone Jonny Lima MD Primary Care Provider [phone] Encounter Details Date Type Department Care Team Description 04/01/2022 Granular Operator Report Medical Records [address] [place] [address] Jeramie Rey Social History Tobacco Use Types Packs/Day Years [...] suspected to have Coronavirus/COVID-19? No / Unsure 03/24/2022 7:46 AM EST documented as of this encounter Plan of Treatment Not on file documented as of this encounter Visit Diagnoses Not on filedocumented in this encounter Care Teams Operations Chief Relationship Specialty Start Date End Date Jonny Lima, [address] [place] [address] PCP - General Internal Medicine 01/13/19 documented as of this encounter
--- OUTSIDE RECORDS SUMMARY | 2024-06-08 15:09 | XMS_ITS | Encounter Summary ---
[facility] Organization [facility] Address [address] [place] [address] Care Team Providers Care Sales Representative Publications Name Role Phone Jonny Lima MD Primary Care Provider [phone] Encounter Details Date Type Department Care Team Description 04/20/2021 Hospital Medical Records [address] [place] [address] Neel [place] Social History Tobacco Use Types Packs/Day Years [...] PM EST documented as of this encounter Plan of Treatment Not on file documented as of this encounter Visit Diagnoses Not on filedocumented in this encounter Care Teams Sales Representative Publications Relationship Specialty Start Date End Date Jonny Lima MD [address] [place] [id number] PCP - General Internal Medicine 01/13/19 documented as of this encounter
--- OUTSIDE RECORDS SUMMARY | 2024-06-08 15:09 | XMS_ITS | Encounter Summary ---
Author Organization [facility] Address [address] [place] [address] Care Team Providers Care School Bus Mechanic Name Role Phone Amira Shannon MD Primary Care Provider Unavailable Jonny Lima MD Primary Care Provider [phone] Amira Shannon MD Primary Care Provider Unavailable Jonny Lima MD Primary Care Provider [phone] Encounter Details Date Type Department Care Team Description 07/29/2015 Orders Only Medical Records [address] [place] [address] Zainab Casarez FNP [address] [place] [address] Social History Tobacco Use Types Packs/Day Years [...] Name Priority Date/Time Associated Diagnosis Comments OUTSIDE SLEEP STUDY Routine 07/24/2015 documented in this encounter Results * OUTSIDE SLEEP STUDY (07/24/2015) Zainab TH[facility]PSON PULMONOLOGY documented in this encounter Visit Diagnoses Not on filedocumented in this encounter Care Teams School Bus Mechanic Relationship Specialty Start Date End Date Amira Shannon, MD PCP - General Internal Medicine 06/01/14 Jonny Lima, [address] [place] [address] PCP - General Internal Medicine 07/13/18 11/22/18 Radhika-Amira Mena MD PCP - General Internal Medicine 11/23/18 Jonny Lima, [address] [place] [address] PCP - General Internal Medicine 01/13/19 documented as of this encounter
--- OUTSIDE RECORDS SUMMARY | 2024-06-08 15:09 | XMS_ITS | Clinical Summary ---
Author Organization [facility] [address] Address [address] [place] [address] Phone Care Team Providers Care Pastoral Counselor Name Role Phone Le Lima MD Primary Care Prov ider Allergies No known active allergies Medications albuterol HFA (PROAIR HFA ; PROVENTIL HFA ; VENTOLIN HFA) 90 mcg/actuation inhaler INHALE 2 PUFFS INTO THE LUNGS FOUR TIMES DAILY NEEDED FOR COUGH OR WHEEZING OR SHORTNESS OF BREATH 3 Active azelastine (ASTELIN) 137 mcg (0.1 %) nasal spray Administer 1 spray into affected nostril(s). 1 Active diclofenac (VOLTAREN) 1 % topical gel Apply 1 each topically. 4 Active omeprazole (PriLOSEC) [address] capsule Take 1 capsule (40 mg total) by mouth 1 (one) time each day. 4 Active MULTIVITAMIN ORAL Take 1 tablet by mouth 1 (one) time each day. Active omega 3-grj-hbu-fish oil 35-25-5-113.5 mg tablet,chewable Chew 1 capsule. Active CHOLECALCIFEROL, VITAMIN D3, ORAL Take 50 mcg by mouth. Active carvediloL (COREG) 3.125 mg tablet TAKE 1 TABLET BY MOUTH TWICE DAILY WITH MEALS 60 tablet 5 4 Active gabapentin (NEURONTIN) 300 mg capsule Take 1 capsule (300 mg total) by mouth. 4 Active melatonin 3 mg tablet TAKE 3 TABLET BY MOUTH AT BEDTIME 4 Active mirtazapine (REMERON) 7.5 mg tablet Take 1 tablet (7.5 mg total) by mouth. at bedtime. 4 Active carvediloL (COREG) 12.5 mg tablet Take 1 tablet (12.5 mg total) by mouth 2 (two) times a day with meals. Active amphetamine-dextr oamphetamine XR (ADDERALL XR) 20 mg 24 hr capsuleIndication s:Attention deficit hyperactivity disorder (ADHD), unspecified ADHD type Take 1 capsule (20 mg total) by mouth 2 (two) times a day. Max Daily Amount: 40 mg 60 each 4 Active hydrOXYzine pamoate (VISTARIL) 50 mg capsuleIndication s:Attention deficit hyperactivity disorder (ADHD), unspecified ADHD type Take 1 capsule (50 mg total) by mouth at bedtime as needed for anxiety. at bedtime 90 capsule 1 4 025 Active budesonide-formot Richar (SYMBICORT) 80-4.5 mcg/actuation inhalerIndication s:Chronic obstructive pulmonary disease, unspecified COPD type (CMS/HCC V24, CMS/HCC V28) Inhale 2 puffs by mouth 2 (two) times a day. Rinse mouth with water after use to reduce aftertaste and incidence of candidiasis. Do not swallow. 1 each 2 5 026 Active Additional Information Patient not taking.Reported on 05/25/2024 sertraline (ZOLOFT) 100 mg tablet TAKE 1 AND 1/2 TABLETS BY MOUTH DAILY 45 tablet 1 5 Active sertraline (ZOLOFT) 100 mg tablet Take 1.5 tablets (150 mg total) by mouth. 4 Active spironolactone (ALDACTONE) 50 mg tablet Take 1 tablet (50 mg total) by mouth 1 (one) time each day. 90 tablet 1 5 Active furosemide (LASIX) 40 mg tablet TAKE 1 TABLET BY MOUTH TWICE DAILY 60 tablet 4 5 Active methylphenidate 27 mg ER tablet Take 1 tablet (27 mg total) by mouth 2 (two) times a day. Max Daily Amount: 54 mg 5 Active Wixela Inhub 250-50 mcg/dose diskus inhaler Inhale 1 puff by mouth every 12 (twelve) hours if needed. 5 Active lactulose (CHRONULAC) solution Take 30 mL (20 g total) by mouth 2 (two) times a day. 1800 mL 3 5 Active Active Problems Problem Noted Date Diagnosed Date Simple chronic bronchitis ([facility] V24, [facility] V28) 05/12/2024 Idiopathic pulmonary fibrosis ([facility] V24, [facility] V28) 05/12/2024 Secondary esophageal varices without bleeding ([facility] V24, [facility] V28) 07/20/2023 Elevated LDL cholesterol level 09/15/2021 Elevated hemoglobin A1c 09/15/2021 Post-nasal drip 09/12/2020 Unspecified abnormal involuntary movements 05/08 Depression 05/08/2020 Reflux esophagitis 08/12/2018 Erosive gastropathy 08/12/2018 Overview (11/24/2023): Non bleeding erosive gastropathy on EGD Alcoholic cirrhosis of liver with ascites ([facility] V24, [facility] V28) 04/14/2018 Back pain without radiculopathy 09/20/2017 Overview (11/24/2023): Had microdiskectomy 2017 dr Chandler Hypertension 08/27/2016 Overview (11/24/2023): [address] Mosqueda on 03/19/[address] Mosqueda adjusted medications Report sent to scan Obstructive sleep apnea 11/26/2015 Overview (11/24/2023): ResScan 11/30/2015 to 12/29/2015. CPAP@ 6-16/Average 11.6/Max 12.3. 30% compliant with using the machine for >4 hours/day. Average use is 4 hours a night with AHI 0.9. Colon polyp 06/16/2015 Overview (11/24/2023): [place] done 04/2015 Dr Villanueva at [facility]. Advised 5 yr follow up Factor 5 Leiden mutation, heterozygous ([facility] V24) 07/19/2014 Overview (11/24/2023): consider Lovenox postoperatively if needed any surgery Alcohol abuse, in remission 03/01/2013 Substance abuse in remission ([facility]/HCC V24, [facility]/ CC V28) 03/01/2013 Prepatellar bursitis of right knee 10/24/2012 Overview (11/24/2023): Hemorrhagic, post-traumatic, saw [facility] 10/06/12, suportive care with spider knee pad Obesity, unspecified 05/09/2009 Resolved Problems Problem Noted Date Diagnosed Date Resolved Date Polysubstance dependence, no n-opioid, in remission ([facility] V24, [facility] V28) 09/15/2021 Encounters Date Type Department Care Team Description 06/02/2024 4:14 PM EDT - 06/02/2024 11:59 PM EDT Hospital Encounter [facility] [address] [place] [phone] Alcoholic cirrhosis of liver without ascites ([facility]/HCC V24, [facility]/HCC V28) Discharge Disposition: Home or Self Care 06/02/2024 3:45 PM EDT Lab Draw Station - [address] [phone] Alcoholic cirrhosis of liver without ascites ([facility]/HCC V24, [facility]/HCC V28) 05/25/2024 11:30 AM EDT Office Visit Gastroenterology [facility] [address] [phone] Catherine Linares PA Alcoholic cirrhosis of liver without ascites ([facility]/HCC V24, CMS/HCC V28) (Primary Dx); Alcohol abuse, in remission; Secondary esophageal varices without bleeding (CMS/HCC V24, CMS/HCC V28); Polyp of colon, unspecified part of colon, unspecified type 05/25/2024 Telephone Gastroenterology [facility] 175 [facility] [address] [phone] Catherine Kemp PA 05/04/2024 Telephone Adult Medicine [place] [address] [place] [phone] Le Hernández MD Forms/questionnaires (PVTA) from Last 3 Months Immunizations Name Administration Dates Next Due Influenza Quadravalent, MDCK , 0.5ml, preservative free (Flucelvax) 6mo and older 12/16/2021,03/03/2021,02/02/2020 Influenza trivalent, with pr eservative (Fluzone; Afluria) 6mo and older 12/24/2011 Pneumococcal conjugate 13 va lent (Prevnar 13, PCV13) 2mo and older 02/02/2020 Td, Unspecified 08/01/2004 Tdap Tetanus diptheria acell ular pertussis (Boostrix; Adacel) 7yo and older 06/28/2022,12/24/2011 Surgical History Surgery Date Site/Laterality Comments COLONOSCOPY 03/14/2010 PROCEDURE: HISTORICAL COLONOSCOPY; COMMENT: normal; repeat in five years ROTATOR CUFF REPAIR 12/2009 PROCEDURE: HISTORICAL ROTATOR CUFF REPAIR; COMMENT: right, LULY Cross HERNIA REPAIR 1994 PROCEDURE: REPAIR INGUINAL HERNIA COLONOSCOPY 05/07/2015 PROCEDURE: HISTORICAL COLONOSCOPY; COMMENT: [facility]; hemorrhoids and hyperplastic polyp; repeat in 5 yrs under propofol UPPER GASTROINTESTINAL ENDOSCOPY 07/13/2018 PROCEDURE: ID UPPER GI ENDOSCOPY PERFORMED; COMMENT: Mild erosive antral gastritis; [place] grade A reflux esophagitis. (Has been on daily treatment with Aleve) gastric biopsies: Mild reactive gastropathy, no active inflammation. Medical History Medical History Date Comments Alcohol abuse 05/09/2009 DX:Alcohol abuse Obesity, unspecified 05/09/2009 DX:Obesity, unspecified Factor 5 Leiden mutation, heterozygous (CMS/HCC V24) 07/19/2014 DX:Factor 5 Leiden mutation , heterozygous (HCC) Colon polyp 06/16/2015 DX:Colon polyp; COMMENT: [place] done 04/2015 Dr Villanueva at [facility]. Advised 5 yr follow up Back pain without radiculopathy 09/20/2017 DX:Back pain without radiculopathy; COMMENT: Had microdiskectomy 2017 dr Chandler Reflux esophagitis 08/12/2018 DX:Reflux eso phagitis Erosive gastropathy 08/12/2018 DX:Erosive g astropathy; COMMENT: Non bleeding erosive gastropathy on EGD Idiopathic pulmonary fibrosi s ([facility] V24, [facility] V28) 05/12/2024 Family History Medical History Relation Name Comments Heart attack Father MS age 41 yr, d ied 54 yr, CABG, etoh Arthritis Mother h/o DVT on coum rekha Colon polyps Sister 1 older sister Other: healthy Sister 2 younger siste r Colon cancer Neg Hx Relation Name Status Comments Father (Age 54) Maternal Grandfather Maternal Grandmother Mother (Age 86) Paternal Grandfather Paternal Grandmother Sister 1 Sister 2 Sister 3 Alive X2 Son Alive X2 Social History Tobacco Use Types Packs/Day Years Used Date Smoking Tobacco: Never Smokeless Tobacco: Never Tobacco Cessation:Counseling Given: Not Answered Alcohol Use Standard Drinks/Week Comments No 0 (1 standard drink = 0.6 oz pur e alcohol) Sex and Gender Information Value Date Recorded Sex Assigned at Not on file Legal Sex Male 8:14 AM EST Gender Identity Not on file Sexual Orientation Not on file Obstetrics History Last Filed Vital Signs Vital Sign Reading Time Taken Comments Blood Pressure 102/56 05/25/2024 11:23 AM EDT Pulse 78 02/18/2024 7:27 AM EST Temperature 36.6 ??C (97.9 ??F) 02/18/2024 7:27 AM ES T Respiratory Rate - - Oxygen Saturation - - Inhaled Oxygen Concentration - - Weight 113 kg (250 lb) 06/02/2024 5:00 PM EDT Height 170.2 cm (5' 7 ) 05/25/2024 11:23 AM EDT Body Mass Index 39.16 05/25/2024 11:23 AM EDT Plan of Treatment Upcoming Encounters Date Type Department Care Team (Late st Contact Info) Description 06/30/2024 1:15 PM EDT Office Visit Adult Medicine - [place] [address] [place] [phone] Le Lima MD [address] [place] [address] 10/23/2024 11:00 AM EDT Appointment [facility] [address] [place] [phone] Deny Reis DO 175 [facility] [address] [place] [address] 11/27/2024 11:30 AM EDT Office Visit Gastroenterology - [place] 175 [facility] 175 [facility] [address] [place] [phone] Catherine Linares PA 175 [facility] [address] [place] [address] Health Maintenance Due Date Last Done Comments Hepatitis A Vaccines (1 of 2 - Risk 2-dose series) 1977 Zoster Vaccines (1 of 2) 2008 Hepatitis B Vaccines (1 of 3 - Risk 3-dose series) 2018 RSV Immunization Adult Patients (1 - Risk 60-74 years 1-dose series) 2018 Pneumococcal Vaccine: 50+ Years (2 of 2 - PPSV23) 03/29/2020 02/02/2020 Pneumococcal Vaccine: Pediatrics (0 to 5 Years) and At-Risk Patients (6 to 64 Years) (2 of 2 - PPSV23) 03/29/2020 02/02/2020 Depression Screening 01/18/2022 Hepatitis C Screening 01/18/2022 Medicare Annual Wellness Visit 01/18/2022 Social Influencers of Health Screening 01/18/2022 COVID-19 Vaccine ( season) 2023 06/01/2020, 05/10/2020 Falls Risk Assessment 10/23/2023 Influenza Vaccine (Season Ended) 2024 11/26/2022, 12/16/2021, 03/03/2021, Additional history exists Hypertension/CHF/CAD Annual BMP Blood Test 06/02/2025 06/02/2024, 07/26/2023 Cholesterol Screening (Lipid Panel) 09/15/2026 09/15/2021 Colorectal Cancer Screening: Colonoscopy 07/19/2028 07/20/2023 DTaP,Tdap,and Td Vaccines (4 - Td or Tdap) 06/28/2032 06/28/2022, 12/24/2011, 08/01/2004 HIB Vaccines Aged Out No longer eligi ble based on patient's age to complete this topic HPV Vaccines Aged Out No longer eligi ble based on patient's age to complete this topic IPV Vaccines Aged Out No longer eligi ble based on patient's age to complete this topic MMR Vaccines Aged Out No longer eligi ble based on patient's age to complete this topic Meningococcal ACWY Vaccine Aged Out N o longer eligible based on patient's age to complete this topic Meningococcal B Vaccine Aged Out No l onger eligible based on patient's age to complete this topic RSV Immunization Patients Under 20 months Aged Out No longer eligible based on patient's age to complete this topic Varicella Vaccines Aged Out No longer eligible based on patient's age to complete this topic Procedures Procedure Name Priority Date/Time Associated Diagnosis Comments MR ABDOMEN WO AND W CONTRAST Routine 06/02/2024 5:51 PM EDT Alcoholic cirrhosis of liver without ascites (CMS/HCC V24, CMS/HCC V28) CBC WITH AUTO DIFFERENTIAL Routine 06/02/2024 3:53 PM EDT Alcoholic cirrhosis of liver without ascites (CMS/HCC V24, CMS/HCC V28) COMPREHENSIVE METABOLIC PANEL Routine 06/02/2024 3:53 PM EDT Alcoholic cirrhosis of liver without ascites (CMS/HCC V24, CMS/HCC V28) CBC AND DIFFERENTIAL Routine 06/02/2024 3:53 PM EDT Alcoholic cirrhosis of liver without ascites (CMS/HCC V24, CMS/HCC V28) AMMONIA Routine 06/02/2024 3:53 PM EDT Alcoholic cirrhosis of liver without ascites (CMS/HCC V24, CMS/HCC V28) ALPHA FETOPROTEIN TUMOR MARKER Routine 06/02/2024 3:53 PM EDT Alcoholic cirrhosis of liver without ascites (CMS/HCC V24, CMS/HCC V28) from Last 3 Months Results * MR Abdomen wo and w Contrast (06/02/2024 5:51 PM EDT) Anatomical Region Laterality Modality Body Magnetic Resonan ce 06/02/2024 5:41 PM EDT Impressions 06/02/2024 5:56 PM EDT Cirrhotic morphology of the liver. No suspicious focal liver lesion. Mild splenomegaly. No significant ascites. Upper abdominal venous collaterals. ?? -------- FINAL REPORT -------- Dictated By: Moses Nguyen Dictated Date: 06/02/2024 17:41 ET Assigned Physician: Moses Nguyen Reviewed and Electronically Signed By: Moses Nguyen Signed Date: 06/02/2024 17:56 ET Workstation ID: [id number] Transcribed By: Self Edit Transcribed Date: 06/02/2024 17:41 ET Narrative 06/02/2024 5:56 PM EDT EXAMINATION: MRI ABDOMEN WITHOUT AND WITH IV CONTRAST CLINICAL INFORMATION: Cirrhosis. ??Esophageal varices. COMPARISON: Portions of liver ultrasound 05/11/23 ?? TECHNIQUE: Anatomic and fluid sensitive MR sequences obtained on a 3 Argelia platform were used to examine the abdomen. ?? MRCP was not performed. Imaging before and after the IV administration of contrast. Amount of IV contrast: 20 mL Type of contrast: Dotarem Volume of contrast discarded: 0 mL FINDINGS: LIVER: The right lobe of the liver measures 11.9 cm. The liver contour is slightly irregular. ??There is widening of the interlobar fissure. ??The background hepatic signal is somewhat heterogeneous. There is no suspicious focal liver lesion. BILIARY TRACT: ??There is no cholelithiasis. ??No gallbladder wall thickening. ??No biliary dilation. MRCP: ??Not performed SPLEEN: The spleen measures 12.6 cm which is between one and 2 standard deviations above the mean expected. ??In overall volume the spleen is at least mildly enlarged. ??No focal abnormality. ?? PANCREAS: Normal; no mass or surrounding fluid. ?? ADRENAL GLANDS: Normal; no mass. ?? KIDNEYS: There is no dilation of the urinary collecting system on either side. ??No suspicious renal mass. ??The kidneys enhance symmetrically. ?? GASTROINTESTINAL TRACT: There is some increased enhancement around the distal esophagus which could be related to varices. ??No definite bowel wall thickening demonstrated. ?? ABDOMINAL WALL: No significant hernia is appreciated. ?? LYMPHOVASCULAR STRUCTURES AND FLUID: There is no abdominal aortic aneurysm. ??The portal vein enhances. There are upper abdominal venous collaterals. ?? MUSCULOSKELETAL: No acute or suspicious osseous abnormality. ?? VISUALIZED LOWER CHEST: No suspicious abnormality. ?? Procedure Note Moses Nguyen MD - 06/02/2024 EXAMINATION: MRI ABDOMEN WITHOUT AND WITH IV CONTRAST CLINICAL INFORMATION: Cirrhosis. Esophageal varices. COMPARISON: Portions of liver ultrasound 05/11/23 TECHNIQUE: Anatomic and fluid sensitive MR sequences obtained on a 3 Argelia platformwere used to examine the abdomen. MRCP was not performed. Imaging before and after the IV administration of contrast. Amount of IV contrast: 20 mL Type of contrast: Dotarem Volume of contrast discarded: 0 mL FINDINGS: LIVER: The right lobe of the liver measures 11.9 cm. The liver contour isslightly irregular. There is widening of the interlobar fissure. Thebackground hepatic signal is somewhat heterogeneous. There is no suspicious focal liver lesion. BILIARY TRACT: There is no cholelithiasis. No gallbladder wallthickening. No biliary dilation. MRCP: Not performed SPLEEN: The spleen measures 12.6 cm which is between one and 2 standarddeviations above the mean expected. In overall volume the spleen is atleast mildly enlarged. No focal abnormality. PANCREAS: Normal; no mass or surrounding fluid. ADRENAL GLANDS: Normal; no mass. KIDNEYS: There is no dilation of the urinary collecting system on eitherside. No suspicious renal mass. The kidneys enhance symmetrically. GASTROINTESTINAL TRACT: There is some increased enhancement around thedistal esophagus which could be related to varices. No definite bowelwall thickening demonstrated. ABDOMINAL WALL: No significant hernia is appreciated. LYMPHOVASCULAR STRUCTURES AND FLUID: There is no abdominal aorticaneurysm. The portal vein enhances. There are upper abdominal venous collaterals. MUSCULOSKELETAL: No acute or suspicious osseous abnormality. VISUALIZED LOWER CHEST: No suspicious abnormality. IMPRESSION: Cirrhotic morphology of the liver. No suspicious focal liver lesion. Mild splenomegaly. No significant ascites. Upper abdominal venous collaterals. -------- FINAL REPORT -------- Dictated By: Moses Nguyen Dictated Date: 06/02/2024 17:41 ET Assigned Physician: Moses Nguyen Reviewed and Electronically Signed By: Moses Nguyen Signed Date: 06/02/2024 17:56 ET Workstation ID: [id number] Transcribed By: Self Edit Transcribed Date: 06/02/2024 17:41 ET Catherine CLAIRE IMG MRI PROCEDURES Final Resu lt * (ABNORMAL) CBC auto differential (06/02/2024 3:53 PM EDT) WBC 6.1 4.8 - 10.8 K/mcL LAB HEMETOLOGY METHOD 06/02/2024 4:22 PM EDT [facility] RBC 4.70 4.50 - 5.50 M/mcL LAB [facility] Hemoglobin 13.4(L) 13.5 - 17.5 g/dL LAB HEMETOLOGY METHOD 06/02/2024 4:22 PM [facility] Hematocrit 41.0(L) 42.0 - 54.0 % LAB HEMETOLOGY METHOD 06/02/2024 4:22 PM [facility] MCV 87.6 79.0 - 98.0 FL LAB HEMETOLOGY METHOD 06/02/2024 4:22 PM [facility] MCH 28.6 27.0 - 32.0 pcg LAB HEMETOLOGY METHOD 06/02[facility]24 [facility] MCHC 32.7 32.0 - 37.0 g/dL LAB HEMETOLOGY METHOD 06/02/2024 4:22 PM [facility] RDW 16.1(H) 11.0 - 15.0 % LAB HEMETOLOGY METHOD 06/02/2024 4:22 PM [facility] Platelets 158 130 - 400 K/mcL LAB HEMETOLOGY METHOD 06/02/2024 4:22 PM [facility] MPV 10.8 7.0 - 11.0 FL LAB HEMETOLOGY METHOD 06/02/2024 4:22 PM [facility] NRBC 0.0 <1.0 % LAB HEMETOLOGY METHOD 06/02/2024 4:22 PM [facility] NRBC Absolute 0.00 <0.10 K/mcL LAB HEMETOLOGY METHOD 06/02/2024 4:22 PM [facility] Neutrophils Relative 60.7 % LAB HEMETOLOGY METHOD 06/02/2024 4:22 PM [facility] Lymphocytes Relative 24.7 % LAB HEMETOLOGY METHOD 06/02/2024 4:22 PM [facility] Monocytes Relative 11.0 % LAB HEMETOLOGY METHOD 06/02/2024 4:22 PM [facility] Eosinophils Relative 2.8 % LAB HEMETOLOGY METHOD 06/02/2024 4:22 PM [facility] Basophils Relative 0.5 % LAB HEMETOLOGY METHOD 06/02/2024 4:22 PM [facility] Immature Granulocytes Relative 0.3 % LAB HEMETOLOGY METHOD 06/02/2024 4:22 PM [facility] Neutrophils Absolute 3.68 1.50 - 7.00 K/mcL LAB HEMETOLOGY METHOD 06/02/2024 4:22 PM [facility] Lymphocytes Absolute 1.50 1.00 - 5.00 K/mcL LAB HEMETOLOGY METHOD 06/02/2024 4:22 PM [facility] Monocytes Absolute 0.67 0.20 - 1.00 K/mcL LAB HEMETOLOGY METHOD 06/02/2024 4:22 PM [facility] Eosinophils Absolute 0.17 0.00 - 0.50 K/mcL LAB HEMETOLOGY METHOD 06/02/2024 4:22 PM [facility] Basophils Absolute 0.03 0.00 - 0.20 K/mcL LAB HEMETOLOGY METHOD 06/02/2024 4:22 PM EDT [facility] Immature Granulocytes Absolute 0.02 0.00 - 0.03 K/[facility] LAB HEMETOLOGY METHOD 06/02/2024 4:22 PM EDT [facility] Blood Venous blood specimen / Unknown Venipuncture / Unknown 06/02/2024 3:53 PM EDT 06/02/2024 4:08 PM EDT [facility] [place] [facility] BLOOD ORDERABLES Final Re sult Performing Organization Address City/[facility]/ZIP Co de Phone Number [facility] [address] [place] [address], [place] [phone] * Alpha fetoprotein tumor marker (06/02/2024 3:53 PM EDT) AFP <2.5 0.0 - 8.0 ng/mL LAB CHEMISTRY METHOD 06/02/2024 7:24 PM EDT [facility] Blood Venous blood specimen / Unknown Venipuncture / Unknown 06/02/2024 3:53 PM EDT 06/02/2024 4:07 PM EDT Narrative [facility] - 06/02/2024 7:24 PM EDT The Siemens Advia Centaur Chemiluminescent Immunoassay is used. Results obtained with different assay methods or kits cannot be used interchangeably. Results cannot be interpreted as absolute evidence of the presence or absence of malignant disease. Catherine CLAIRE LAB BLOOD ORDERABLES Final Re sult [facility] [address] [place] [address], [place] [phone] * (ABNORMAL) Ammonia (06/02/2024 3:53 PM EDT) Ammonia 65(H) 11 - 35 mcmol/L LAB CHEMISTRY METHOD 06/02/2024 4:32 PM [facility] Blood Venous blood specimen / Unknown Venipuncture / Unknown 06/02/2024 3:53 PM EDT 06/02/2024 4:05 PM EDT us Ctaherine CLAIRE LAB BLOOD ORDERABLES Final Re sult [facility] [address] [place] [address], [place] [phone] * (ABNORMAL) Comprehensive metabolic panel (06/02/2024 3:53 PM EDT) Sodium 140 133 - 145 mmol/L LAB CHEMISTRY METHOD 06/02/2024 6:07 PM [facility] Potassium 4.5 3.5 - 5.5 mmol/L LAB CHEMISTRY METHOD 06/02/2024 6:07 PM [facility] Chloride 106 96 - 110 mmol/L LAB CHEMISTRY METHOD 06/02/2024 6:07 PM [facility] CO2 26 21 - 32 mmol/L LAB CHEMISTRY METHOD 06/02/2024 6:07 PM [facility] Anion Gap 8 3 - 11 LAB CHEMISTRY METHOD 06/02/2024 6:07 PM [facility] Glucose 92 70 - 100 mg/dL LAB CHEMISTRY METHOD 06/02/2024 6:07 PM [facility] BUN 12 5 - 25 mg/dL LAB CHEMISTRY METHOD 06/02/2024 6:07 PM [facility] Creatinine 0.91 0.70 - 1.30 mg/dL LAB CHEMISTRY METHOD 06/02/2024 6:07 PM [facility] eGFR 94 >=60 mL/min/1. 73m2 LAB CHEMISTRY METHOD 06/02/2024 6:07 PM [facility] Comment:Calculation based on the??Chronic Kidney Disease Epidemiology Collaboration (CKD-EPI) equation refit??without adjustment for race. BUN/Creatinine Ratio 13.2 LAB CHEMISTRY METHOD 06/02/2024 6:07 PM [facility] Calcium 9.7 8.5 - 10.5 mg/dL LAB CHEMISTRY METHOD 06/02/2024 6:07 PM [facility] AST (SGOT) 60(H) 10 - 42 unit/L LAB CHEMISTRY METHOD 06/02/2024 6:07 PM [facility] ALT (SGPT) 58 10 - 60 unit/L LAB CHEMISTRY METHOD 06/02/2024 6:07 PM [facility] Alkaline Phosphatase 130(H) 42 - 121 unit/L LAB CHEMISTRY METHOD 06/02/2024 6:07 PM [facility] Total Protein 7.6 6.0 - 8.0 g/dL LAB CHEMISTRY METHOD 06/02/2024 6:07 PM [facility] Albumin 3.6 3.2 - 5.0 g/dL LAB CHEMISTRY METHOD 06/02/2024 6:07 PM [facility] Total Bilirubin 0.7 0.0 - 1.4 mg/dL LAB CHEMISTRY METHOD 06/02/2024 6:07 PM [facility] Blood Venous blood specimen / Unknown Venipuncture / Unknown 06/02/2024 3:53 PM EDT 06/02/2024 4:07 PM EDT us [facility] BLOOD ORDERABLES Final Re sult [facility] [address] [place] [address], from Last 3 Months Insurance MEDICARE HUMAN Advance Directives Documents on File Type Date 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 Health Care Decision (hx) 03/30/2018 AD MUIR DIRECTIVE Health Care Decision (hx) 03/30/2018 AD MUIR DIRECTIVE Health Care Decision (hx) 03/30/2018 AD MUIR DIRECTIVE Health Care Decision (hx) 03/30/2018 AD MUIR DIRECTIVE Health Care Decision (hx) 03/30/2018 AD MUIR DIRECTIVE Health Care Decision (hx) 03/30/2018 AD MUIR DIRECTIVE Health Care Decision (hx) 03/30/2018 AD MUIR DIRECTIVE Health Care Decision (hx) 03/30/2018 AD MUIR DIRECTIVE Health Care Decision (hx) 03/30/2018 AD MUIR DIRECTIVE Health Care Decision (hx) 03/30/2018 AD MUIR DIRECTIVE Health Care Decision (hx) 03/30/2018 AD MUIR DIRECTIVE Health Care Decision (hx) 03/30/2018 AD MUIR DIRECTIVE Health Care Decision (hx) 03/30/2018 AD MUIR DIRECTIVE Health Care Decision (hx) 03/30/2018 AD MUIR DIRECTIVE Health Care Decision (hx) 03/30/2018 AD MUIR DIRECTIVE Health Care Decision (hx) 03/30/2018 AD MUIR DIRECTIVE Health Care Decision (hx) 03/30/2018 AD MUIR DIRECTIVE Health Care Decision (hx) 03/30/2018 AD MUIR DIRECTIVE Health Care Decision (hx) 03/30/2018 AD MUIR DIRECTIVE Health Care Decision (hx) 03/30/2018 AD MUIR DIRECTIVE Health Care Decision (hx) 03/30/2018 AD MUIR DIRECTIVE Health Care Decision (hx) 03/30/2018 AD MUIR DIRECTIVE Health Care Decision (hx) 03/30/2018 AD MUIR DIRECTIVE Health Care Decision (hx) 03/30/2018 AD MUIR DIRECTIVE Health Care Decision (hx) 03/30/2018 AD MUIR DIRECTIVE Health Care Decision (hx) 03/30/2018 AD MUIR DIRECTIVE Health Care Decision (hx) 03/30/2018 AD MUIR DIRECTIVE Health Care Decision (hx) 03/30/2018 AD MUIR DIRECTIVE Health Care Decision (hx) 03/30/2018 AD MUIR DIRECTIVE Health Care Decision (hx) 03/30/2018 AD MUIR DIRECTIVE Health Care Decision (hx) 03/30/2018 AD MUIR DIRECTIVE Health Care Decision (hx) 03/30/2018 AD MUIR DIRECTIVE Health Care Decision (hx) 03/30/2018 AD MUIR DIRECTIVE Health Care Decision (hx) 03/30/2018 AD MUIR DIRECTIVE Health Care Decision (hx) 03/30/2018 AD MUIR DIRECTIVE Health Care Decision (hx) 03/30/2018 AD MUIR DIRECTIVE Health Care Decision (hx) 03/30/2018 AD MUIR DIRECTIVE Care Teams Pastoral Counselor Relationship Specialty Start Date End Date Le Lima MD [address] [place] [address] PCP - General Internal Medicine 05/10/24
--- OUTSIDE RECORDS SUMMARY | 2024-06-08 15:09 | XMS_ITS | Encounter Summary ---
Author Organization [facility] Address [address] [place] [address] Care Team Providers Care Budget Controller Name Role Phone Jonny Lima MD Primary Care Provider [phone] -[phone] Encounter Details Date Type Department Care Team Description 09/03/2021 Orders Only Pulmonology - [place] [address] [facility] [address] [place] [address] Demetria Dove MD [address] [facility] [address] [place] [address] GEOVANNI on CPAP Social History Tobacco Use Types Packs/Day Years [...] In the last 10 days, have stanton estrella been in contact with someone who was confirmed or suspected to have Coronavirus/COVID-19? No / Unsure 08/07/2021 1:23 PM EDT documented as of this encounter Progress Notes * Demetria Dove MD - 09/03/2021 5:14 PM EDT Tell patient home sleep study show minimum evidence of sleep apnea, I will discuss with patient in follow-up. Given the fact that he has prior sleep apnea, he would need to be sent for overnight polysomnogram for clarification at [facility]. documented in this encounter Plan of Treatment Not on file documented as of this encounter Procedures Procedure Name Priority Date/Time Associated Diagnosis Comments SLEEP STUDY-FULL NEURO 16 CHANNEL Routine 08/28/2021 GEOVANNI on CPAP documented in this encounter Results * SLEEP STUDY-FULL NEURO 16 CHANNEL (08/28/2021) Demetria Dove MD PULMONOLOGY documented in this encounter Visit Diagnoses Diagnosis GEOVANNI on CPAP Obstructive sleep apnea (adult) (pediatric) documented in this encounter Care Teams Budget Controller Relationship Specialty Start Date End Date Jonny Lima MD [facility] [place] [address] PCP - General Internal Medicine 01/13/19 documented as of this encounter
--- OUTSIDE RECORDS SUMMARY | 2024-06-08 15:09 | XMS_ITS | Encounter Summary ---
Author Organization [facility] Address [address] [place] [address] Care Team Providers Care Sand Screener Operator Name Role Phone Jonny Lima MD Primary Care Provider [phone] [phone] Reason for Visit * Reason Onset Date Comments REFERRAL 07/09/2021 Encounter Details Date Type Department Care Team Description 07/09/2021 Telephone Adult Medicine - [place] [address] [place] [address] Jonny Lima MD [address] [place] [address] REFERRAL Social History Tobacco Use Types Packs/Day Years [...] encounter Miscellaneous Notes * Telephone Encounter - Kesha Virgil - 07/09/2021 3:10 PM EDT Pt would like a referral to [facility]ne [facility] Inclusion Intern fax to [phone] - in placeof the existing one that was just put in documented in this encounter Plan of Treatment Not on file documented as of this encounter Visit Diagnoses Not on filedocumented in this encounter Care Teams Sand Screener Operator Relationship Specialty Start Date End Date Jonny Lima MD [address] [place] [address] PCP - General Internal Medicine 01/13/19 documented as of this encounter
--- OUTSIDE RECORDS SUMMARY | 2024-06-08 15:09 | XMS_ITS | Encounter Summary ---
Author Organization [facility] Address [address] [place] [address] Care Team Providers Care Tele Tech Name Role Phone Jonny Lima MD Primary Care Provider [phone] -[phone] Encounter Details Date Type Department Care Team Description 04/23/2021 Hospital Medical Records [address] [place] [address] Deya Hatfield MD Social History Tobacco Use Types Packs/Day [...] on filedocumented in this encounter Care Teams Tele Tech Relationship Specialty Start Date End Date Jonny Lima MD [address] [place] [address] PCP - General Internal Medicine 01/13/19 documented as of this encounter
--- OUTSIDE RECORDS SUMMARY | 2024-06-08 15:09 | XMS_ITS | Encounter Summary ---
Author Organization [facility] Address [address] [place] [address] Care Team Providers Care Sap Payroll Consultant Name Role Phone Jonny Lima MD Primary Care Provider [phone] [phone] Encounter Details Date Type Department Care Team Description 10/29/2021 Pt. Non Urgent Medic al Question Adult Medicine - [address] [address] Jonny Lima MD [address] [place] [address] Social History Tobacco Use Types Packs/Day Years [...] Telephone Encounter - Le Khan M.A. - 10/29/2021 1:36 PM EDTFrom: Raul Rome To: Medhat Lima Sent: 10/29/2021 1:27 PM EDT Subject: Colonoscopy Could I please have a referral for a colonoscopy Thank you documented in this encounter Plan of Treatment Not on file documented as of this encounter Visit Diagnoses Not on filedocumented in this encounter Care Teams Sap Payroll Consultant Relationship Specialty Start Date End Date Jonny Lima MD [address] [place] [address] PCP - General Internal Medicine 01/13/19 documented as of this encounter
--- OUTSIDE RECORDS SUMMARY | 2024-06-08 15:09 | XMS_ITS | Encounter Summary ---
Author Organization [facility] Address [address] [place] [address] Care Team Providers Care History Department Chair Name Role Phone Jonny Lima MD Primary Care Provider [phone] [phone] Encounter Details Date Type Department Care Team Description 01/25/2021 Refill Adult Medicine - [place] [address] [place] [address] Harris Solomon PA-C [address] [place] [address] Social History Tobacco Use Types Packs/Day Years [...] on filedocumented in this encounter Care Teams History Department Chair Relationship Specialty Start Date End Date Jonny Lima MD [address] [place] [address] PCP - General Internal Medicine 01/13/19 documented as of this encounter
--- OUTSIDE RECORDS SUMMARY | 2024-06-08 15:09 | XMS_ITS | Encounter Summary ---
Author Organization [facility] Address [address] [place] [address] Care Team Providers Care Stitcher Operator Name Role Phone Jonny Lima MD Primary Care Provider [phone] [phone] Amira Shannon MD Primary Care Provider Unavailable Jonny Lima MD Primary Care Provider [phone] [phone] Encounter Details Date Type Department Care Team Description 10/31/2018 Telephone Adult [facility] [address] [place] [address] Jonny Lima MD [address] [place], [place] Social History Tobacco Use Types Packs/Day Years [...] on filedocumented in this encounter Care Teams Stitcher Operator Relationship Specialty Start Date End Date Jonny Lima MD [address] [place], [place] PCP - General Internal Medicine 07/13/18 11/22/18 Amira Shannon MD [address] [place], [place] PCP - General Internal Medicine 11/23/18 01/12/19 Jonny Lima, [address] [place] [address] [place] [address] PCP - General Internal Medicine 01/13/19 documented as of this encounter
--- OUTSIDE RECORDS SUMMARY | 2024-06-08 15:09 | XMS_ITS | Encounter Summary ---
Author Organization [facility] Address [address] [place] [address] Care Team Providers Care Lining Repairer Name Role Phone Amira Shannon MD Primary Care Provider Unavailable Jonny Lima MD Primary Care Provider [phone] [phone] Amira Shannon MD Primary Care Provider Unavailable Jonny Lima MD Primary Care Provider [phone] [phone] Reason for Visit * Reason Comments E-prescribe Rx Request Encounter Details Date Type Department Care Team Description 01/07/2018 Refill Adult Medicine - [address] [address] Amira Shannon MD E-prescribe Rx Request Social History Tobacco Use [...] * Telephone Encounter - Chayo Hall - 01/12/2018 9:59 AM EST LMOM for patient to call back and make an appt * Telephone Encounter - Jennifer Schreiber M.A. - 01/10/2018 9:[address] Overdue for follow up appt * Telephone Encounter - Keya Plunkett - 01/10/2018 8:01 AM EST Patient would like script to be: E-PRESCRIBED/FAXED TO PHARMACY WHEN WAS THE PATIENT'S LAST APPOINTMENT IN ADULT MEDICINE? 10/12/17 WHEN WAS THE LAST TIME THE PATIENT SAW THEIR PCP? Same as above Does patient have an upcoming appointment? Due ba (THE MEDICATION REQUESTED IS ON THE MED [...] N/A Patients current insurance carrier is: Payor: [facility] PLAN / Plan: [facility] TYPE II $10/$18 / Product Type: HMO [id number] documented in this encounter Plan of Treatment Not on file documented as of this encounter Visit Diagnoses Not on filedocumented in this encounter Care Teams Lining Repairer Relationship Specialty Start Date End Date Amira Shannon MD PCP - General Internal Medicine 06/01/14 Jonny Lima MD [address] [place], [place] [id number] PCP - General Internal Medicine 07/13/18 11/22/18 Amira Shannon MD PCP - General Internal Medicine 11/23/18 Jonny Lima, [address] [place] [address] PCP - General Internal Medicine 01/13/19 documented as of this encounter
--- OUTSIDE RECORDS SUMMARY | 2024-06-08 15:09 | XMS_ITS | Encounter Summary ---
[facility] Address [address] [place] [address] Care Team Providers Care Program Development Specialist Name Role Phone Jonny Lima MD Primary Care Provider [phone] [phone] Encounter Details Date Type Department Care Team Description 11/29/2021 Refill Adult Medicine - [place] [address] [place] [address] Harris Solomon PA-C [address] [place] [address] Social History Tobacco Use Types Packs/Day Years [...] on filedocumented in this encounter Care Teams Program Development Specialist Relationship Specialty Start Date End Date Jonny Lima MD [address] [place] [address] PCP - General Internal Medicine 01/13/19 documented as of this encounter
--- OUTSIDE RECORDS SUMMARY | 2024-06-08 15:09 | XMS_ITS | Encounter Summary ---
Author Organization [facility] Address [address] [place] [address] Care Team Providers Care Photographic Restorer Name Role Phone Amira Shannon MD Primary Care Provider Unavailable Jonny Lima MD Primary Care Provider [phone] [phone] Amira Shannon MD Primary Care Provider Unavailable Jonny Lima MD Primary Care Provider +1 [phone] Encounter Details Date Type Department Care Team Description 10/21/2017 Orders Only Adult Medicine - [address] [address] Harris Solomon PA-C [address] [place] [address] Elevated fasting blood sugar (Primary Dx) Social History Tobacco Use Types [...] documented as of this encounter Results * HEMOGLOBIN A1C (10/21/2017 4:54 PM EDT) Glycosylated Hemoglobin A1C 5.4 4.0 - 6.0 % 2017 10:32 AM EDT [facility] Comment: HbA1C VALUES MAY NOT ACCURATELY REFLECT MEAN BLOOD GLUCOSE IN PATIENTS WITH HEMOGLOBIN VARIANTS SUCH HbF, HbS. 10/21/2017 4:54 PM EDT 10/21/2017 4:54 PM EDT Harris Solomon PA-C [facility] [address] [place] [address] documented in this encounter Visit Diagnoses Diagnosis Elevated fasting blood sugar- Primary Impaired fasting glucose documented in this encounter Care Teams Photographic Restorer Relationship Specialty Start Date End Date Amira Shannon MD PCP - General Internal Medicine 06/01/14 Jonny Lima, [address] [place] [address] PCP - General Internal Medicine 07/13/18 11/22/18 Amira Shannon MD PCP - General Internal Medicine 11/23/18 Jonny Lima MD [address] [place] [address] PCP - General Internal Medicine 01/13/19 documented as of this encounter
--- OUTSIDE RECORDS SUMMARY | 2024-06-08 15:09 | XMS_ITS | Encounter Summary ---
Author Organization [facility] Address [address] [place] [address] Care Team Providers Care Slip Tender Name Role Phone Jonny Lima MD Primary Care Provider [phone] [phone] Reason for Visit * Reason Comments E-prescribe Rx Request Encounter Details Date Type Department Care Team Description 10/19/2019 Refill Medicine/Pediatrics - [place] [address] [place] [address] Jonny Lima, [address] [place] [address] E-prescribe Rx Request Social History Tobacco Use [...] * Telephone Encounter - Alvina Stearns - 10/19/2019 9:02 AM EDT Patient would like script to be:??E-PRESCRIBED/FAXED TO PHARMACY? WHEN WAS THE PATIENT'S LAST APPOINTMENT IN ADULT MEDICINE???06/06/19? WHEN WAS THE LAST TIME THE PATIENT SAW THEIR PCP???Same as above ?? Does patient have an upcoming appointment???10/20/19 ?? (THE MEDICATION REQUESTED??IS ON THE MED LIST ABOVE) All of the medications requested were on the CURRENT MEDS list ?? Did you check the Pharmacy information above?:??YES ?? Patient wants:??90 -day supply ?? Is this a mail order prescription request ?NO ?? If the refill is from a FAXED refill request what is the RX # listed on the fax???N/A ?? Patients current insurance carrier is: Payor: [facility] PUBLIC PLAN / Plan: [employer] $50/$90 [facility] [id number] / Product Type: HMO [id number] ?? documented in this encounter Plan of Treatment Not on file documented as of this encounter Visit Diagnoses Not on filedocumented in this encounter Care Teams Slip Tender Relationship Specialty Start Date End Date Jonny Lima, [address] [place] [address] PCP - General Internal Medicine 01/13/19 documented as of this encounter
--- OUTSIDE RECORDS SUMMARY | 2024-06-08 15:10 | XMS_ITS | Encounter Summary ---
Author Organization [facility] Address [address] [place] [address] Care Team Providers Care Garbage Truck Dispatcher Name Role Phone Iza Barajas DO Primary Care Provider Unavailabl e Amira Shannon MD Primary Care Provider Unavailable Jonny Lima MD Primary Care Provider [phone] [phone] Amira Shannon MD Primary Care Provider Unavailable Jonny Lima MD Primary Care Provider [phone] -[phone] Encounter Details Date Type Department Care Team Description 01/11/2013 Release of Information Medical Records [address] [place] [address] Abstract, Provider Social History Tobacco Use Types [...] on filedocumented in this encounter Care Teams Garbage Truck Dispatcher Relationship Specialty Start Date End Date Iza Barajas DO PCP - General Internal Medicine 11/19/11 05/31/14 Amira Shannon MD PCP - General Internal Medicine 06/01/14 Jonny Lima MD [address] [place] [address] PCP - General Internal Medicine 07/13/18 11/22/18 Estill-Amira Mena MD PCP - General Internal Medicine 11/23/18 Jonny Lima, [address] [place] [address] PCP - General Internal Medicine 01/13/19 documented as of this encounter
--- OUTSIDE RECORDS SUMMARY | 2024-06-08 15:10 | XMS_ITS | Encounter Summary ---
Author Organization [facility] Address [address] [place] [address] Care Team Providers Care Fisher Lampara Net Name Role Phone Amira Shannon MD Primary Care Provider Unavailable Jonny Lima MD Primary Care Provider [phone] [phone] Amira Shannon MD Primary Care Provider Unavailable Jonny Lima MD Primary Care Provider +1 -[phone] Encounter Details Date Type Department Care Team Description 04/12/2015 Pt. Referral Request [facility] MyChart [address] [place] [address] Md Ttae Social History Tobacco Use Types Packs/Day Years [...] on filedocumented in this encounter Care Teams Fisher Lampara Net Relationship Specialty Start Date End Date Amira Shannon MD PCP - General Internal Medicine 06/01/14 Jonny Lima MD [address] [place] [address] PCP - General Internal Medicine 07/13/18 11/22/18 Amira Shannon MD PCP - General Internal Medicine 11/23/18 Jonny Lima, [address] [place] [address] [address] [facility] [place] [address] PCP - General Internal Medicine 01/13/19 documented as of this encounter
--- OUTSIDE RECORDS SUMMARY | 2024-06-08 15:10 | XMS_ITS | Encounter Summary ---
Author Organization [facility] Address [address] [place] [address] Care Team Providers Care Risk Control Specialist Name Role Phone Jonny Lima MD Primary Care Provider [phone] [phone] Amira Shannon MD Primary Care Provider Unavailable Jonny Lima MD Primary Care Provider [phone] -[phone] Encounter Details Date Type Department Care Team Description 07/15/2018 Orders Only Medical Records [address] [place] [address] Arnoldo Duvall MD Social History Tobacco Use Types Packs/Day [...] Name Priority Date/Time Associated Diagnosis Comments OUTSIDE PATHOLOGY Routine 07/13/2018 documented in this encounter Results * OUTSIDE PATHOLOGY (07/13/2018) Arnoldo Duvall MD OUTSIDE LAB documented in this encounter Visit Diagnoses Not on filedocumented in this encounter Care Teams Risk Control Specialist Relationship Specialty Start Date End Date Jonny Lima MD [address] [place] [address] PCP - General Internal Medicine 07/13/18 11/22/18 Elva Shannonica, MD [address] [place] [address] PCP - General Internal Medicine 11/23/18 01/12/19 Jonny Lima MD [address] [place] [address] PCP - General Internal Medicine 01/13/19 documented as of this encounter
--- OUTSIDE RECORDS SUMMARY | 2024-06-08 15:10 | XMS_ITS | Encounter Summary ---
Author Organization [facility] Address [address] [place] [address] Care Team Providers Care It Administrative Assistant Name Role Phone Amira Shannon MD Primary Care Provider Unavailable Jonny Lima MD Primary Care Provider [phone] [phone] Amira Shannon MD Primary Care Provider Unavailable Jonny Lima MD Primary Care Provider +1 -[phone] Encounter Details Date Type Department Care Team Description 02/20/2015 Orders Only Adult Medicine - [address] [address] Harris Solomon PA-C [address] [place] [id number] Social History Tobacco Use Types Packs/Day Years [...] on filedocumented in this encounter Care Teams It Administrative Assistant Relationship Specialty Start Date End Date Amira Shannon MD PCP - General Internal Medicine 06/01/14 Jonny Lima MD [address] [place] [address] PCP - General Internal Medicine 07/13/18 11/22/18 Winona-Amira Mena MD PCP - General Internal Medicine 11/23/18 Jonny Lima MD [address] [place] [address] PCP - General Internal Medicine 01/13/19 documented as of this encounter
--- OUTSIDE RECORDS SUMMARY | 2024-06-08 15:10 | XMS_ITS | Encounter Summary ---
Author Organization [facility] Address [address] [place] [address] Care Team Providers Care Plain Goods Hemmer Name Role Phone Le Lima MD Primary Care Prov ider Reason for Referral * Imaging (Routine) - Closed Specialty Diagnoses / Procedures Referred By Contac t Referred To Contact Radiology Diagnoses Alcoholic cirrhosis of liver without ascites (CMS/HCC V24, CMS/HCC V28) Procedures MR Abdomen wo and w Contrast Catherine Linares PA [address] [address] Phone: tel: fax: [address] [address] Phone: tel: Referral ID Status Reason Start Date Expiration Date Visits Re quested Visits Authorized [id number] Closed 05/25/2024 05/25/2025 1 1 Reason for Visit * Imaging (Routine) - Closed Specialty Diagnoses / Procedures Referred By Contac t Referred To Contact Radiology Diagnoses Alcoholic cirrhosis of liver without ascites (CMS/HCC V24, CMS/HCC V28) Procedures MR Abdomen wo and w Contrast Catherine Linares PA [address] [address] Phone: tel: fax: [address] [address] Phone: tel: Referral ID Status Reason Start Date Expiration Date Visits Re quested Visits Authorized [id number] Closed 05/25/2024 05/25/2025 1 1 Encounter Details Date Type Department Care Team (Latest Contact Info) Description 06/02/2024 4:14 PM EDT - 06/02/2024 11:59 PM EDT Hospital Encounter [facility] MRI [address] [place] [address] Alcoholic cirrhosis of liver without ascites ([facility] V24, [facility] V28) Discharge Disposition: Home or Self Care Social History Tobacco Use Types Packs/Day Years Used Date Smoking Tobacco: Never Smokeless Tobacco: Never Alcohol Use Standard Drinks/Week Comments No 0 (1 standard drink = 0.6 oz pur e alcohol) Sex and Gender Information Value Date Recorded Sex Assigned at Not on file Legal Sex Male 8:14 AM EST Gender Identity Not on file Sexual Orientation Not on file documented as of this encounter Medications at Time of Discharge albuterol HFA (PROAIR HFA ; PROVENTIL HFA ; VENTOLIN HFA) 90 mcg/actuation inhaler INHALE 2 PUFFS INTO THE LUNGS FOUR TIMES DAILY NEEDED FOR COUGH OR WHEEZING OR SHORTNESS OF BREATH 03/06/2022 azelastine (ASTELIN) 137 mcg (0.1 %) nasal spray Administer 1 spray into affected nostril(s). 09/12/2020 budesonide-formoter oL (SYMBICORT) 80-4.5 mcg/actuation inhalerIndications: Chronic obstructive pulmonary disease, unspecified COPD type ([facility] V24, [facility] V28) Inhale 2 puffs by mouth 2 (two) times a day. Rinse mouth with water after use to reduce aftertaste and incidence of candidiasis. Do not swallow. 1 each 2 02/23/2024 carvediloL (COREG) 12.5 mg tablet Take 1 tablet (12.5 mg total) by mouth 2 (two) times a day with meals. carvediloL (COREG) 3.125 mg tablet TAKE 1 TABLET BY MOUTH TWICE DAILY WITH MEALS 60 tablet 5 01/20/2024 CHOLECALCIFEROL, VITAMIN D3, ORAL Take 50 mcg by mouth. diclofenac (VOLTAREN) 1 % topical gel Apply 1 each topically. 07/19/2023 furosemide (LASIX) 40 mg tablet TAKE 1 TABLET BY MOUTH TWICE DAILY 60 tablet 4 04/28/2024 gabapentin (NEURONTIN) 300 mg capsule Take 1 capsule (300 mg total) by mouth. 01/17/2024 hydrOXYzine pamoate (VISTARIL) 50 mg capsuleIndications: Attention deficit hyperactivity disorder (ADHD), unspecified ADHD type Take 1 capsule (50 mg total) by mouth at bedtime as needed for anxiety. at bedtime 90 capsule 1 02/01/2024 melatonin 3 mg tablet TAKE 3 TABLET BY MOUTH AT BEDTIME 05/24/2023 methylphenidate 27 mg ER tablet Take 1 tablet (27 mg total) by mouth 2 (two) times a day. Max Daily Amount: 54 mg 05/18/2024 mirtazapine (REMERON) 7.5 mg tablet Take 1 tablet (7.5 mg total) by mouth. at bedtime. 01/19/2024 MULTIVITAMIN ORAL Take 1 tablet by mouth 1 (one) time each day. omega 3-rpc-fbh-fish oil 35-25-5-113.5 mg tablet,chewable Chew 1 capsule. omeprazole (PriLOSEC) [address] capsule Take 1 capsule (40 mg total) by mouth 1 (one) time each day. 04/28/2023 sertraline (ZOLOFT) 100 mg tablet TAKE 1 AND 1/2 TABLETS BY MOUTH DAILY 45 tablet 1 02/25/2024 sertraline (ZOLOFT) 100 mg tablet Take 1.5 tablets (150 mg total) by mouth. 07/19/2023 spironolactone (ALDACTONE) 50 mg tablet Take 1 tablet (50 mg total) by mouth 1 (one) time each day. 90 tablet 1 04/25/2024 Wixela Inhub 250-50 mcg/dose diskus inhaler Inhale 1 puff by mouth every 12 (twelve) hours if needed. 03/31/2024 documented as of this encounter Discharge Disposition Disposition Code Departure Means Destination Home or Self Care documented in this encounter Progress Notes * ALETHEA Palmer - 06/02/2024 4:15 PM EDT I will send msg. documented in this encounter Plan of Treatment Upcoming Encounters Date Type Department Care Team (Late st Contact Info) Description 06/30/2024 1:15 PM EDT Office Visit Adult Medicine - [place] [address] [place] [address] Le Lima MD [address] [place] [address] 10/23/2024 11:00 AM EDT Appointment [facility] Endoscopy [address] [place] [phone] Deny Reis DO 175 [facility] [address] [place] [address] 11/27/2024 11:30 AM EDT Office Visit Gastroenterology - [place] [address] [facility] [address] [place] [phone] Catherine Linares PA 175 [facility] [address] [place] [address] documented as of this encounter Procedures Procedure Name Priority Date/Time Associated Diagnosis Comments MR ABDOMEN WO AND W CONTRAST Routine 06/02/2024 5:51 PM EDT Alcoholic cirrhosis of liver without ascites (CMS/HCC V24, CMS/HCC V28) documented in this encounter Results * MR Abdomen wo and w [...] Signed Date: 06/02/2024 17:56 ET Workstation ID: [id number] Transcribed By: Self Edit Transcribed Date: 06/02/2024 17:41 ET Narrative 06/02/2024 5:56 PM EDT EXAMINATION: MRI ABDOMEN WITHOUT AND WITH IV CONTRAST CLINICAL INFORMATION: Cirrhosis. ??Esophageal varices. COMPARISON: Portions of liver ultrasound 05/11/23 ?? TECHNIQUE: Anatomic and fluid sensitive MR sequences obtained on a 3 Argleia platform were used to examine the abdomen. [...] Signed Date: 06/02/2024 17:56 ET Workstation ID: [id number] Transcribed By: Self Edit Transcribed Date: 06/02/2024 17:41 ET Catherine CLAIRE IMNenita MRI PROCEDURES Final Resu lt documented in this encounter Visit Diagnoses Diagnosis Alcoholic cirrhosis of liver without ascites (CMS/HCC V24, CMS/HCC V28) documented in this encounter Administered Medications Inactive Administered Medications - up to 3 most recent administrations Medication Order MAR Action Action Date Dose Rate Site gadoterate meglumine (CLARISCAN, DOTAREM) injection 20 mL 20 mL, intravenous, Once in imaging, Starting on Wed06/02/24 at 1701, For 1 dose Given 06/02/2024 5:51 PM EDT 20 mL documented in this encounter Orders Medications Ordered That Malcom ht Not Have Been Administered Count Last Ordered Date First Ordered Date gadoterate meglumine (DANIELLE CAN, DOTAREM) injection 20 mL 1 06/02/2024 documented in this encounter Care Teams Plain Goods Hemmer Relationship Specialty Start Date End Date Le Lima MD [address] [place] [address] PCP - General Internal Medicine 05/10/24 documented as of this encounter
--- OUTSIDE RECORDS SUMMARY | 2024-06-08 15:10 | XMS_ITS | Encounter Summary ---
Author Organization [facility] Address [address] [place] [address] Care Team Providers Care Touch Up Worker Name Role Phone Jonny Lima MD Primary Care Provider [phone] Radhika-Amira Mena MD Primary Care Provider Unavailable Jonny Lima MD Primary Care Provider [phone] Reason for Visit * Reason Onset Date Comments medication problems 08/03/2018 abnormal LFT 's Encounter Details Date Type Department Care Team Description 08/03/2018 Telephone Gastroenterology - [address] [place] [address] Arnoldo Duvall MD medication problems (abnormal LFT's ) Social History Tobacco Use Types Packs/Day Years [...] encounter Miscellaneous Notes * Telephone Encounter - Jaymie Capellan M.A. - 08/03/2018 1:25 PM EDT Tried to call Jorge at [phone] with out answer. Left message on Sarai cell phone number advising new lab orders have been placed for patient. When patient calls back please find out where hismost recent labs have been drawn and we do not have them in our system. Last labs here 2 months ago/map * Telephone Encounter - Arnoldo Duvall MD - 08/03/2018 12:42 PM EDT Chart reviewed. I do not see any record of any LFT's done since 2 months ago. I ordered labs, please instruct him to go to the lab today and I will review the results with him. * Telephone Encounter - Jaymie Capellan M.A. - 08/03/2018 11:09 AM EDT Please review and call/map * Telephone Encounter - Gerda Elise - 08/03/2018 10:24 AM EDT Pt's called stating her is on Lactulose 15 mg BID and has been taking it for 3 weeks. His LFTs are rising and they are concerned. documented in this encounter Plan of Treatment Not on file documented as of this encounter Results * (ABNORMAL) AMMONIA, BLOOD, ASSAY (08/08/2018 4:00 PM EDT) AMMONIA (NH3) 101(H) 11 - 35 umol/L 08/08/2018 5:34 PM EDT [employer] 08/08/2018 4:00 PM EDT 08/08/2018 4:00 PM EDT [facility] Duvall [facility] * (ABNORMAL) COMPREHENSIVE METABOLIC PANEL (08/08/2018 4:00 PM EDT) GLUCOSE 111(H) 70 - 100 mg/dL 08/08/2018 6:00 PM EDT [employer] Comment:Reference range appl icable to fasting specimens only Blood Urea Nitrogen 20 5 - 25 mg/dL 08/08/2018 6:00 PM EDT [facility] 1.07 0.7 - 1.3 mg/dL 08/08/2018 6:00 PM EDT [facility] GLOMERULAR FILTRATION RATE > 60 08/08/2018 6:00 PM EDT [facility] Comment: If patient is -Wallisian, multiply result by 1.21 Chronic Kidney Disease: < 60 ml/min/1.73 square meters Kidney Failure: < 15 ml/min/1.73 square meters NA 136 133 - 145 mmol/L 08/08/2018 6:00 PM EDT [facility] K 3.2(L) 3.5 - 5.5 mmol/L 08/08/2018 6:00 PM EDT [facility] CL 93(L) 96 - 110 mmol/L 08/08/2018 6:00 PM EDT [facility] CARBON DIOXIDE (CO2) 34(H) 21 - 32 mmol/L 08/08/2018 6:00 PM EDT [facility] ANION GAP 9 3 - 11 08/08/2018 6:00 PM EDT [facility] CALCIUM 9.6 8.5 - 10.5 mg/dL 08/08/2018 6:00 PM EDT [facility] TOTAL PROTEIN (TP) 8.7(H) 6.0 - 8.0 G/dL 08/08/2018 6:00 PM EDT [facility] Albumin 3.5 3.2 - 5.0 G/dL 08/08/2018 6:00 PM EDT [facility] BILIRUBIN TOTAL 0.8 0.0 - 1.4 mg/dL 08/08/2018 6:00 PM EDT [facility] SGOT 54(H) 10 - 42 U/L 08/08/2018 6:00 PM EDT [facility] SGPT 54 10 - 60 U/L 08/08/2018 6:00 PM EDT [facility] ALK PHOS 145(H) 42 - 121 U/L 08/08/2018 6:00 PM EDT [facility] 08/08/2018 4:00 PM EDT 08/08/2018 4:00 PM EDT Arnoldo Duvall MD LAB [facility] * PROTHROMBIN TIME (08/08/2018 4:00 PM EDT) Prothrombin Time 12.8 10.6 - 13.9 SEC 08/08/2018 5:53 PM EDT [facility] INR 1.08 08/08/2018 5:53 PM EDT [facility] 08/08/2018 4:00 PM EDT 08/08/2018 4:00 PM EDT Arnoldo Duvall MD LAB Performing Organization Address [facility]/ZIP Co de Phone Number [facility] * AUTOMATED HEMOGRAM PLATELET COUNT (08/08/2018 4:00 PM EDT) WHITE BLOOD COUNT 7.5 4.8 - 10.8 x10-3/uL 08/08/2018 5:53 PM EDT [facility] RED BLOOD COUNT 5.4 4.5 - 5.5 x10-6/uL 08/08/2018 5:53 PM EDT [facility] Hemoglobin 15.9 13.5 - 17.5 g/dL 08/08/2018 5:53 PM EDT [facility] Hematocrit 47.1 42 - 54 % 08/08/2018 5:53 PM EDT [facility] MEAN CORPUSCULAR VOLUME 88.0 79 - 98 fL 08/08/2018 5:53 PM EDT [facility] MEAN CORPUSCULAR HEMOGLOBIN 29.7 27 - 32 pg 08/08/2018 5:53 PM EDT [facility] MEAN CORPUSCULAR HGB CONC 33.8 32 - 37 g/dL 08/08/2018 5:53 PM EDT [facility] RED CELL DISTRIBUTION WIDTH 12.6 11 - 15 % 08/08/2018 5:53 PM EDT [facility] PLT COUNT 200 130 - 400 x10-3/uL 08/08/2018 5:53 PM EDT [facility] MEAN PLATELET VOLUME 10.6 7 - 11 fL 08/08/2018 5:53 PM EDT [facility] NRBC % AUTO 0.0 <1 % 08/08/2018 5:53 PM EDT [facility] NRBC # AUTO 0.00 <0.1 x10-3/uL 08/08/2018 5:53 PM EDT [facility] 08/08/2018 4:00 PM EDT 08/08/2018 4:00 PM EDT Arnoldo Duvall MD LAB [facility] documented in this encounter Visit Diagnoses Diagnosis Alcoholic cirrhosis of liver with ascites (HCC)- Primary Alcoholic cirrhosis of liver documented in this encounter Care Teams Touch Up Worker Relationship Specialty Start Date End Date Jonny Lima MD [address] [place] [address] PCP - General Internal Medicine 07/13/18 11/22/18 Amira Shannon MD [address] [place], [place] PCP - General Internal Medicine 11/23/18 01/12/19 Jonny Lima MD [address] [place] [address] PCP - General Internal Medicine 01/13/19 documented as of this encounter
--- OUTSIDE RECORDS SUMMARY | 2024-06-08 15:10 | XMS_ITS | Encounter Summary ---
Author Organization [facility] Address [address] [place] [address] Care Team Providers Care Family Intervention Specialist Name Role Phone Jonny Lima MD Primary Care Provider [phone] Amira Shannon MD Primary Care Provider Unavailable Jonny Lima MD Primary Care Provider [phone] Encounter Details Date Type Department Care Team Description 08/09/2018 Education And Outreach Coordinator Report Medical Records [address] [place] [address] Celi Nguyen PA-C [address] [place] [address] [place] [address] Social History Tobacco Use Types Packs/Day Years [...] on filedocumented in this encounter Care Teams Family Intervention Specialist Relationship Specialty Start Date End Date Jonny Lima MD [address] [place] [address] PCP - General Internal Medicine 07/13/18 11/22/18 Amira Shannon MD [address] [place], [place] PCP - General Internal Medicine 11/23/18 01/12/19 Jonny Lima, 230 [facility] [place] [address] PCP - General Internal Medicine 01/13/19 documented as of this encounter
--- OUTSIDE RECORDS SUMMARY | 2024-06-08 15:10 | XMS_ITS | Encounter Summary ---
Author Organization [facility] Address [address] [place] [address] Care Team Providers Care Scrub Technician Name Role Phone Iza Barajas DO Primary Care Provider Unavailabl e Amira Shannon MD Primary Care Provider Unavailable Jonny Lima MD Primary Care Provider [phone] Amira Shannon MD Primary Care Provider Unavailable Jonny Lima MD Primary Care Provider [phone] Encounter Details Date Type Department Care Team Description 11/13/2013 [facility] [address] [place] [address] Md Tate Social History Tobacco Use Types Packs/Day Years [...] on filedocumented in this encounter Care Teams Scrub Technician Relationship Specialty Start Date End Date Iza Barajas DO PCP - General Internal Medicine 11/19/11 05/31/14 Amira Shannon MD PCP - General Internal Medicine 06/01/14 Jonny Lima MD [address] [place] [id number] PCP - General Internal Medicine 07/13/18 11/22/18 Radhika-Amira Mena MD PCP - General Internal Medicine 11/23/18 Jonny Lima MD [address] [place] [address] PCP - General Internal Medicine 01/13/19 documented as of this encounter
--- OUTSIDE RECORDS SUMMARY | 2024-06-08 15:10 | XMS_ITS | Encounter Summary ---
Author Organization [facility] Address [address] [place] [address] Care Team Providers Care Quality Rep Name Role Phone Amira Shannon MD Primary Care Provider Unavailable Jonny Lima MD Primary Care Provider [phone] Amira Shannon MD Primary Care Provider Unavailable Jonny Lima MD Primary Care Provider [phone] Reason for Visit * Reason Onset Date Comments Pre-colonoscopy Instructions 03/14/2015 Encounter Details Date Type Department Care Team Description 03/14/2015 Telephone Gastroenterology - [address] [id number] Nurse, Gastro/[facility] [address] [place] [address] [phone] Pre-colonoscopy Instructions Social History Tobacco Use Types Packs/Day Years [...] encounter Miscellaneous Notes * Telephone Encounter - Luz David - 03/14/2015 1:18 PM EST Left message on patients machine to return call to GI schedulers to r/s colonoscopy at [facility] * Telephone Encounter - Jahaira Mehta R.N. - 03/14/2015 12:22 PM EST Pt scheduled due CN screen for 04/01/15. Review of record indicates that pt takes Suboxone, which counteracts the sedative meds used at for the CN. Left message for pt that the appt at would be cancelled and he would be contacted by the schedulers, to reschedule the procedure at the hospital under different sedation. Schedulers, please contact pt and reschedule this appt at the hospital. MALONEY documented in this encounter Plan of Treatment Not on file documented as of this encounter Visit Diagnoses Not on filedocumented in this encounter Care Teams Quality Rep Relationship Specialty Start Date End Date Amira Shannon MD PCP - General Internal Medicine 06/01/14 Jonny Lima MD [address] [place] [address] PCP - General Internal Medicine 07/13/18 11/22/18 Amira Shannon MD PCP - General Internal Medicine 11/23/18 Jonny Lima MD [address] [place] [address] PCP - General Internal Medicine 01/13/19 documented as of this encounter
--- OUTSIDE RECORDS SUMMARY | 2024-06-08 15:10 | XMS_ITS | Encounter Summary ---
Author Organization [facility] Address [address] [place] [address] Care Team Providers Care Medical Office Administrator Name Role Phone Amira Shannon MD Primary Care Provider Unavailable Jonny Lima MD Primary Care Provider [phone] Amira Shannon MD Primary Care Provider Unavailable Jonny Lima MD Primary Care Provider [phone] Reason for Referral * Specialist (Routine) - Authorized/Booked Specialty Diagnoses / Procedures Referred By Contderek t Referred To Contact Oncology/Hematology Diagnoses Factor V Leiden carrier (HCC) Procedures REFERRAL TO ONCOLOGY/HEMATOLOGY Harris Solomon PA-C [address] [place] [address] Onc/[address] [address] Referral ID Status Reason Start Date Expiration Date V isits Requested Visits Authorized NOT REQUIRED Authorized/ Booked 06/13/2014 06/13/2015 1 1 Encounter Details Date Type Department Care Team Description 06/13/2014 Orders Only Adult Medicine - [place] [address] [place] [address] Harris Solomon PA-C [address] [place] [address] Factor V Leiden carrier (Primary Dx) Social History Tobacco Use Types [...] as of this encounter Visit Diagnoses Diagnosis Factor V Leiden carrier (HCC)- Primary Primary hypercoagulable state documented in this encounter Care Teams Medical Office Administrator Relationship Specialty Start Date End Date Amira Shannon MD PCP - General Internal Medicine 06/01/14 Jonny Lima, [address] [place] [address] PCP - General Internal Medicine 07/13/18 11/22/18 Amira Shannon MD PCP - General Internal Medicine 11/23/18 Jonny Lima, [address] [place] [address] PCP - General Internal Medicine 01/13/19 documented as of this encounter
--- OUTSIDE RECORDS SUMMARY | 2024-06-08 15:10 | XMS_ITS | Encounter Summary ---
Author Organization [facility] Address [address] [place] [address] Care Team Providers Care Guest Laundry Attendant Name Role Phone Jonny Lima MD Primary Care Provider [phone] Amira Shannon MD Primary Care Provider Unavailable Jonny Lima MD Primary Care Provider [phone] Encounter Details Date Type Department Care Team Description 08/23/2018 Release of Information Medical Records [address] [place] [address] Abstract, Provider Social History Tobacco Use Types [...] on filedocumented in this encounter Care Teams Guest Laundry Attendant Relationship Specialty Start Date End Date Jonny Lima MD [address] [place] [address] PCP - General Internal Medicine 07/13/18 11/22/18 Amira Shannon MD [address] [place], [place] PCP - General Internal Medicine 11/23/18 01/12/19 Jonny Lima MD [address] [place], [place] PCP - General Internal Medicine 01/13/19 documented as of this encounter
== END 2024-06-08 12:53 | disposition home or self-care (01) ==
LOC: HO.RESP 12:52
PROVIDERS: PCP Internal Medicine; Visit Provider Hospitalist
DX: J41.0 Simple chronic bronchitis (principal)
CPT/HCPCS: 94010; 94640; 94727; 94729

== ENCOUNTER → 2024-06-08 12:56 | Outpatient (BNV) | payer MEDICARE, OTHER, SELFPAY | PROVIDERS: PCP Internal Medicine; Visit Provider Internal Medicine Pulmonary Disease | DX: J41.0 Simple chronic bronchitis (principal) | CPT/HCPCS: 94060; 94727; 94729 ==

== ENCOUNTER 2024-06-27 10:07 | Outpatient (AMB) | payer MEDICARE, OTHER, SELFPAY ==
[2024-06-27 10:12] VITALS: BP 114/60; PULSE 86; O2SAT 95; BMI 39.7
--- NOTE | 2024-06-27 10:12 | A.OFFVIS_ITS ---
Vital Signs 06/27/24 10:12 Height 5 ft 6 in Weight 245 lb 13.047 oz BMI 39.7 BP 114/60 Blood Pressure Location Lt brachial Position Sitting Pulse 86 Pulse Source Pulse Oximeter Pulse Oximetry (%) 95 Oxygen Delivery Method Room Air Intake Visit Reasons: Asthma Tobacco Sorter Required: No Accompanied by: Spouse Allergies No Known Allergies Allergy (Verified 06/27/24 10:15) HPI Comments Details: The patient is a 63-year-old gentleman with a known history of past substance abuse and alcohol use now with underlying liver cirrhosis and obstructive sleep apnea. The patient has been complaining worsening dyspnea on exertion moderate severity. In addition the patient does complaint of a cough at times productive in nature. Being a white phlegm. Denies any hemoptysis. He was evaluated at [facility] . Underwent pulmonary function studies in addition to a CT scan of the chest. We did personally review the report. the patient has evidence of interstitial lung disease primarily in the subpleural area as well as some areas of ground-glass opacities. The patient was placed on Trelegy. Although it is very expensive for him to pay and now he is not able to afford it. He did feel the Trelegy was helping some. The patient does sleep on a recliner. He states that he had diagnosis of sleep apnea. Reason the last few months he did undergo an [facility] We did review the report. This was a suboptimal study as the patient only slept about a couple hours and did not have any significant sleep apnea during those 2 hours. The patient did desaturate below 88% for about 9 minutes. Therefore the patient likely requires oxygen supplementation at nighttime. This will be checked with an overnight oximetry. In the future we can consider repeating this study. During the visit the patient was taken for a walking oximetry. He is currently healing from a wound in his lower extremity making it very difficult for him to ambulate. The patient did not qualify for oxygen with activity. 12/23/2021 the patient is here for pulmonary follow-up visit. The patient overall has been doing better. He is responding well to the inhaler. He is using as prescribed. Although, too expensive about 50 dollars a month. Will continue for now although will looking to more financially reasonable with her options in the near future. In addition to that he did start the oxygen at nighttime. The oxygen therapy has been affecting beneficial. The patient is still struggling with the CPAP. he does try to use it. The CPAP therapy is affecting beneficial. He should be using it every night more than 4 hours a night. The patient will return in about 3-4 months and undergo pulmonary function studies. Depending of the results we can consider additional evaluation specially for hepatopulmonary conditions. 02/20/2022 the patient has a telephone visit today due to the patient's she is worsening respiratory symptoms. He has been complaining of cough and shortness of breath. Moderate severity. His also was noticed that he has been more tired and sleeping more. The patient does have liver cirrhosis in addition to his COPD. Therefore she was sent to get blood work. His ammonia level was within normal limits which is reassuring. Although his venous blood gas demonstrated hypercarbia with acute on chronic respiratory acidosis. Therefore, the patient was referred to the hospital. He was evaluated in the ER. There he had a CT scan of the chest demonstrating extensive ground-glass opacities he was admitted to the hospital briefly. 03/30/2022 the patient is here for pulmonary follow-up visit. He was last seen back in February where he was confuse and was hypercarbic. He did go to the ER where he had a ABG done demonstrating resolution of the hypercarbia. His lactic acid was indeed elevated and the patient did have a CT scan consistent with ill- defined hazy opacities throughout which may have been due to an atypical type of pneumonia. He was treated with antibiotics and the patient clinically is feel ing better from a respiratory status. However, he has noticed significant lower extremity edema. He has been using his Lasix. His scan a few lb. He did go to a [employer] [facility] and they did have a lot of snacks. Probably dietary indiscretion did take place during that time. Unfortunately he now has significant amount of fluid. He was going to go ahead and double up on the Lasix at least for the morning does from 40-80 for 3 days to see if this helps with his fluid status. He is also should be using the compression stockings and he can talk to his provider about Nathen bandage wraps. Patient has significant fluid. Does not appear to be infected at this time although he just finished a course of antibiotics. If his the redness comes back and his legs feel more warm. He can always call here but I will send him a course of doxycycline that he can start in the meantime. The 07/30/2022 the patient is here for a pulmonary follow-up visit. The patient overall is doing better. He had issues with depression and went back to drinking and therefore was admitted to [facility] psychiatrically and then went to rehab afterwards. That was tough for him. Although he is now working with a counselor and waiting for psychiatrist to try to get back to normal with that. He is using the CPAP at nighttime. He is also using the oxygen with. He is wondering if it needs to be adjusted. He is not getting supplies from any DME company and the patient is no longer active with any DME company. Therefore now that he also requires oxygen and has had issues with hypercarbia the patient needs to have an in-lab study to further address 1st of all his diagnosis of sleep apnea and then afterwards address the issue of if the patient benefits from BiPAP or IPAP to address his respiratory failure component. He continues with respiratory medicines and also has been and diuretics with good effect. The only issue is that the inhalers are expensive. I will switch him over to Symbicort in hopes that is a little bit better antunez and efficacy. The Will plan to continue the inhalers and will follow-up after the in-lab sleep study. 10/29/2022 the patient is here for a pulmonary follow-up visit. Overall the patient is doing a lot better. He brought in the CPAP and we were able to adjusted to the Pred pressure. He has been tolerating the new pressure is very well. I did request he can bring it to the next visit so we can download the machine. He does uses CPAP every night for more than 4 hours a night. Again the therapy has been affecting beneficial. In meantime he continues with his respiratory therap. the patient is still working with his alcohol. He recently went back to AA. In the meantime he was in the pool and he lacerated his left lower extremity. Now appears to be significantly inflamed erythematous indurated warm. This is consistent with cellulitis. Will go ahead and prescribed some antibiotics to make sure that it does not get worse. We did marked. The patient is aware that if the swelling gets worse he needs to seek urgent medical advice otherwise follow-up with his primary care. The patient returns springtime will bring his machine in so we can download the data. 09/02/2023 the patient is here for pulmonary follow-up visit. The patient overall fairly okay. He ran out of his inhalers therefore he has been short of breath. Make sure to send to the pharmacy. In addition to that we did look at his last CT scan from March 09 demonstrating pneumonitis. The patient will get a chest x-ray today. He also recently underwent an endoscopy and demonstrated that he does have esophageal varices. The patient did undergo banding. No evidence of any active bleeding. He is trying to be careful with his medication adherence. In addition to that he did get a new CPAP. The CPAP therapy 5 has been very affecting beneficial. Although he has not gotten to use the new machine as of yet since he has been too hot upstairs where he sleeps. He is going to start using it tonight however. He understands that if he does not use it it may be taken back. Therefore he needs use it more than 4 hours a night. Does use oxygen with it. Hopefully by using the CPAP regularly he will feel better during the daytime. His [place] score is still elevated at 11 over 24. The patient also will monitor closely his p.o. intake. He has 2 avoid anything was salt since he is having some lower extremity edema and also already have some portal hypertension. He does take diuretics for that. 03/28/2024 the patient is here for a pulmonary follow-up visit. The patient overall has been doing okay. He was briefly hospitalized in he underwent endoscopy demonstrating varices. Status post banding. He was diagnosed with portal hypertension. His placed on blood pressure medications. He is also taking diuretics. He is having issues with hoarseness. He has been tolerating the CPAP the CPAP therapy has been affecting beneficial. He is having issues with his mask. I will request a replacement mask, F40 so they can be fit to him. I believe this mask would be lot more comfortable for him. He does find CPAP to be very affecting beneficial. Patient also has been having issues with shortness of breath and deconditioning. He has also gained weight. We did talk about pulmonary rehabilitation is been be very effective for him. He is going to think about it. In the meantime will plan to follow-up with PFTs for his next follow-up in then we can discuss about pulmonary rehab further. In the meantime he is going to make some dietary indiscretions and eliminate salt specially because his liver cirrhosis. On exam he does have some irritation to the left tonsil appears to be infection. Will go ahead and start him on chl orhexidine mouthwash. If he continues have the abnormality he should follow-up with his primary care. 06/27/2024 the patient is here for pulmonary follow-up visit. Overall he is doing okay. He denies any worsening respiratory symptoms. Has been tolerating the CPAP and also the oxygen at nighttime. The therapy has been affecting beneficial. In the meantime he did undergo pulmonary function studies. He does have a restrictive ventilatory defect. He also has some interstitial changes on his x-ray. He also repeat the x-ray at this time. I did recommend pulmonary clinical rehabilitation coordinator after having severe COVID. The patient is agreeable to at least get the initial evaluation and then he will decide if he wants to continue with the rehabilitation. He did take the chlorhexidine mouthwash and he states that the lesion on the back of the tonsil was gone and does reassuring. Needs to make sure to follow-up with a dentist and/or primary care. He is tolerating the Wixela inhaler. Is helping his breathing although he needs to make sure to rinse well and gargle to avoid thrush formation. He is still being evaluated for the liver cirrhosis. He is taking lactulose for his elevated ammonia levels but he seems to be stable. He states that his last MRI demonstrating no interval worsening of the cirrhosis. The patient is going to work on weight management and should increase his exercise capacity. Will plan to follow-up in early spring. If he has any issues prior to that will call for an earlier assessment. He will also get an x-ray whenever able. 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 Nocturnal hypoxia Altered mental state Nasal septal perforation Asbestos exposure GEOVANNI (obstructive sleep apnea) Dyspnea ILD (interstitial lung disease) COPD (chronic obstructive pulmonary disease) Social History Household Members: Spouse Housing: House Patient Tobacco Use Status: Never used Tobacco Substance Use Type: Other service: No Current occupational status: retired Review of Systems Const Denies chills, Denies fatigue, Denies fever(s), Reports weight gain and Denies weight loss Eyes Denies change in vision ENT Denies dizziness Card Denies chest pain, Denies leg edema, Denies lightheadedness, Denies palpitations, Reports dyspnea on exertion, Denies orthopnea and Denies other Resp Reports cough, Reports dyspnea on exertion and Denies wheezing GI Denies hematochezia and Denies change in stool character Musc Denies abnormal gait, Denies muscle weakness, Denies numbness, Denies radiating pain into limb and Denies tingling Skin/Breast Reports as per HPI Neuro Denies abnormal gait, Denies dizziness, Denies numbness and Denies tingling Endo Denies fatigue and Denies palpitations Ramana/Lymph Denies easy bleeding and Denies easy bruising Aller/Immun Denies wheezing Physical Exam Vital Signs: Last Vital Signs Pulse 86 06/27/24 10:12 BP 114/60 06/27/24 10:12 Pulse Ox 95 06/27/24 10:12 Oxygen Delivery Method Room Air 06/27/24 10:12 BMI result Body Mass Index 39.7 Const General: comfortable HEENT Head: Yes normal to inspection General nose exam: Abnormal nasal septum present perforated Throat: Yes abnormal tonsil (exudative appearance over the left tonsil) Eyes General: appearance normal, both eyes and all related structures Sclerae: scleral abnormal bilateral Neck Neck: Yes supple Chest Chest palpation & inspection: normal inspection of the chest Resp Effort & Inspection: normal respiratory effort Auscultation: no rhonchi, no wheezes and diminished lung sounds Cardio Rate: regular rate Rhythm: regular rhythm Heart sounds: S1 normal heart sound present and S2 normal heart sound present GI Inspection: Yes normal to inspection Skin General skin exam: no rashes or lesions noted Extrem General: No clubbing, No cyanosis and Yes edema Assessment & Plan Assessment & Plan (1) ILD (interstitial lung disease): Code(s): J84.9 - Interstitial pulmonary disease, unspecified Category: Medical (2) COPD (chronic obstructive pulmonary disease): Code(s): J44.9 - Chronic obstructive pulmonary disease, unspecified Category: Medical Qualifiers: COPD type: chronic bronchitis Chronic bronchitis type: simple Qualified Code(s): J41.0 - Simple chronic bronchitis (3) Dyspnea: Code(s): R06.00 - Dyspnea, unspecified Category: Medical Qualifiers: Dyspnea type: dyspnea on exertion Qualified Code(s): R06.09 - Other forms of dyspnea (4) GEOVANNI (obstructive sleep apnea): Code(s): G47.33 - Obstructive sleep apnea (adult) (pediatric) Category: Medical (5) Asbestos exposure: Code(s): Z77.090 - Contact with and (suspected) exposure to asbestos Category: Medical (6) Nasal septal perforation: Code(s): J34.89 - Other specified disorders of nose and nasal sinuses Category: Medical (7) 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, unspecified Category: Medical Plan Continue CPAP 13cm with 2L oxygen, F40 mask continue oxygen therapy NICOLE as needed Wixela diuresis as tolerated low Na diet CXR start Pulmonary rehab F/U 8 months Orders: Orders Pulmonary Rehab Today J84.9 - Interstitial pulmonary disease, unspecified, U09.9 - Post COVID-19 condition, unspecified Coding Level of Care Code Tele New Pt Level 4 (72884) Complex EM visit Add On G2211 Diagnoses ILD (interstitial lung disease) J84.9 Simple chronic bronchitis J41.0 COPD type: chronic bronchitis Chronic bronchitis type: simple Dyspnea on exertion R06.09 Dyspnea type: dyspnea on exertion GEOVANNI (obstructive sleep apnea) G47.33 Asbestos exposure Z77.090 Nasal septal perforation J34.89 [id number] syndrome U09.9 Time Spent (min) 17
--- OUTSIDE RECORDS SUMMARY | 2024-06-27 11:06 | XMS_ITS | Patient Health Record ---
Author Organization [facility] [place] Address [address] [place] [address] Care Team Providers Care Tactical Air Control Party Name Role Phone [place] [facility] Primary Care Provide r Sathish AdamInocencio Unavailable [phone] Allergies No Known Allergies Reason For Referral No Information Medications Medication SIG (Take, Route, Frequency, Duration) Notes Start Date End Date Status Omeprazole 40 MG 1 capsule 30 minutes before morning meal Orally Once a day for 30 day(s) Active Spironolactone 50 MG 1 tablet Orally Onc e a day for 30 day(s) Active Gabapentin Not-Takin g Lasix 40 MG 1 tablet Orally Once a day for 30 day(s) Active Multivitamin Active Venlafaxine HCl 75 MG 1 tablet with food Orally Once a day for 30 day(s) Active Albuterol Active Fish Oil Active Custom Orthotics as directed A ctive Social History Tobacco Use: Social History Observation Description Date Details (start date - stop date) Never Smoker NA - NA Tobacco Use/Smoking Question Answer Notes Are you a: nonsmoker Additional Findings: Tobacco Non-User Current no n-smoker Alcohol Screen Question Answer Notes Did you have a drink containing alcohol in the p ast year? No Points 0 Interpretation Negative Tobacco use other than smoking: Question Answer Notes Are you an other tobacco user? No Problems Problem Type SNOMED Code ICD Code Onset Dates Problem Status W/U Status Risk Notes Problem Other hammer toe(s) (acquired), right foot (M20.41) Active confirmed Plan Of Treatment Pending Test Test Name Order Date X ray : Foot, right 3V 07/24/2022 Insurance Providers Payer Name Payer Address Payer Phone Subscriber Number Group Number Insured Name Patient Relationship to Insured Coverage Start Date Coverage End Date [employer] Medicare Complete [address] [address] [place] [address] [phone] [id number] Raul Rome Self - patient is the insured Medical (General) History Medical History History ICD Code Anxiety Back,Hip,and Knee pain High blood pressure Liver disease Lung disease Numbness Reflux ( GERD) ulcer Measles Chicken pox Joint implants/screws Surgical History Surgery Date(Month/Year) hip replacement 10/2017 rotator cuff 2010 back surgery 2014 Hospitalization History Reason Date(Month/Year) [facility] 02/2022 [facility] - Detox, Mental health Issues 06/2022
--- OUTSIDE RECORDS SUMMARY | 2024-06-27 11:06 | XMS_ITS ---
[facility] [place] Address [address] [place] [address] Care Team Providers Care Ed Physicians Name Role Phone [place] Primary Care Provide Inocencio Cannon Unavailable [phone] Allergies No Known Allergies REASON FOR VISIT Wart(s) Medications Medication SIG (Take, Route, Frequency, Duration) Notes Start Date End Date Status Omeprazole 40 MG 1 capsule 30 minutes before morning meal Orally Once a day for 30 day(s) Active Spironolactone 50 MG 1 tablet Orally Onc e a day for 30 day(s) Active Lasix 40 MG 1 tablet Orally Once a day for 30 day(s) Active Multivitamin Active Venlafaxine HCl 75 MG 1 tablet with food Orally Once a day for 30 day(s) Active Gabapentin Not-Takin g Albuterol Active Fish Oil Active Custom Orthotics [...] Are you an other tobacco user? No Vital Signs Height 5ft 7in in 02/02/2023 Weight 225 lbs 02/02/2023 BMI 35.24 kg/m2 02/02/2023 Encounters Encounter Location Date Provider [facility] [address] [place] [id number] 02/02/2023 Inocencio Adam Plantar fascial fibromatosis M72.2 ; Calcaneal spur, right foot M77.31 ; Other hammer toe(s) (acquired), right foot M20.41 ; Cicatrix L90.5 ; Other viral warts B07.8 ; Pain in left foot M79.672 and Pain in right foot M79.671 Assessments Encounter Date Diagnosis (ICD Code) Assessment Notes Treatment Notes Treatment Clinical Notes Section Notes 02/02/2023 Plantar fascial fibromatosis (ICD-10 - M72.2) 02/02/2023 Calcaneal spur, right foot (ICD-10 - M77.31) 02/02/2023 Other hammer toe(s) (acquired), right foot (ICD-10 - M20.41) 02/02/2023 Cicatrix (ICD-10 - L90.5) 02/02/2023 Other viral warts (ICD-10 - B07.8) 02/02/2023 Pain in left foot (ICD-10 - M79.672) 02/02/2023 Pain in right foot (ICD-10 - M79.671) Plan Of Treatment Medication Medication Name Sig Start Date Stop Date Notes Custom Orthotics as directed Next Appt Details Follow Up: prn, Reason: Procedure Notes * Category Sub-Category Detail Notes Wart Treatment Procedure Verrucae(s) were debrided to pin-point bleeding margins with sterile surgical blade (74074), silver nitrate chemocautery applied, CIRCULATION: Any more invasive procedure to wart deferred due to circulation risk Progress Notes * Raul ALMONTE PDOB:[birth year] (62 yo M)Acc No.[id number]:02/02/2023 Progress Note Patient:?Raul Almonte Provider:?Inocencio Adam DPM :1960???Age:62 Y???Sex:Male Tae e:02/02/2023 Address:[address] [place], [place] [id number] Pcp:Le Leon in Subjective: * Chief Complaints: * ???Wart(s) * HPI: ???Heel pain:?Nature:?sharp pain and hx of ulcer/infection and tx inpatient [place] [facility] and then [facility] TCC at [facility] ctr.?Location:?Proximal plantar aspect of Heel, RIGHT.?Duration:?a year or more.?Onset/Cause:?predm.?Course:?unresolved.?Aggrevated:?any pressure, standing, walking.?Treatments:?[facility] ctr and , change in shoes; pt has complied with silicone gel padding to area and he would like to have custom orthoses made for condition .?Wart:?Pt States Last PCP Visit:?Date:?01/27/2023 * ROS:?General/Constitutional:?Nausea?denies.?Vomiting?denies.?Hunger Thirst?denies.?Loss appetite?denies.?Chills?denies.?Fatigue?denies.?Fever?denies.?Night Sweats?denies.?Unexplained weight loss?denies.?Unexplained weight gain?denies.?HEENTM:?Dentures?denies.?Dizziness?denies.?Glasses/contacts?admits.?Retinopathy?de nies.?Blurred/double vision?denies.?TMJ?denies.?Discharge/drainage?denies.?Implants?denies.?Sore throat?denies.?Dental implants?denies.?Hard of hearing ?denies.?Difficulty chewing/swallowing/speaking?denies.?Nose bleeds?denies.?Sore mouth?denies.?Respiratory:?On Oxygen?denies.?Pneumonia/pleurisy?denies.?Bronchitis?denies.?Emphysema?denies.?C oughing?denies.?Cough blood?denies.?Shortness of breath?denies.?Wheezing?denies.?Cardiovascular:?Pacemaker?denies.?MVP?denies.?WPW?denies.?CHF?denies.?Heart attack?denies.?Septal defect?denies.?Rapid beat?denies.?Chest pain ?denies.?Atrial Fib.?denies.?Murmur/Palpitations?denies.?Gastrointestinal:?Hemorrhoids?denies.?Stomach/Abdominal pain?denies.?Dark blood stool?denies.?Irritable bowel ?denies.?Constipation?denies.?Diarrhea?denies.?Hematology:?Swelling?denies.?Clots?denies.?Varicose Veins?denies.?Bruising?denies.?Bleeding problem?denies.?Genitourinary:?Blood urine?denies.?Frequent/Painfu/urination/bladder control?denies.?Kidney stones?denies.?Infection (UTI)?denies.?Nephropathy?denies.?sex trans dis (STD)?denies.?Prostate?denies.?Musculoskeletal:?Hammertoes?denies.?Bunions?denies.?Back Pain?denies.?Muscle Cramps/ Resting?denies.?Muscle cramps / walking?denies.?Generalized aches and pains?denies.?Weakness?denies.?Integ.:?[place]?denies.?Scars?denies.?Corns/calluses?denies.?Ingrown nails?denies.?Painful nails?denies.?Open Sores?denies.?Rashes?denies.?Neurologic:?Difficulty sleeping?denies.?Brain disorder?denies.?Numbness?denies.?Balance trouble?denies.?Confusion?denies.?Fainting/blackouts?denies.?Tingling?denies.?Tr emors?denies.? * Medical History:? * Surgical History:?hip replac ement 10/2017rotator cuff 2010back surgery 2015 * Hospitalization/Major Diagno stic Procedure:?[facility] - Detox, Mental health Issues 06/2022[facility] [place] 02/[place] * Family History:?Mother: dece ased, kidney/liver disease, poor circulation.?Father: , diagnosed with Unspecified heart disease.?Maternal aunt: poor circulation.?Spouse: alive.? * Social History:?Tobacco Use:?Tobacco Use/Smoking?Are you a:?nonsmoker ?Additional Findings: Tobacco Non-User?Current non-smoker ?Tobacco use other than smoking?Are you an other tobacco user??No ???Drugs/Alcohol:?Drugs?Have you used drugs other than those for medical reasons in the past 12 months??No ?Alcohol Screen?Did you have a drink containing alcohol in the past year??No ?Points?0 ?Interpretation?Negative ???Miscellaneous:?Caffeine: yes. ?Exercise: yes, walking. ?Marital status: . ?Occupation: Retired. * Medications:?TakingAlbuterol Fish Oil Lasix 40 MG Tablet 1 tablet Orally Once a dayMultivitamin Venlafaxine HCl 75 MG Tablet 1 tablet with food Orally Once a dayOmeprazole 40 MG Capsule Delayed Release 1 capsule 30 minutes before morning meal Orally Once a daySpironolactone 50 MG Tablet 1 tablet Orally Once a dayCustom Orthotics as directed Taking Albuterol Taking Fish Oil Taking Lasix 40 MG Tablet 1 tablet Orally Once a dayTaking Multivitamin Taking Venlafaxine HCl 75 MG Tablet 1 tablet with food Orally Once a dayTaking Omeprazole 40 MG Capsule Delayed Release 1 capsule 30 minutes before morning meal Orally Once a dayTaking Spironolactone 50 MG Tablet 1 tablet Orally Once a dayTaking Custom Orthotics as directed Not-Taking/PRNGabapentin Medication List reviewed and reconciled with the patientNot-Taking/PRN Gabapentin Medication List reviewed and reconciled with the patient * Allergies:?N.K.D.A.yes[Aller gies Verified] Objective: * Vitals:?Ht: 5ft 7in, Wt:225, BMI:35.24, Shoe size: 10, Ht-cm: 170.18 cm, Wt-k.06 kg. * Examination: ???General Examination: ?GENERAL APPEARANCE:?pleasant, alert, well nourished, well developed, well hydrated, with good attention to hygene/body habitus, and in no acute distress.?ORIENTED:?person,place, and time.?Neurological: ?SENSORY:?Neurological exam reveals intact sensorium, pain sensation normal, vibration sensation intact, pinprick sensation is normal in the lower extremities, pt denies, anesthesia, burning, paresthesia, tingling, B/L.?TINEL'S COMPRESSION:?Negative tarsal tunnel, lina pedis, and medial calcaneal nerves, B/L.?BABINSKI REFLEX:?Absent, B/L.?Vascular: ?DP PULSES:?2/4, B/L.?PT PULSES:?2/4, B/L.?CAPILLARY FILL TIME:?3 secs. per digit, B/L.?SKIN TEMPERTURE GRADIENT OF THE LOWER EXTERMITIES:?warm to cool, proximal to distal, B/L.?HAIR GROWTH/TEXTURE/ELASTICITY/TURGOR:?normal, B/L.?EDEMA:?no edema.?Dermatologic: ?SKIN FINDINGS:? Skin exam reveals Keratotic lesion(s) located at, Heel(s), Right with 3 ecrine poroma's noted in healed ulcer region plantar right heel.?VERRUCA:? Reveals a Single , multi-loculated , mosaic-patterned, round, raised, flat-topped, petechial bleeding papule(s), with cauliflower appearance and interruption of skin lines, pain to lateral compression, and size estimated at __2__ mm diameter, plantar Heel, RIGHT.?Heel Pain: ?INSPECTION REVEALS:?Pain on Palpation to Plantar Fascia med. and central bands, intrinsic musc., infracalcaneal bursa, and med calc tubercle, RIGHT foot--pl-central right heel.?Orthopedic: ?MUSCLE STRENGTH:?5/5 all groups in a symmetrical fashion B/L.?GAIT ABNORMALITY:?pronated, abducted, B/L.?DIGITAL DEFORMITIES:? Digital contracture, PIPJ, 2-5 B/L, non-reducible with WB or to push-up test, no over, nor underlapping.? 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 Plan: * Treatment: * Procedures:?Wart Treatment:?Procedure?Verrucae(s) were debrided to pin-point bleeding margins with sterile surgical blade (22284), silver nitrate chemocautery applied, CIRCULATION: Any more invasive procedure to wart deferred due to circulation risk.? * Procedure Codes:?14699 Wart Destruction, 1-14, Modifiers: XS * Preventive Medicine:? ??Counseling:?Discussion:?-14: Office or other outpatient visit for the evaluation and management of an established patient, which required a medically appropriate history and/or examination and MODERATE level of DECISION MAKING for: 1 OR MORE CHRONIC PROBLEM(S) THATS WORSENING, 2 STABLE CHRONIC PROBLEMS, A NEWLY DIAGNOSED PROBLEM WITH UNCERTAIN PROGNOSIS, AN ACUTE COMPLICATED INJURY WITH MULTIPLE TREATMENT OPTIONS, OR AN ACUTE PROBLEM WITH ACCOMPANYING SYSTEMIC SYMPTOMS, THAT POSE(S) A MODERATE RISK OF MORBIDITY. THIS CONDITION MAY ALSO INCLUDE RX DRUG MANAGEMENT, OR A DECISON FOR MINOR SURGERY. The visit on the day of the encounter encompassed interpreting the data and educating the patient as to the nature of their condition, treatment options available according to their individual PMH, meds, allergies, and overall health/living conditions, as well as any potential risks or complications that may occur from a failure to adhere to, and participate in, the recommended course of therapy. The discussion included a complete verbal, and/or written explanation of the examination results, any x-rays taken, the proposed diagnosis, and outline of the treatment plan. A schedule for future care needs was also explained. The patient verbalized an understanding of the instructions at this time and agreed to be an active participant in their treatment. If the patient should think of any questions or concerns after the visit, I have encouraged the patient to call the office.?Orthotic Dispensing:?The patient presents today for fitting and dispensing of orthotics. The inserts were checked against the prescription and found to be accurate. They were properly fitted to the patient's feet in both weight-bearing and non-weight bearing attitudes. The patient was instructed to gradually increase the amount of time they are wearing the orthoses, starting with one hour the first day and thereon progressively increasing the amount of time used until they are comfortable to be worn all day and with all activities. They were asked to call the office if any signs of skin irritation were noted including redness, blistering or callous formation. The patient verbally indicated a full understanding of all the above information, Handout reviewed and dispensed, The patient signed confirmation form indicating receipt of DME device.? * Follow Up:?prn * Images: * Sign off status: Completed true * Provider:?Inocencio Adam DPM Date:? 023 Generated for Tatyana leger/Love/Guidoitting on:?06/27/2024 11:05 AM EDT History and Physical Notes * HPI (History of Present Illness) Category Sub-Category Detail Notes Category Not es Heel pain Duration: a year or more Nature: sharp pain and hx of ulcer/infection and tx inpatient at [facility] and then 17 TCC at [facility] ctr Location: Proximal plantar asp ect of Heel, RIGHT Onset/Cause: predm Aggravated: any pressure, standi ng, walking Course: unresolved Treatments: [facility] and , c hange in shoes; pt has complied with silicone gel padding to area and he would like to have custom orthoses made for condition Wart Pt States Last PCP Visit: Date:: 01/27/2023 Examination Category Sub-Category Detail Notes Category Not es Heel Pain INSPECTION REVEALS: Pain on Palp ation to Plantar Fascia med. and central bands, intrinsic musc., infracalcaneal bursa, and med calc tubercle, RIGHT foot--pl-central right heel Neurological SENSORY: Neurological exa m reveals intact sensorium, pain sensation normal, vibration sensation intact, pinprick sensation is normal in the lower extremities, pt denies, anesthesia, burning, paresthesia, tingling, B/L BABINSKI REFLEX: Absent, B/L TINEL'S COMPRESSION: Negative tarsal luca marina, lina pedis, and medial calcaneal nerves, B/L Dermatologic SKIN FINDINGS: Skin exam reveal s Keratotic lesion(s) located at, Heel(s), Right with 3 ecrine poroma's noted in healed ulcer region plantar right heel VERRUCA: Reveals a Single , m ulti-loculated , mosaic-patterned, round, raised, flat-topped, petechial bleeding papule(s), with cauliflower appearance and interruption of skin lines, pain to lateral compression, and size estimated at __2__ mm diameter, plantar Heel, RIGHT Orthopedic GAIT ABNORMALITY: pronated, abducted, B/L DIGITAL DEFORMITIES: Digital contracture , PIPJ, 2-5 B/L, non-reducible with WB or to push-up test, no over, nor underlapping MUSCLE STRENGTH: 5/5 all groups in a symmetrical fashion B/L General Examination GENERAL APPEARANCE: pleasant , alert, well nourished, well developed, well hydrated, with good attention to hygene/body habitus, and in no acute distress ORIENTED: person,place, and ti me Vascular DP PULSES (B): 2/4, B/L PT PULSES (B): 2/4, B/L CAPILLARY FILL TIME: 3 secs. per digit, B/L TEMPERTURE GRADIENT (C): warm to cool, p roximal to distal, B/L TROPHIC CONDITION-TEXTURE/ELASTICITY/TURGOR/HAIR GROWTH (B): normal, B/L EDEMA (C): no edema
--- OUTSIDE RECORDS SUMMARY | 2024-06-27 11:06 | XMS_ITS | Clinical Summary ---
Author Organization [facility] [address] [facility] Address [address] [place] [address] Phone Care Team Providers Care Feller Operator Name Role Phone Le Lima MD Primary [...] 1 (one) time each day. Active omega 7-loa-nuv-fish oil 35-25-5-113.5 mg tablet,chewable Chew 1 capsule. [...] Noted Date Diagnosed Date Simple chronic bronchitis ([facility] V24, [facility] V28) 05/12/2024 Idiopathic pulmonary fibrosis ([facility] V24, [facility] V28) 05/12/2024 Secondary esophageal varices without bleeding ([facility] V24, [facility] V28) 07/20/2023 Elevated LDL cholesterol level 09/15/2021 Elevated hemoglobin A1c 09/15/2021 Post-nasal drip 09/12/2020 Unspecified abnormal involuntary movements 05/08 Depression 05/08/2020 Reflux esophagitis 08/12/2018 Erosive gastropathy 08/12/2018 Overview (11/24/2023): Non bleeding erosive gastropathy on EGD Alcoholic cirrhosis of liver with ascites ([facility] V24, [facility] V28) 04/14/2018 Back pain without radiculopathy 09/20/2017 [...] AHI 0.9. Colon polyp 06/16/2015 Overview (11/24/2023): [place] done 04[place]2015 [place] [facility] [place] Advised 5 yr follow up Factor 5 Leiden mutation, heterozygous ([facility] V24) 07/19/2014 Overview (11/24/2023): consider Lovenox postoperatively if needed any surgery Alcohol abuse, in remission 03/01/2013 Substance abuse in remission ([facility]/HCC V24, [facility]/ CC V28) 03/01/2013 Prepatellar bursitis of right knee 10/24/2012 Overview (11/24/2023): Hemorrhagic, post-traumatic, saw [facility] 10/06/12, suportive care with spider knee pad Obesity, unspecified 05/09/2009 Resolved Problems Problem Noted Date Diagnosed Date Resolved Date Polysubstance dependence, no n-opioid, in remission ([facility] V24, [facility] V28) 09/15/2021 Encounters Date Type Department Care Team Description 06/02/2024 4:14 PM EDT - 06/02/2024 11:59 PM EDT Hospital Encounter [facility] MRI [address] [place] [phone] Alcoholic cirrhosis of liver without ascites ([facility]/HCC V24, [facility]/HCC V28) Discharge Disposition: Home or Self Care 06/02/2024 3:45 PM EDT Lab Draw Station - [address] [phone] Alcoholic cirrhosis of liver without ascites ([facility]/HCC V24, [facility]/HCC V28) 05/25/2024 11:30 AM EDT Office Visit Gastroenterology [facility] [address] [phone] Catherine Linraes PA Alcoholic cirrhosis of liver without ascites ([facility]/HCC V24, [facility]/HCC V28) (Primary Dx); Alcohol abuse, in remission; Secondary esophageal varices without bleeding ([facility]/HCC V24, CMS/HCC V28); Polyp of colon, unspecified part of colon, unspecified type 05/25/2024 Telephone Gastroenterology [facility] 175 [facility] [address] [phone] Catherine Kemp PA 05/04/2024 Telephone Adult Medicine [place] [address] [place] [phone] Le Hernández MD Forms/questionnaires (PVTA) [...] under propofol UPPER GASTROINTESTINAL ENDOSCOPY 07/13/2018 PROCEDURE: CO UPPER GI ENDOSCOPY PERFORMED; COMMENT: Mild erosive antral gastritis; Lipscomb grade A reflux esophagitis. (Has been on daily treatment with Aleve) gastric biopsies: Mild reactive gastropathy, no active inflammation. Medical History Medical History Date Comments Alcohol abuse 05/09/2009 DX:Alcohol abuse Obesity, unspecified 05/09/2009 DX:Obesity, unspecified Factor 5 Leiden mutation, heterozygous (CMS/HCC V24) 07/19/2014 DX:Factor 5 Leiden mutation , heterozygous (HCC) Colon polyp 06/16/2015 DX:Colon polyp; COMMENT: [place] done 04/2015 Dr [place] [facility] [place] Advised 5 yr follow up Back pain without radiculopathy 09/20/2017 DX:Back pain without radiculopathy; COMMENT: Had microdiskectomy 2017 dr [place] Reflux esophagitis 08/12/2018 DX:Reflux eso phagitis Erosive gastropathy 08/12/2018 DX:Erosive g astropathy; COMMENT: Non bleeding erosive gastropathy on EGD Idiopathic pulmonary fibrosi s ([facility] V24, [facility] V28) 05/12/2024 Family History Medical History Relation Name Comments Heart attack Father [place] age 41 yr, d ied 54 yr, [...] PM EDT Office Visit Adult Medicine - [place] [address] [place] [phone] Le Lima MD [address] [place] [address] 10/23/2024 11:00 AM EDT Appointment [facility] Endoscopy [address] [place] [phone] Deny Reis DO 175 [facility] [address] [place] [address] 11/27/2024 11:30 AM EDT Office Visit Gastroenterology - [place] 175 [facility] 175 [facility] [address] [place] [phone] Catherine Linares PA 175 [facility] [address] [place] [address] Health Maintenance Due Date Last Done Comments [...] Signed Date: 06/02/2024 17:56 ET Workstation ID: [id number] Transcribed By: Self Edit Transcribed Date: 06/02/2024 [...] Signed Date: 06/02/2024 17:56 ET Workstation ID: [id number] Transcribed By: Self Edit Transcribed Date: 06/02/2024 17:41 ET Catherine CLAIRE IMG MRI PROCEDURES Final Resu lt * (ABNORMAL) CBC auto differential (06/02/2024 3:53 PM EDT) WBC 6.1 4.8 - 10.8 K/mcL LAB HEMETOLOGY METHOD 06/02/2024 4:22 PM EDT [facility] RBC 4.70 4.50 - 5.50 M/mcL LAB HEMETOLOGY METHOD [facility] Hemoglobin 13.4(L) 13.5 - 17.5 g/dL LAB HEMETOLOGY METHOD 06/02/2024 4:22 PM [facility] Hematocrit 41.0(L) 42.0 - 54.0 % LAB HEMETOLOGY METHOD 06/02/2024 4:22 PM [facility] MCV 87.6 79.0 - 98.0 FL LAB HEMETOLOGY METHOD 06/02/2024 4:22 PM [facility] MCH 28.6 27.0 - 32.0 pcg LAB HEMETOLOGY METHOD 06/02[facility]2024 4[facility] MCHC 32.7 32.0 - 37.0 g/dL LAB HEMETOLOGY METHOD 06/02/2024 4:22 PM [facility] RDW 16.1(H) 11.0 - 15.0 % LAB HEMETOLOGY METHOD 06/02/2024 4:22 PM [facility] Platelets 158 130 - 400 K/mcL LAB HEMETOLOGY METHOD 06/02/2024 4:22 PM [facility] MPV 10.8 7.0 - 11.0 FL LAB HEMETOLOGY METHOD 06/02/2024 4:22 PM [facility] NRBC 0.0 <1.0 % LAB HEMETOLOGY METHOD 06/02/2024 4:22 PM [facility] NRBC Absolute 0.00 <0.10 K/mcL LAB HEMETOLOGY METHOD 06/02/2024 4:22 PM [facility] Neutrophils Relative 60.7 % LAB HEMETOLOGY METHOD 06/02/2024 4:22 PM [facility] Lymphocytes Relative 24.7 % LAB HEMETOLOGY METHOD 06/02/2024 4:22 PM [facility] Monocytes Relative 11.0 % LAB HEMETOLOGY METHOD 06/02/2024 4:22 PM [facility] Eosinophils Relative 2.8 % LAB HEMETOLOGY METHOD 06/02/2024 4:22 PM [facility] Basophils Relative 0.5 % LAB HEMETOLOGY METHOD 06/02/2024 4:22 PM [facility] Immature Granulocytes Relative 0.3 % LAB HEMETOLOGY METHOD 06/02/2024 4:22 PM [facility] Neutrophils Absolute 3.68 1.50 - 7.00 K/mcL LAB HEMETOLOGY METHOD 06/02/2024 4:22 PM [facility] Lymphocytes Absolute 1.50 1.00 - 5.00 K/mcL LAB HEMETOLOGY METHOD 06/02/2024 4:22 PM [facility] Monocytes Absolute 0.67 0.20 - 1.00 K/mcL LAB HEMETOLOGY METHOD 06/02/2024 4:22 PM [facility] Eosinophils Absolute 0.17 0.00 - 0.50 K/mcL LAB HEMETOLOGY METHOD 06/02/2024 4:22 PM [facility] Basophils Absolute 0.03 0.00 - 0.20 K/mcL LAB HEMETOLOGY METHOD 06/02/2024 4:22 PM EDT [facility] Immature Granulocytes Absolute 0.02 0.00 - 0.03 K/[facility] LAB HEMETOLOGY METHOD 06/02/2024 4:22 PM EDT [facility] Blood Venous blood specimen / Unknown Venipuncture / Unknown 06/02/2024 3:53 PM EDT 06/02/2024 4:[address] [facility] BLOOD ORDERABLES Final Re sult Performing Organization Address City/Special Care [facility]/ZIP Co de Phone Number [facility] [address] [place] [address], [place] [phone] * Alpha fetoprotein tumor marker (06/02/2024 3:53 PM EDT) AFP <2.5 0.0 - 8.0 ng/mL LAB CHEMISTRY METHOD 06/02/2024 7:24 PM EDT [facility] Blood Venous blood specimen / Unknown Venipuncture / Unknown 06/02/2024 3:53 PM EDT 06/02/2024 4:07 PM EDT Narrative [facility] - 06/02/2024 7:24 PM EDT The Siemens Advia Centaur Chemiluminescent Immunoassay is used. Results obtained with different assay methods or kits cannot be used interchangeably. Results cannot be interpreted as absolute evidence of the presence or absence of malignant disease. Catherine CLAIRE LAB BLOOD ORDERABLES Final Re sult [facility] [address] [place] [address], [place] [phone] * (ABNORMAL) Ammonia (06/02/2024 3:53 PM EDT) Ammonia 65(H) 11 - 35 mcmol/L LAB CHEMISTRY METHOD 06/02/2024 4:32 PM [facility] Blood Venous blood specimen / Unknown Venipuncture / Unknown 06/02/2024 3:53 PM EDT 06/02/2024 4:05 PM EDT us Catherine CLAIRE LAB BLOOD ORDERABLES Final Re sult [facility] [address] [place] [address], [place] [phone] * (ABNORMAL) Comprehensive metabolic panel (06/02/2024 3:53 PM EDT) Sodium 140 133 - 145 mmol/L LAB CHEMISTRY METHOD 06/02/2024 6:07 PM [facility] Potassium 4.5 3.5 - 5.5 mmol/L LAB CHEMISTRY METHOD 06/02/2024 6:07 PM [facility] Chloride 106 96 - 110 mmol/L LAB CHEMISTRY METHOD 06/02/2024 6:07 PM [facility] CO2 26 21 - 32 mmol/L LAB CHEMISTRY METHOD 06/02/2024 6:07 PM [facility] Anion Gap 8 3 - 11 LAB CHEMISTRY METHOD 06/02/2024 6:07 PM [facility] Glucose 92 70 - 100 mg/dL LAB CHEMISTRY METHOD 06/02/2024 6:07 PM [facility] BUN 12 5 - 25 mg/dL LAB CHEMISTRY METHOD 06/02/2024 6:07 PM [facility] Creatinine 0.91 0.70 - 1.30 mg/dL LAB CHEMISTRY METHOD 06/02/2024 6:07 PM [facility] eGFR 94 >=60 mL/min/1. 73m2 LAB CHEMISTRY METHOD 06/02/2024 6:07 PM [facility] Comment:Calculation based on the??Chronic Kidney Disease Epidemiology Collaboration (CKD-EPI) equation refit??without adjustment for race. BUN/Creatinine Ratio 13.2 LAB CHEMISTRY METHOD 06/02/2024 6:07 PM [facility] Calcium 9.7 8.5 - 10.5 mg/dL LAB CHEMISTRY METHOD 06/02/2024 6:07 PM [facility] AST (SGOT) 60(H) 10 - 42 unit/L LAB CHEMISTRY METHOD 06/02/2024 6:07 PM [facility] ALT (SGPT) 58 10 - 60 unit/L LAB CHEMISTRY METHOD 06/02/2024 6:07 PM [facility] Alkaline Phosphatase 130(H) 42 - 121 unit/L LAB CHEMISTRY METHOD 06/02/2024 6:07 PM [facility] Total Protein 7.6 6.0 - 8.0 g/dL LAB CHEMISTRY METHOD 06/02/2024 6:07 PM [facility] Albumin 3.6 3.2 - 5.0 g/dL LAB CHEMISTRY METHOD 06/02/2024 6:07 PM [facility] Total Bilirubin 0.7 0.0 - 1.4 mg/dL LAB CHEMISTRY METHOD 06/02/2024 6:07 PM [facility] Blood Venous blood specimen / Unknown Venipuncture / Unknown 06/02/2024 3:53 PM EDT 06/02/2024 4:07 PM EDT us Catherine CLAIRE LAB BLOOD ORDERABLES Final Re sult [facility] [address] [place] [address], from Last 3 Months Insurance MEDICARE HUMAN Advance Directives Documents on File Type Date Recorded Patient Public Health Doctor Expl anation Health Care Decision (hx) 03/30/2018 [...] (hx) 03/30/2018 AD MUIR DIRECTIVE Care Teams Feller Operator Relationship Specialty Start Date End Date Le Lima MD [address] [place] [id number] PCP - General Internal Medicine 05/10/24
== END 2024-06-27 10:44 | disposition home or self-care (01) ==
LOC: HO.HPS 10:08
PROVIDERS: PCP Internal Medicine; Visit Provider Hospitalist
DX: J84.9 Interstitial pulmonary disease, unspecified (principal); J41.0 Simple chronic bronchitis; R06.09 Other forms of dyspnea; G47.33 Obstructive sleep apnea (adult) (pediatric); Z77.090 Contact with and (suspected) exposure to asbestos; J34.89 Other specified disorders of nose and nasal sinuses; U09.9 Post COVID-19 condition, unspecified
CPT/HCPCS: 99214; G2211

== ENCOUNTER → 2024-06-27 10:07 | Outpatient (BNVA) | payer MEDICARE, OTHER, SELFPAY | PROVIDERS: PCP Internal Medicine; Visit Provider Hospitalist | DX: J84.9 Interstitial pulmonary disease, unspecified (principal); J41.0 Simple chronic bronchitis; J34.89 Other specified disorders of nose and nasal sinuses; G47.33 Obstructive sleep apnea (adult) (pediatric); R06.09 Other forms of dyspnea; U09.9 Post COVID-19 condition, unspecified; Z77.090 Contact with and (suspected) exposure to asbestos; Z99.81 Dependence on supplemental oxygen | CPT/HCPCS: 99212 ==